=== PATIENT | male | born 1955 | race Caucasian/White ===

== ENCOUNTER 2020-11-05 15:57 | Outpatient (REF) | payer MEDICARE, MEDICAID, SELFPAY ==
[2020-11-05 17:04] LABS: Basophils Percent Auto 0.5 % (0-2); Imm Gran Abs Auto 0.09 X10*3/uL (0.00-0.03); Imm Gran Pct Auto 1.5 % (0.0-0.4); Mean Corpuscular HGB Conc 33.7 g/dl (31.0-36.0); PLT CLUMP 1; Red Cell Distribution Width 12.9 % (11.0-16.0); SCAN SMEAR FLAG 1
[2020-11-05 17:06] LABS: Eosinophils Absolute Auto 0.1 X10*3/uL (0.0-0.4); Eosinophils Percent Auto 1.8 % (0-4); Hematocrit 45.4 % (42-52); Hemoglobin 15.3 g/dl (14.0-18.0); Lymphocytes Absolute Auto 1.1 X10*3/uL (1.2-4.9); Lymphocytes Percent Auto 17.2 % (20-40); Mean Corpuscular Hemoglobin 30.4 pg (27.0-33.0); Mean Corpuscular Volume 90.3 fL (80-98); Mean Platelet Volume 11.2 fL (9.4-12.4); Monocytes Absolute Auto 0.4 X10*3/uL (0.1-1.2); Monocytes Percent Auto 6.1 % (2-11); Neutrophils Absolute Auto 4.5 X10*3/uL (2.0-8.3); Neutrophils Percent Auto 72.9 % (45-73); Platelet Count 112 X10*3/uL (160-400); Red Blood Count 5.03 X10*6/uL (4.60-5.80); White Blood Count 6.1 X10*3/uL (4.8-10.8)
[2020-11-05 17:23] LABS: Anion Gap 12 (12-20); Blood Urea Nitrogen 29 mg/dL (9-16); Calcium 9.5 mg/dL (8.4-10.2); Carbon Dioxide 26 mmol/L (22-29); Chloride 106 mmol/L (96-108); Estimated Glomerular Filt Rate 55; Sodium 139 mmol/L (135-145)
[2020-11-05 17:30] LABS: Creatinine Urine 32.61 mg/dL; Total Protein Urine Random < 7 mg/dL (<12)
== END 2020-11-05 15:58 | disposition home or self-care (01) ==
LOC: HO.LAB 15:57
PROVIDERS: Visit Provider Internal Medicine Hypertension Specialist
DX: N18.31 Chronic kidney disease, stage 3a (principal)
CPT/HCPCS: 36415; 80051; 82310; 82565; 84156; 84520; 85025

== ENCOUNTER 2021-05-07 09:07 | Outpatient (REF) | payer MEDICARE, MEDICAID, SELFPAY ==
[2021-05-07 11:04] LABS: Alanine Aminotransferase 32 U/L (0-40); Albumin Level 4.1 g/dL (3.5-5.0); Alkaline Phosphatase 84 U/L (39-117); Anion Gap 11 (12-20); Aspartate Amino Transferase 20 U/L (5-37); Bilirubin Total 1.1 mg/dL (0.0-1.0); Blood Urea Nitrogen 36 mg/dL (9-16); Calcium 9.9 mg/dL (8.4-10.2); Carbon Dioxide 31 mmol/L (22-29); Chloride 107 mmol/L (96-108); Estimated Glomerular Filt Rate 44; Glucose Random 83 mg/dL (60-115); Potassium 4.9 mmol/L (3.3-5.1); Sodium 144 mmol/L (135-145); Total Protein 6.8 g/dL (6.5-8.0)
[2021-05-07 11:29] LABS: Protein/Creatinine Ratio, Ur 0.07 (<0.2); Total Protein Urine Random 16 mg/dL (<12)
[2021-05-08 13:51] LABS: Calcium (PTHI) 9.6 mg/dL (8.6-10.3); PTHI 74 pg/mL (14-64)
== END 2021-05-07 09:08 | disposition home or self-care (01) ==
LOC: HO.LAB 09:07
PROVIDERS: Visit Provider Internal Medicine Hypertension Specialist
DX: I10 Essential (primary) hypertension (principal)
CPT/HCPCS: 36415; 80053; 83970; 84156

== ENCOUNTER 2022-11-24 09:37 | Outpatient (REF) | payer MEDICARE, SELFPAY ==
[2022-11-24 10:18] LABS: Hematocrit 47.6 % (42.0-52.0); Mean Corpuscular HGB Conc 33.6 g/dl (31.0-36.0); Mean Corpuscular Hemoglobin 30.1 pg (27.0-33.0); Mean Corpuscular Volume 89.5 fL (80.0-98.0); Mean Platelet Volume 9.9 fL (9.4-12.4); Platelet Count 132 X10*3/uL (160-400); Red Blood Count 5.32 X10*6/uL (4.60-5.80); Red Cell Distribution Width 13.5 % (11.0-16.0); White Blood Count 8.3 X10*3/uL (4.8-10.8)
[2022-11-24 10:50] LABS: Anion Gap 12 (12-20); Blood Urea Nitrogen 26 mg/dL (9-16); Calcium 9.5 mg/dL (8.4-10.2); Carbon Dioxide 27 mmol/L (22-29); Chloride 107 mmol/L (96-108); Estimated Glomerular Filt Rate 48; Glucose Random 140 mg/dL (60-115); Potassium 4.1 mmol/L (3.3-5.1); Sodium 142 mmol/L (135-145)
[2022-11-24 11:27] LABS: Protein/Creatinine Ratio, Ur 0.12 (<0.2); Total Protein Urine Random 50 mg/dL (<12)
== END 2022-11-24 09:38 | disposition home or self-care (01) ==
LOC: HO.LAB 09:37
PROVIDERS: Visit Provider Internal Medicine Hypertension Specialist
DX: N18.30 Chronic kidney disease, stage 3 unspecified (principal)
CPT/HCPCS: 36415; 80048; 82570; 84156; 85027

== ENCOUNTER 2024-03-29 13:23 | Outpatient (AMB) | payer MEDICARE, MEDICAID, SELFPAY ==
[2024-03-29 13:29] VITALS: BP 120/76; PULSE 97; O2SAT 97; BMI 26.7
--- NOTE | 2024-03-29 13:29 | HO.NEPHOV_ITS ---
Vital Signs 03/29/24 13:29 Height 5 ft 10 in Weight 186 lb BMI 26.7 BP 120/76 Blood Pressure Location Lt brachial Position Sitting Pulse 97 Pulse Source Pulse Oximeter Pulse Oximetry (%) 97 Oxygen Delivery Method Room Air Intake Visit Reasons: Previous pt-Transferring from [facility] [employer] Technician Required: No Accompanied by: Self / Same As Patient Allergies spironolactone Allergy (Unknown, Verified 03/29/24 13:33) Unknown Norvasc Allergy (Unknown, Uncoded 03/27/24 10:36) Unknown Medication List - Last Reconciled 03/29/24 by Lobito Quintanilla MD amlodipine 2.5 mg PO DAILY aspirin 81 mg PO DAILY atorvastatin 40 mg PO DAILY calcium carbonate-vitamin D3 600 mg-10 mcg (400 unit) 1 tab PO DAILY citalopram 20 mg PO DAILY cyclosporine 75 mg PO BID ferrous sulfate 325 mg PO Q OTHER DAY metoprolol tartrate 100 mg PO BID mycophenolate mofetil 500 mg PO BID pantoprazole 40 mg PO DAILY prednisolone 5 mg PO DAILY HPI Comments Details: Pleasant 68-year-old man with a history of cardiac transplant in 2003 He has mild CKD. Serum creatinine is between 1.2 to1.4 mg/dL. Recently had an episode of COVID-19 infection. He sustained BEBETO with a creatinine peaking at 2.18. Lasix was stopped. Renal function is improved. Recent creatinine is 1.23. Today he has no specific complaints today. [facility] Medical History (Updated 03/29/24 @ 13:39 by Lobito Quintanilla MD) Stage 3 chronic kidney disease Secondary hyperparathyroidism Hypertension Hyperlipidemia Anemia Surgical History H/O hernia repair Review of Systems Const Denies fever(s) and Denies weight loss Card Denies chest pain Resp Denies cough and Denies hemoptysis GI Denies abdominal pain, Denies diarrhea and Denies nausea Musc Denies back pain Neuro Denies focal weakness Physical Exam Vital Signs: Last Vital Signs Pulse 97 03/29/24 13:29 BP 120/76 03/29/24 13:29 Pulse Ox 97 03/29/24 13:29 Oxygen Delivery Method Room Air 03/29/24 13:29 BMI result Body Mass Index 26.7 Comfortable Neck supple no JVD. Lungs entry equal no rales. Heart S1-S2 heard no gallop or rub. Abdomen soft nontender. Neuro alert awake oriented. No asterixis. Extremities no edema. Results Reviewed Results Reviewed: As of 03/22/2024 serum creatinine 1.23 Nephrology Results: Hgb 16.0 g/dl (14.0-18.0) 11/24/22 WBC 8.3 X10*3/uL (4.8-10.8) 11/24/22 Plt Count 132 X10*3/uL (160-400) L 11/24/22 Sodium 142 mmol/L (135-145) 11/24/22 Potassium 4.1 mmol/L (3.3-5.1) 11/24/22 Chloride 107 mmol/L (96-108) 11/24/22 Carbon Dioxide 27 mmol/L (22-29) 11/24/22 BUN 26 mg/dL (9-16) H 11/24/22 Creatinine 1.46 mg/dL (0.5-1.4) H 11/24/22 Calcium 9.5 mg/dL (8.4-10.2) 11/24/22 Phosphorus 2.3 MG/DL (2.7-4.5) L 05/17/19 PTH Intact 74 pg/mL (14-64) H 05/07/21 Urine Creatinine 416.06 mg/dL 11/24/22 Protein/Creatinin Ratio 0.12 (<0.2) 11/24/22 Assessment & Plan Assessment & Plan (1) Heart transplant recipient: Code(s): Z94.1 - Heart transplant status Category: Medical (2) Stage 3 chronic kidney disease: Code(s): N18.30 - Chronic kidney disease, stage 3 unspecified Category: Medical Plan 68-year-old man with CKD setting of cardiac transplant. Renal function stable BEBETO has resolved. Recent creatinine was 1.23. This is probably his baseline. Blood pressure is well controlled. Fluid status is optimal. At this point we will hold off on using Lasix. I have encouraged him to keep watching his weight at home. If the weight goes up I will add Lasix 20 mg a day. Continue to avoid nephrotoxic agents including NSAIDs. He will continue to follow up with Cardiac transplant program in [facility]. Orders: Orders Complete Blood Count no Diff 6 Months N18.30 - Chronic kidney disease, stage 3 unspecified Basic Metabolic Panel 6 Months N18.30 - Chronic kidney disease, stage 3 unspecified Total Protein Urine Random 6 Months N18.30 - Chronic kidney disease, stage 3 unspecified UA and rflx microscopic 6 Months N18.30 - Chronic kidney disease, stage 3 unspecified Creatinine Urine 6 Months N18.30 - Chronic kidney disease, stage 3 unspecified Coding Level of Care Code Est Pt Level 4 (45404) Diagnoses Heart transplant recipient Z94.1 Stage 3 chronic kidney disease N18.30
--- OUTSIDE RECORDS SUMMARY | 2024-03-29 15:48 | XMS_ITS | Clinical Summary ---
Author Organization [facility] Address [address] [place] [address] Care Team Providers Care Mother Baby Rn Name Role Phone Patient, Has No Pcp Or Ref Primary Care Provider Unavailable Allergies Active Allergy Reactions Criticality Noted Date Comments Spironolactone Breast enlargement Medications aspirin 81 mg EC tablet 81 mg daily. 03/26/19 09 Active multivitamin no.44-vit D3-K 1,000-800 unit-mcg capsule Multivitamins CAPS 1TAB Qday, Refills: 0 Started -Mar-2008 Active 03/26/19 09 Active amoxicillin (AMOXIL) 500 mg capsule Take 4 capsules (2,000 mg total) by mouth daily. 1 HOUR PRIOR TO DENTAL APPOINTMENT 16 capsule 4 08/31/19 19 Active calcium carbonate-vitamin D3 600 mg(1,500mg) -400 unit per tablet Take 1 tablet by mouth once a day. 90 tablet 3 10/23/19 21 Active ferrous sulfate 325 mg (65 mg iron) tablet Take 1 tablet every other day 60 tablet 11 07/24/19 22 Active ciclopirox (PENLAC) 8 % solutionIndicatio ns:Onychomycosis Apply over nail and surrounding skin. Apply daily over previous coat. After seven (7) days, may remove with alcohol and continue cycle. 6.6 mL 3 4 8:00 AM EST 09/21/19 23 Active NeoraL 25 mg capsule Take 3 capsules (75 mg total) by mouth 2 times a day. 540 capsule 3 4 1:09 PM EDT 06/17/19 24 Active amLODIPine (NORVASC) 2.5 mg tablet Take 1 tablet (2.5 mg total) by mouth once a day. 90 tablet 3 4 11:20 AM EST 07/10/19 24 Active atorvastatin (LIPITOR) 40 mg tablet Take 1 tablet (40 mg total) by mouth daily. 90 tablet 3 4 9:53 PM EST 10/25/19 24 Active citalopram (CeleXA) 20 mg tablet Take 1 tablet (20 mg total) by mouth daily. 90 tablet 3 4 9:53 PM EST 10/25/[address] (PROTONIX) 40 mg tablet Take 1 tablet (40 mg total) by mouth once a day. 90 tablet 3 4 1:09 PM EDT 12/27/19 24 Active mycophenolate (CELLCEPT) 500 mg tabletIndications :Heart replaced by transplant (HCC) Take 1 tablet (500 mg total) by mouth 2 times a day. 180 tablet 3 4 1:09 PM EDT 12/28/19 24 Active predniSONE (DELTASONE) 5 mg tablet Take 1 tablet (5 mg total) by mouth daily. 90 tablet 3 03/21/19 25 Active losartan (COZAAR) 100 mg tabletIndications :Other hyperlipidemia Take 1 tablet (100 mg total) by mouth daily. 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 Patient has been seen by Pulmonology in 2021 with pulmonary function testing at the time showing a mild obstructive defect but is not currently on any inhalers Hyperparathyroidism due to renal insufficiency 0 03/12/2024 COVID 03/12/2024 Assessment & Plan (03/15/2024 9:53 AM EST): Patient has a history of heart failure requiring transplantation 20 years ago and is presenting to hospital from [place] secondary to hypoxic respiratory failure initially requiring high flow nasal cannula. Patient was ultimately able to be de-escalated to room air following multiple nebulizer treatments and steroids. Initial venous blood gas here showed PH of 7.54, PCO2 of 16.1, PO2 of 33, lactic acid of 3.58. Initial chest x-ray showed no gross focal consolidation, pleural effusion or pneumothorax; Hazy and streaky left basilar/retrocardiac opacities, likely representing atelectasis; Heart size and pulmonary vasculature within normal limits given technique; No acute osseous abnormality; Sternotomy wires. Patient's high sensitivity troponins were slightly elevated from 28 to 27 in emergency department. Patient's initial proBNP was 414 and on my evaluation he demonstrated no evidence of fluid overload. Patient received a dose of ceftriaxone as well as doxycycline prior to transfer over to our facility. - Transplant Infectious Disease consulted, appreciate recs - Continue COVID pna treatment, remdesivir x5 days - continue dexamethasone while admitted, switch back to home prednisone on discharge - discontinue antibiotics - Received 1x ceftriaxone and doxycycline -Sputum culture -Continuous pulse oximetry -Guaifenesin as needed for cough -Acetaminophen as needed for pain/fever -Strict airborne/contact precautions Assessment & Plan (03/14/2024 10:11 AM EST): Patient has a history of heart failure requiring transplantation 20 years ago and is presenting to hospital from [place] secondary to hypoxic respiratory failure initially requiring high flow nasal cannula. Patient was ultimately able to be de-escalated to room air following multiple nebulizer treatments and steroids. Initial venous blood gas here showed PH of 7.54, PCO2 of 16.1, PO2 of 33, lactic acid of 3.58. Initial chest x-ray showed no gross focal consolidation, pleural effusion or pneumothorax; Hazy and streaky left basilar/retrocardiac opacities, likely representing atelectasis; Heart size and pulmonary vasculature within normal limits given technique; No acute osseous abnormality; Sternotomy wires. Patient's high sensitivity troponins were slightly elevated from 28 to 27 in emergency department. Patient's initial proBNP was 414 and on my evaluation he demonstrated no evidence of fluid overload. Patient received a dose of ceftriaxone as well as doxycycline prior to transfer over to our facility. - Transplant Infectious Disease consulted - Continue COVID pna treatment, remdesivir x5 days - continue dexamethasone while admitted, switch back to home prednisone on discharge - discontinue antibiotics - Received 1x ceftriaxone and doxycycline -Sputum culture -Continuous pulse oximetry -Guaifenesin as needed for cough -Acetaminophen as needed for pain/fever -Strict airborne/contact precautions Assessment & Plan (03/13/2024 1:09 PM EST): Patient has a history of heart failure requiring transplantation 20 years ago and is presenting to hospital from [place] secondary to hypoxic respiratory failure initially requiring high flow nasal cannula. Patient was ultimately able to be de-escalated to room air following multiple nebulizer treatments and steroids. Initial venous blood gas here showed PH of 7.54, PCO2 of 16.1, PO2 of 33, lactic acid of 3.58. Initial chest x-ray showed no gross focal consolidation, pleural effusion or pneumothorax; Hazy and streaky left basilar/retrocardiac opacities, likely representing atelectasis; Heart size and pulmonary vasculature within normal limits given technique; No acute osseous abnormality; Sternotomy wires. Patient's high sensitivity troponins were slightly elevated from 28 to 27 in emergency department. Patient's initial proBNP was 414 and on my evaluation he demonstrated no evidence of fluid overload. Patient received a dose of ceftriaxone as well as doxycycline prior to transfer over to our facility. - Transplant Infectious Disease consulted - Continue COVID pna treatment, remdesivir x5 days - continue dexamethasone while admitted, switch back to home prednisone on discharge - discontinue antibiotics - Received 1x ceftriaxone and doxycycline -Sputum culture -Continuous pulse oximetry -Guaifenesin as needed for cough -Acetaminophen as needed for pain/fever -Strict airborne/contact precautions Acute kidney injury superimposed on CKD 03/12/19 25 Assessment & Plan (03/15/2024 9:53 AM EST): Patient has a history of chronic kidney disease and follows with Nephrology in the outpatient setting. Patient's baseline creatinine of 1.2-1.4; current creatinine of 2.18. Patient's troponins were trending flat and proBNP of slightly greater than 400. - Hold home losartan - Hold off on further fluids with heart failure history - Cr stable, 1.6, likely new baseline 2/2 CKD - Transplant nephrology consulted - Monitor [facility] daily Assessment & Plan (03/14/2024 10:11 AM EST): Patient has a history of chronic kidney disease and follows with Nephrology in the outpatient setting. Patient's baseline creatinine of 1.2-1.4; current creatinine of 2.18. Patient's troponins were trending flat and proBNP of slightly greater than 400. - Holding home losartan - urine electrolytes - Holding off on further fluids with heart failure history - Transplant nephrology consulted - Monitor [facility] daily Assessment & Plan (03/13/2024 1:09 PM EST): Patient has a history of chronic kidney disease and follows with Nephrology in the outpatient setting. Patient's baseline creatinine of 1.2-1.4; current creatinine of 2.18. Patient's troponins were trending flat and proBNP of slightly greater than 400. - Holding home losartan - urine electrolytes - Holding off on further fluids with heart failure history - Transplant nephrology consulted - Monitor [facility] daily Gastroesophageal reflux disease without esophagi tis 03/12/2024 Assessment & Plan (03/15/2024 9:53 AM EST): - Continue home pantoprazole 40 mg daily Assessment & Plan (03/14/2024 10:11 AM EST): - Continue home pantoprazole 40 mg daily Assessment & Plan (03/13/2024 10:11 AM EST): - Continue home pantoprazole 40 mg daily Abnormal stress test 11/17/2023 Hyperparathyroidism 03/18/2020 Subclinical hypothyroidism 02/15/2020 Assessment & Plan (03/14/2024 10:11 AM EST): Last reported TSH of 1.086 2 years ago. Patient not currently on supplementation - consider repeat TSH Assessment & Plan (03/13/2024 1:09 PM EST): Last reported TSH of 1.086 2 years ago. 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 Patient is chronically on mycophenolate mofetil, and cyclosporine as well as prednisone 5 mg daily. Patient has been seen by Pulmonology in 2021 with pulmonary function testing at the time showing a mild obstructive defect but is not currently on any inhalers and did not follow-up it seems. Patient was referred in the outpatient setting to go back to pulmonology for evaluation. Last reported echocardiogram in 2021 demonstrated ejection fraction of 70% with moderately dilated left atrium and inability to assess diastolic function. Patient had a positive stress test screening within the past month ultimately leading to catheterization on 02/10/2024 which demonstrated minimal luminal irregularities in the circumflex, right coronary artery and left anterior descending and left main. Cardiology was consulted in emergency department and did not believe that there was any acute intervention required on their end and believe this was all secondary to COVID and associated pneumonia -Continue home mycophenolate mofetil 500 mg twice daily, cyclosporine 75 mg twice daily -Transition home prednisone 5 mg daily to dexamethasone 6 mg daily x 7-day course in the setting of active COVID infection - Cardiology consulted, recommended continued monitoring, no changes to medications -Monitor patient on telemetry -Monitor vitals every 4 hours and CBC daily -Monitor daily weights and strict I's and O's Assessment & Plan (03/14/2024 10:11 AM EST): 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 Patient is chronically on mycophenolate mofetil, and cyclosporine as well as prednisone 5 mg daily. Patient has been seen by Pulmonology in 2021 with pulmonary function testing at the time showing a mild obstructive defect but is not currently on any inhalers and did not follow-up it seems. Patient was referred in the outpatient setting to go back to pulmonology for evaluation. Last reported echocardiogram in 2021 demonstrated ejection fraction of 70% with moderately dilated left atrium and inability to assess diastolic function. Patient had a positive stress test screening within the past month ultimately leading to catheterization on 02/10/2024 which demonstrated minimal luminal irregularities in the circumflex, right coronary artery and left anterior descending and left main. Cardiology was consulted in emergency department and did not believe that there was any acute intervention required on their end and believe this was all secondary to COVID and associated pneumonia -Continue home mycophenolate mofetil 500 mg twice daily, cyclosporine 75 mg twice daily -Transition home prednisone 5 mg daily to dexamethasone 6 mg daily x 7-day course in the setting of active COVID infection - Cardiology consulted, recommended continued monitoring, no changes to medications -Monitor patient on telemetry -Monitor vitals every 4 hours and CBC daily -Monitor daily weights and strict I's and O's Assessment & Plan (03/13/2024 1:09 PM EST): 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 Patient is chronically on mycophenolate mofetil, and cyclosporine as well as prednisone 5 mg daily. Patient has been seen by Pulmonology in 2021 with pulmonary function testing at the time showing a mild obstructive defect but is not currently on any inhalers and did not follow-up it seems. Patient was referred in the outpatient setting to go back to pulmonology for evaluation. Last reported echocardiogram in 2021 demonstrated ejection fraction of 70% with moderately dilated left atrium and inability to assess diastolic function. Patient had a positive stress test screening within the past month ultimately leading to catheterization on 02/10/2024 which demonstrated minimal luminal irregularities in the circumflex, right coronary artery and left anterior descending and left main. Cardiology was consulted in emergency department and did not believe that there was any acute intervention required on their end and believe this was all secondary to COVID and associated pneumonia -Continue home mycophenolate mofetil 500 mg twice daily, cyclosporine 75 mg twice daily -Transition home prednisone 5 mg daily to dexamethasone 6 mg daily x 7-day course in the setting of active COVID infection - Cardiology consulted, recommended continued monitoring, no changes to medications -Monitor patient on telemetry -Monitor vitals every 4 hours and CBC daily -Monitor daily weights and strict I's and O's Pulmonary nodule 01/13/2016 Dyspnea 01/21/2015 Hoarseness 01/21/2015 SOB (shortness of breath) 01/03/2015 Bowel incontinence 10/04/2014 Dyslipidemia 11/30/2013 Dyslipidemia 11/30/2013 Assessment & Plan (03/15/2024 9:53 AM EST): - Continue home atorvastatin 40 mg daily Assessment & Plan (03/14/2024 10:11 AM EST): - Continue home atorvastatin 40 mg daily Assessment & Plan (03/13/2024 10:11 AM EST): - Continue home atorvastatin 40 mg daily Trauma, blunt 08/31/2013 Sebaceous Hyperplasia 11/07/2012 Hemiparesis Of Right Side - (Nondominant Side) 0 03/17/2012 Late CVD Effects: Fluency Disorder 03/17/2012 Aphasia 03/17/2012 Stuttering 03/17/2012 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 13 Osteopenia 08/19/2010 Osteopenia 08/19/2010 Stroke syndrome 07/31/2010 Overview (11/26/2016): During Heart Transplant - 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 Adjustment disorder 07/31/2010 Essential hypertension 07/31/2010 Assessment & Plan (03/15/2024 9:53 AM EST): - Held home amlodipine in setting of lactic acidosis - Held home losartan due to acute kidney injury - Resume as pressures allow Assessment & Plan (03/14/2024 10:11 AM EST): - Holding home amlodipine in setting of lactic acidosis - Holding home losartan due to acute kidney injury Assessment & Plan (03/13/2024 10:11 AM EST): - Holding home amlodipine in setting of lactic acidosis - Holding home losartan due to acute kidney injury CKD stage 3a, GFR 45-59 ml/min 07/31/2010 Overview (12/28/2019): Reaplcing Diagnoses that were inactivated after 12/06/2019 regulatory diagnosis import. Abnormal PFTs SOB (shortness of breath) Resolved Problems Problem Noted Date Diagnosed Date Resolved Date Lactic acidosis 03/12/2024 03/15/2024 Assessment & Plan (03/14/2024 10:11 AM EST): Was noted emergency department to have initial lactic acid of 4.2 which improved to 2.0 with antibiotics and fluids. Patient was given stacked nebulizers in emergency department and at the moment demonstrates no signs of sepsis apart from a very slight leukopenia. -lactic acid resolved Assessment & Plan (03/13/2024 1:09 PM EST): Was noted emergency department to have initial lactic acid of 4.2 which improved to 2.0 with antibiotics and fluids. Patient was given stacked nebulizers in emergency department and at the moment demonstrates no signs of sepsis apart from a very slight leukopenia. -lactic acid resolved Encounters Date Type Department Care Team Description 03/21/[address] Cardiology Medicine [address] [place] [id number] Safety Supervisor: Stanislav Price MD 03/20/[address] Cardiology Medicine [address] [place] [id number] Safety Supervisor: Stanislav Price MD 03/12/2024 12:37 PM EST - 03/16/2024 3:25 PM EST Hospital Encounter [facility] Emergency Department [address] [place] [id number] Delmy Ocampo MD Pereira, Datson Marian, MD Thomas, Samuel, DO Madireddy, Rico Cuellar MD COVID-19 (Primary Dx); Other hyperlipidemia; COVID Discharge Disposition: Home or Self Care () 02/10/2024 9:20 AM EST - 02/10/2024 10:29 AM EST Surgery [facility] Heart [facility] V[facility] Interventional Lab [address] [place] [id number] Jerrell Camarillo MD Coronary angiography 02/10/2024 7:51 AM EST - 02/10/2024 3:08 PM EST Hospital Encounter [facility] V[facility] Interventional Lab [address] [place] [address] Jerrell Camarillo MD Heart replaced by transplant (HCC); Abnormal stress test Discharge Disposition: Home or Self Care () 02/09/2024 myChart Message [facility] Building 4th floor Cardiology Medicine [address] [place] [address] Safety Supervisor: Jerrell Christopher MD Cardiac cath tomorrow from Last 3 Months Family History Medical History Relation Name Comments Other Mother Family History of malignant neoplasm Other Other 1 Denied Family h istory of Thyroid Disorder Other Other 2 Denied Family h istory of Diabetes Mellitus Other Other 3 Denied Family h istory of Hip Fracture Other Other 4 Denied Family h istory of Osteoporosis Other Other 5 Family history of Brain Cancer Daughter Other Other 6 Family history of Lung Cancer Maternal Aunt - smoker Other Other 7 Family history of Coronary Artery Disease Father had CABG Other Other 8 Denied Family h istory of Stroke Syndrome Other Other 9 Denied Family h istory of Sarcoidosis Relation Name Status Comments Mother Other 1 Other 2 Other 3 Other 4 Other 5 Other 6 Other 7 Other 8 Other 9 Social History Tobacco Use Types Packs/Day Years Used Date Smoking Tobacco: Never Smokeless Tobacco: Never Tobacco Cessation:Counseling Given: Not Answered Comments:: Alcohol Use Standard Drinks/Week Comments No 0 (1 standard drink = 0.6 oz pur e alcohol) Sex and Gender Information Value Date Recorded Sex Assigned at Male 02/12/2020 11:42 AM EST Legal Sex Male 9:16 AM EDT Gender Identity Male 02/12/2020 11:42 AM EST Sexual Orientation Straight 02/12/2020 11 :42 AM EST Last Filed Vital Signs Vital Sign Reading Time Taken Comments Blood Pressure 125/82 03/16/2024 11:48 AM EST Pulse 76 03/16/2024 11:48 AM EST Temperature 36.9 ??C (98.4 ??F) 03/16/2024 11:[address] Respiratory Rate 18 03/16/2024 11:48 AM EST Oxygen Saturation 98% 03/16/2024 11:48 AM EST Inhaled Oxygen Concentration - - Weight 83.9 kg (185 lb) 03/12/2024 12:42 PM EST Height 177.8 cm (5' 10 ) 03/12/2024 12:42 PM EST Body Mass Index 26.54 03/12/2024 12:42 PM EST Plan of Treatment Upcoming Encounters Date Type Department Care Team (Late st Contact Info) Description 04/24/2024 1:00 PM EST Follow-Up [facility] 4th floor Cardiology Medicine [address] [place] [phone] Safety Supervisor: Mariah Matt 05/24/2024 10:30 AM EDT Follow-Up [address] Cardiology Medicine [address] [place] [phone] Safety Supervisor: Mariah Matt 06/25/2024 1:15 PM EDT Follow-Up [facility] 4th Floor [address] [place] [address] Safety Supervisor: Diane Sofia PA [address] [place] [address] Health Maintenance Due Date Last Done Comments Cologuard 1955 Colon Cancer Screening 1955 Colonoscopy 1957 FOBT / Fit Test 1957 Sigmoidoscopy 1957 Zoster Vaccines (1 of 2) 1976 RSV Vaccine (60+ years old and patients) (1 - Risk 60-74 years 1-dose series) 2017 Pneumococcal Vaccine: 65+ Years (3 of 3 - PPSV23 or PCV20) 06/08/2018 02/04/2014, 06/08/2013 25 Hydroxy / Vitamin D 07/24/2021 , 02/15/2020, 12/01/2010, Additional history exists PTH 07/24/2021 07/24/2020, 02/04, 12/01/2010, Additional history exists DTaP,Tdap,and Td Vaccines (2 - Td or Tdap) 11/03/2022 11/03/2012 COVID-19 Vaccine (4 - season) 2023 02/27/2021, 04/25/2020, 04/04/2020 Influenza Vaccine (#1) 2023 , 11/24/2017, 12/27/2016, Additional history exists Alcohol/Substance Use Screening 03/07/2024 Depression Screening and Follow-Up 03/07/2024 Health Care Proxy Review 03/07/2024 [employer] Annual Screening 03/07/2024 Basic Metabolic Panel 09/13/2024 03/16/2024 , 03/15/2024, 03/14/2024, Additional history exists Phosphorus 03/12/2025 03/12/2024, 11/05, 07/21/2023, Additional history exists Urine Microalbumin 03/15/2025 03/15/2024 Fall Risk Screening 03/16/2025 03/16/2024 Hemoglobin 03/16/2025 03/16/2024, 01/0 11/2024, 03/14/2024, Additional history exists Tobacco Screening 03/07/2042 11/24/2023 Hepatitis C Screening Completed 10/03/2015, 010 Statin Therapy Completed 10/25/2023 Hepatitis B Vaccines Aged Out No long er eligible based on patient's age to complete this topic Procedures * Due to [place] state law, this organization might not be sharing negative HIV tests. Procedure Name Priority Date/Time Associated Diagnosis Comments COMPREHENSIVE METABOLIC PANEL STAT 03/16/2024 10:24 AM EST CBC AUTO DIFFERENTIAL Timed 03/16/2024 7:28 AM EST MICROALBUMIN, RANDOM URINE WITH CREATININE Routine 03/15/2024 2:47 PM EST PRICE TOP, URN Routine 03/15/2024 2:47 PM EST UA/CULTURE REFLEX Routine 03/15/2024 2:4 7 PM EST URINALYSIS W/REFLEX TO MICROSCOPIC & CULTURE Routine 03/15/2024 2:47 PM EST COMPREHENSIVE METABOLIC PANEL Routine 03/15/2024 5:53 AM EST CBC AUTO DIFFERENTIAL Timed 03/15/2024 5:53 AM EST COMPREHENSIVE METABOLIC PANEL STAT 03/14/2024 8:35 AM EST CBC AUTO DIFFERENTIAL Timed 03/14/2024 7:40 AM EST SODIUM, RANDOM URINE STAT 03/13/2024 8:08 AM EST LACTIC ACID, PLASMA Routine 03/13/2024 5 :22 AM EST MAGNESIUM Routine 03/13/2024 5:22 AM EST CBC AUTO DIFFERENTIAL Timed 03/13/2024 5:22 AM EST COMPREHENSIVE METABOLIC PANEL Routine 03/13/2024 5:22 AM EST ECG 12-LEAD STAT 03/12/2024 9:25 PM EST LACTIC ACID, PLASMA REPEATED Timed 03/12/2024 8:16 PM EST LACTIC ACID, PLASMA W/ REPEAT STAT 03/12/2024 5:15 PM EST PHOSPHORUS STAT Add-on 03/12/2024 2:23 PM EST MAGNESIUM STAT Add-on 03/12/2024 2:23 PM EST TROPONIN T HIGH SENSITIVITY STAT 03/12/2024 2:23 PM EST XR CHEST PORTABLE 1 VIEW STAT 03/12/2024 1:20 PM EST GOLD TOP Routine 03/12/2024 12:50 PM EST RAINBOW DRAW Routine 03/12/2024 12:50 PM EST SMEAR REVIEW STAT 03/12/2024 12:49 PM EST PRICE TOP Routine 03/12/2024 12:49 PM EST LIGHT BLUE TOP Routine 03/12/2024 12:49 PM EST GOLD TOP Routine 03/12/2024 12:49 PM EST RED TOP Routine 03/12/2024 12:49 PM EST LAVENDER TOP Routine 03/12/2024 12:49 PM EST LAVENDER TOP Routine 03/12/2024 12:49 PM EST LIGHT GREEN TOP Routine 03/12/2024 12:49 PM EST LACTIC ACID, PLASMA STAT Add-on 03/12/2024 1 2:49 PM EST COMPREHENSIVE METABOLIC PANEL STAT Add-on 03/12/2024 12:49 PM EST CBC AUTO DIFFERENTIAL STAT Add-on 03/12/2024 12:49 PM EST N-TERMINAL PROBRAIN NATRIURETIC PEPTIDE STAT 03/12/2024 12:49 PM EST TROPONIN T HIGH SENSITIVITY STAT Add-on 03/12/2024 12:49 PM EST RAINBOW DRAW Routine 03/12/2024 12:49 PM EST POCT I-STAT LACTATE W/VBG Routine 03/12/2024 12:40 PM EST HEART & VASCULAR - SCANNED 03/12/2024 HEART & VASCULAR - SCANNED 03/12/2024 AMB EXTERNAL XR CHEST, OUTSIDE RESULT 03/12/2024 CARDIAC CATHETERIZATION Routine 02/10/20 24 11:24 AM EST Heart replaced by transplant (HCC) Abnormal stress test CARDIAC CATHETERIZATION Routine 02/10/20 11:24 AM EST Heart replaced by transplant (HCC) Abnormal stress test POCT I-STAT ACTIVATED CLOTTING TIME Routine 02/10/2024 11:12 AM EST ECG 12-LEAD Routine 02/10/2024 8:08 AM EST BASIC METABOLIC PANEL Routine 01/26/2024 1:44 PM EST ASHD (arteriosclerotic heart disease) CBC Routine 01/26/2024 1:44 PM EST ASHD (arteriosclerotic heart disease) VITAMIN D, 25-HYDROXY, TOTAL, IMMUNOASSAY Routine 07/24/2020 11:27 AM EDT Osteopenia Subclinical hypothyroidism Stage 3a chronic kidney disease Hyperparathyroidi sm (CMS/HCC) (HCC) PTH, INTACT (WITHOUT CALCIUM) Routine 07/24/2020 11:27 AM EDT Osteopenia Subclinical hypothyroidism Stage 3a chronic kidney disease Hyperparathyroidi sm (CMS/HCC) (HCC) HEPATITIS C ANTIBODY W/REFLEX TO HCV RNA, QUANTITATIVE PCR Routine 10/03/2015 10:44 AM EDT from Last 3 Months or Most Recently Relevant to Health Maintenance Results * Due to [place] state law, this organization might not be sharing negative HIV tests. * (ABNORMAL) Comprehensive Metabolic Panel (03/16/2024 10:24 AM EST) Only the most recent of5 resultswithin the time period is included. NA 139 135 - 145 mmol/L 03/16/2024 11:34 AM EST [facility] K 3.6 3.5 - 5.3 mmol/L 03/16/2024 11:34 AM EST [facility] Cl 104 98 - 107 mmol/L 03/16/2024 11:34 AM EST [facility] CO2 23 22 - 32 mmol/L 03/16/2024 11:34 AM EST [facility] Anion Gap 12 5 - 15 03/16/2024 11:34 AM EST [facility] Glucose 99 65 - 99 mg/dL 03/16/2024 11:34 AM EST [facility] Creatinine 1.38(H) 0.60 - 1.30 mg/dL 03/16/2024 11:34 AM EST [facility] Calcium 8.2(L) 8.6 - 10.5 mg/dL 03/16/2024 11:34 AM EST [facility] Total Protein 6.0 6.0 - 8.0 g/dL 03/16/2024 11:34 AM EST [facility] Albumin 3.5 3.5 - 5.2 g/dL 03/16/2024 11:34 AM EST [facility] Bilirubin, Total 0.8 0.2 - 1.2 mg/dL 03/16/2024 11:34 AM EST [facility] Alkaline Phosphatase 70 35 - 129 U/L 03/16/2024 11:34 AM EST [facility] AST 34 10 - 40 U/L 03/16/2024 11:34 AM EST [facility] ALT 41(H) 10 - 40 U/L 03/16/2024 11:34 AM EST [facility] BUN 41(H) 7 - 23 mg/dL 03/16/2024 11:34 AM EST [facility] eGFR 56(L) >=60 mL/min/1 .73m2 03/16/2024 11:34 AM EST [facility] Comment:The estimated glomer ular filtration rate (eGFR) is calculated using a new formula developed by the NKF-ASN task force to eliminate race-based correction factors. The new formula uses serum/plasma creatinine, age, and gender to determine eGFR. A value below 60mls/min might indicate kidney disease and will be flagged. For additional information, see Lisbeth et al, Am J Kidney Dis. 2021;79(2):268- 288, A Unifying Approach for GFR estimation: Recommendations of the NKF-ASN Task Force on Reassessing the Inclusion of Race in Diagnosing Kidney Disease . Globulin, Total 2.5 2.1 - 4.2 g/dL 03/16/2024 11:34 AM EST [facility] A/G Ratio 1.4(L) 1.5 - 3.0 03/16/2024 11:34 AM EST [facility] Blood Structure of peripheral vein / Unknown Venipuncture / Unknown 03/16/2024 10:24 AM EST 03/16/2024 10:53 AM EST Rico Landa MD LAB BLOOD ORDERABL ES Final Result [facility] [address] [place] [id number], * (ABNORMAL) CBC Auto Differential (03/16/2024 7:28 AM EST) Only the most recent of5 resultswithin the time period is included. WBC 6.8 3.8 - 10.8 10*3/uL 03/16/2024 8:39 AM EST [facility] RBC 5.57 4.20 - 5.80 10*6/uL 03/16/2024 8:39 AM EST [facility] Hemoglobin 16.3 13.2 - 17.1 g/dL 03/16/2024 8:39 AM EST [facility] Hematocrit 47.8 38.5 - 50.0 % 03/16/2024 8:39 AM EST [facility] MCV 85.8 80.0 - 100.0 fL 03/16/2024 8:39 AM EST [facility] MCH 29.3 27.0 - 33.0 pg 03/16/2024 8:39 AM EST [facility] MCHC 34.1 32.0 - 36.0 g/dL 03/16/2024 8:39 AM EST [facility] RDW 12.9 11.0 - 15.0 % 03/16/2024 8:39 AM EST [facility] Platelets 115(L) 140 - 400 10*3/uL 03/16/2024 8:39 AM EST [facility] MPV 11.2 7.5 - 12.5 fL 03/16/2024 8:39 AM EST [facility] Neutrophil % 78.6 % 03/16/2024 8:39 AM EST [facility] Immature Grans % 0.9 0.0 - 0.9 % 03/16/2024 8:39 AM EST [facility] Lymphocyte % 12.4 % 03/16/2024 8:39 AM EST [facility] Monocyte % 7.4 % 03/16/2024 8:39 AM EST [facility] Eosinophil % 0.6 % 03/16/2024 8:39 AM EST [facility] Basophil % 0.1 % 03/16/2024 8:39 AM EST [facility] Neutrophil # 5.34 1.50 - 7.80 10*3/uL 03/16/2024 8:39 AM EST [facility] Immature Grans # 0.06(H) <=0.03 10*3/uL 03/16/2024 8:39 AM EST [facility] Lymphocyte # 0.80(L) 0.85 - 3.90 10*3/uL 03/16/2024 8:39 AM EST [facility] Monocyte # 0.50 0.20 - 0.95 10*3/uL 03/16/2024 8:39 AM EST [facility] Eosinophil # <0.03 0.02 - 0.50 10*3/uL 03/16/2024 8:39 AM EST [facility] Basophil # <0.03 0.00 - 0.20 10*3/uL 03/16/2024 8:39 AM EST [facility] nRBC % 0.0 /100 WBCs 03/16/2024 8:39 AM EST [facility] nRBC # <0.01 <0.01 10*3/uL 03/16/2024 8:39 AM EST [facility] Blood Structure of peripheral vein / Unknown Venipuncture / Unknown 03/16/2024 7:28 AM EST 03/16/2024 8:15 AM EST Andrew Edward DO LAB BLOOD ORDERABLES Final Resu lt Performing Organization Address City/[facility]/ZIP Co de Phone Number [facility] [address] [place] [address], [place] * Price Top, Urine (03/15/2024 2:47 PM EST) Extra Tube Hold for add-ons. 03/15/2024 7:05 PM EST [facility] Comment:Auto resulted. Urine Urine specimen collection, clean catch / Unknown Non-Blood Collection / Unknown 03/15/2024 2:47 PM EST 03/15/2024 3:12 PM EST Rico Landa MD LAB URINE ORDERABL ES Final Result Performing Organization Address [facility]/ZIP Co de Phone Number [facility] [address] [place] [address], [place] * Urinalysis W/Reflex to Microscopic & Culture (03/15/2024 2:47 PM EST) Color, Urine Yellow Colorless, Light Yellow, Yellow, Dark Yellow 03/15/2024 3:35 PM EST [facility] Clarity, Urine Clear Clear 03/15/2024 3:35 PM EST [facility] Specific [place], Urine 1.023 1.005 - 1.030 03/15/2024 3:35 PM EST [facility] pH, Urine 5.0 4.6 - 8.0 03/15/2024 3:35 PM EST [facility] Protein, Urine Negative Negative 03/15/2024 3:35 PM EST [facility] Glucose, Urine Negative Negative 03/15/2024 3:35 PM EST [facility] Ketones, Urine Negative Negative 03/15/2024 3:35 PM EST [facility] Bilirubin, Urine Negative Negative 03/15/2024 3:35 PM EST [facility] Blood, Urine Negative Negative 03/15/2024 3:35 PM EST [facility] Nitrite, Urine Negative Negative 03/15/2024 3:35 PM EST [facility] Urobilinogen, Urine Normal Normal 03/15/2024 3:35 PM EST [facility] Leukocyte Esterase, Urine Negative Negative 03/15/2024 3:35 PM EST [facility] Urine Urine specimen collection, clean catch / Unknown Non-Blood Collection / Unknown 03/15/2024 2:47 PM EST 03/15/2024 3:19 PM EST us Rico Landa MD LAB URINE ORDERABL ES Final Result [facility] [address] [place] [address], [place] * (ABNORMAL) Microalbumin, Random Urine with Creatinine (03/15/2024 2:47 PM EST) Microalbumin, Urine 6.0 mg/dL 03/15/2024 10:14 PM EST [facility] Creatinine, Urine 133 22 - 328 mg/dL 03/15/2024 10:14 PM EST [facility] Microalb/Creat Ratio, Random Urine 45.1(H) <30.0 mcg/mgCr 03/15/2024 10:14 PM EST [facility] Comment: Microalbumin Reference Range: Normal ? <30 mcg/mg Creatinine Microalbuminuria ? 30-300 mcg/mg Creatinine Clinical Albuminuria >300 mcg/mg Creatinine Reference: ADA Guideline. Diabetes Care. 2004;27 (suppl 1) Urine Urine specimen collection, clean catch / Unknown Non-Blood Collection / Unknown 03/15/2024 2:47 PM EST 03/15/2024 3:19 PM EST Rico Landa MD LAB URINE ORDERABL ES Final Result Performing Organization Address [facility]/ZIP Co de Phone Number [facility] [address] [place] [phone], * (ABNORMAL) Sodium, Random Urine with Creatinine (03/13/2024 8:08 AM EST) Sodium, Urine 114 mmol/L 03/13/2024 8:43 AM EST [facility] Creatinine, Urine 36 22 - 328 mg/dL 03/13/2024 8:43 AM EST [facility] Sodium/Creatin ine, Urine Ratio 317(H) 23 - 229 mmol/gmCr 03/13/2024 8:43 AM EST [facility] Urine Voided urine specimen / Unknown Non-Blood Collection / Unknown 03/13/2024 8:08 AM EST 03/13/2024 8:14 AM EST Andrew Edward DO LAB URINE ORDERABLES Final Resu lt [facility] [address] [place] [address], * Magnesium (03/13/2024 5:22 AM EST) Only the most recent of2 resultswithin the time period is included. MG 2.3 1.6 - 2.4 mg/dL 03/13/2024 6:03 AM EST [facility] Blood Structure of peripheral vein / Unknown Venipuncture / Unknown 03/13/2024 5:22 AM EST 03/13/2024 5:33 AM EST Pager BLOOD ORDERABLES Final Resu lt Performing Organization Address [facility] Co de Phone Number [facility] [address] [place] [address], * Lactic Acid, Plasma (03/13/2024 5:22 AM EST) Only the most recent of2 resultswithin the time period is included. Lactic Acid 1.2 0.5 - 1.9 mmol/L 03/13/2024 6:10 AM EST [facility] Comment: Sepsis Screening: Initial Lactate Level >2.0 mmol/L - Repeat Lactate Level within 3 hours. Initial Lactate Level >4.0 mmol/L - Repeat Lactate Level within 3 hours, Initiate Septic Shock Protocol. Blood Structure of peripheral vein / Unknown Venipuncture / Unknown 03/13/2024 5:22 AM EST 03/13/2024 5:29 AM EST [facility] BLOOD ORDERABLES Final Resu lt Performing Organization Address [facility] Co de Phone Number [facility] [address] [place] [address], * ECG 12 lead (03/12/2024 9:25 PM EST) Only the most recent of2 resultswithin the time period is included. Ventricular Rate EKG 82 BPM MUSE EKG Atrial Rate 82 BPM MUSE EKG OH Interval 162 ms MUSE EKG QRS Interval 86 ms MUSE EKG QT Interval 420 ms MUSE EKG QTC Interval 490 ms MUSE EKG P Reading 17 degrees MUSE EKG R Reading 37 degrees MUSE EKG T Wave Reading 34 degrees MUSE EKG 03/12/2024 9:25 PM EST 03/18/2024 10:47 AM EST Impressions [facility]USE EKG - 03/18/2024 10:47 AM EST NORMAL SINUS RHYTHM NONSPECIFIC T WAVE ABNORMALITY PROLONGED QT INCOMPLETE RIGHT BUNDLE BRANCH BLOCK WHEN COMPARED WITH ECG OF 10-FEB-2024 08:08, T WAVE INVERSION NOW EVIDENT IN ANTERIOR LEADS QT HAS LENGTHENED Confirmed by Mariola Jacobs ([id number]) on 03/18/2024 10:47:13 AM Andrew Edward DO ECG ORDERABLES Final Result Performing Organization Address City/[facility]/ZIP Co de Phone Number [facility] * (ABNORMAL) Lactic Acid, Plasma (03/12/2024 8:16 PM EST) Lactic Acid 2.4(H) 0.5 - 1.9 mmol/L 03/12/2024 8:52 PM EST [facility] Blood Structure of peripheral vein / Unknown Venipuncture / Unknown 03/12/2024 8:16 PM EST 03/12/2024 8:21 PM EST Delmy Ocampo MD LAB BLOOD ORDERABLES Final Resul t [facility] [address] [place] [address], * (ABNORMAL) Lactic Acid, Plasma (w/Reflex if >2) (03/12/2024 5:15 PM EST) Lactic Acid 2.0(H) 0.5 - 1.9 mmol/L 03/12/2024 6:10 PM EST [facility] Comment:Specimen is hemolyze d, result may be falsely increased. Blood Structure of peripheral vein / Unknown Venipuncture / Unknown 03/12/2024 5:15 PM EST 03/12/2024 5:28 PM EST Delmy Ocampo MD LAB BLOOD ORDERABLES Final Resul t [facility] [address] [place] [address], [place] * (ABNORMAL) Repeat Troponin #1 (03/12/2024 2:23 PM EST) Only the most recent of2 resultswithin the time period is included. Pathologist [facility] [place] Troponin T High Sensitivity 27(H) <=21 ng/L 03/12/2024 3:00 PM EST [facility] Comment: Hb-Wbdoithn-J level of 52 ng/L or higher at 0-hour at presentation is recommended by the ESC 0/1-hour algorithm for identifying patients at high risk for ruling in acute myocardial infarction (AMI) in the appropriate clinical context. Repeat troponin testing 1-3 hours after the initial sample may be helpful in assessing for ongoing myocardial injury. Troponin elevations can be seen in several other non-infarct conditions, and the change (delta) should be evaluated in line with the 4th [place] Definition of AMI. Troponin baseline and serial elevation for a significant delta should be interpreted with clinical presentation, history, signs and symptoms, ECG, and biomarker concentrations. For inpatient setting: Value <12ng/L is considered negative for all genders. 0-1hr: A delta change of <3 will be considered negative/flat if chest pain onset >3 hours 0-3hr: A delta change of <7 will be considered negative/flat Blood Structure of peripheral vein / Unknown Venipuncture / Unknown 03/12/2024 2:23 PM EST 03/12/2024 2:28 PM EST us Delmy Ocampo MD LAB BLOOD ORDERABLES Final Resul t [facility] [address] [place] [address], [place] * Phosphorus (03/12/2024 2:23 PM EST) Phosphorus 2.8 2.5 - 4.5 mg/dL 03/12/2024 10:22 PM EST [facility] Blood Structure of peripheral vein / Unknown Venipuncture / Unknown 03/12/2024 2:23 PM EST 03/12/2024 2:28 PM EST Andrew Edward DO LAB BLOOD ORDERABLES Final Resu lt [facility] [address] [place] [address], [place] * XR Chest Portable 1 View (03/12/2024 1:20 PM EST) Anatomical Region Laterality Modality Body Computed Radiogr aphy 03/12/2024 1:23 PM EST Impressions 03/12/2024 1:33 PM EST FINDINGS AND IMPRESSION: No gross focal consolidation, pleural effusion or pneumothorax. Hazy and streaky left basilar/retrocardiac opacities, likely representing atelectasis. Heart size and pulmonary vasculature within normal limits given technique. No acute osseous abnormality. Sternotomy wires. I, Shira Gusman, have reviewed the examination and concur with the findings as reported or so edited. Trainee: ??Belem Nguyễn If this radiology report contains a blank impression section, it is an incomplete radiology report. ??Please contact the interpreting radiologist or applicable radiology division as soon as possible to obtain the completed interpretation. ? Workstation ID: [id number] Narrative 03/12/2024 1:33 PM EST COMPARISON: X-ray 11/22/2022. Resulting Agency Comment [id number] Procedure Note Shira Gusman MD - 03/12/2024 COMPARISON: X-ray 11/22/2022. IMPRESSION: FINDINGS AND IMPRESSION: No gross focal consolidation, pleural effusion or pneumothorax. Hazy andstreaky left basilar/retrocardiac opacities, likely representingatelectasis. Heart size and pulmonary vasculature within normal limits given technique.No acute osseous abnormality. Sternotomy wires. I, Shira Gusman, have reviewed the examination and concur with thefindings as reported or so edited. Trainee: Belem Nguyễn If this radiology report contains a blank impression section, it is anincomplete radiology report. Please contact the interpreting radiologistor applicable radiology division as soon as possible to obtain thecompleted interpretation. Workstation ID: [id number] Delmy Ocamop MD IMG XR PROCEDURES Final Result * Gold Top (03/12/2024 12:50 PM EST) Only the most recent of2 resultswithin the time period is included. Extra Tube Hold for add-ons. 03/12/2024 5:05 PM EST [facility] Comment:Auto resulted. Blood Structure of peripheral vein / Unknown Venipuncture / Unknown 03/12/2024 12:50 PM EST 03/12/2024 12:59 PM EST Delmy Ocampo MD LAB BLOOD ORDERABLES Final Resul t Performing Organization Address [facility]/ZIP Co de Phone Number [facility] [address] [place] [address], * Price Top (03/12/2024 12:49 PM EST) Extra Tube Hold for add-ons. 03/12/2024 5:05 PM EST [facility] Comment:Auto resulted. Blood Structure of peripheral vein / Unknown Venipuncture / Unknown 03/12/2024 12:49 PM EST 03/12/2024 12:58 PM EST Delmy Ocampo MD LAB BLOOD ORDERABLES Final Resul t Performing Organization Address City/[facility]/ZIP Co de Phone Number [facility] [address] [place] [address], * (ABNORMAL) Smear Review (03/12/2024 12:49 PM EST) Platelet Estimate Decrease d(A) Adequate 03/12/2024 2:08 PM EST [facility] RBC Morphology Present( A) Normal, No clinically significant RBC morphology present (ICSH guidelines, 2015). 03/12/2024 2:08 PM EST [facility] Fraser Cells 2+(A) Not Present 03/12/2024 2:08 PM EST [facility] Blood Structure of peripheral vein / Unknown Venipuncture / Unknown 03/12/2024 12:49 PM EST 03/12/2024 1:00 PM EST us Delmy Ocampo MD LAB BLOOD ORDERABLES Final Resul t [facility] [address] [place] [address], * (ABNORMAL) NT-proBNP (03/12/2024 12:49 PM EST) [facility] Pro-B-Type Natriuretic Peptide 414(H) <300 pg/mL 03/12/2024 2:09 PM EST [facility] Comment: Patient Age:? Congestive Heart Failure (CHF) Risk <18 Years:?Not Established 18-49 Years:? <300 pg/mL - Normal, CHF Unlikely ?>=450 pg/mL - High Probability of CHF 50-75 Years:? <300 pg/mL - Normal, CHF Unlikely ?>=900 pg/mL - High Probability of CHF >75 Years:?<300 pg/mL - Normal, CHF Unlikely ?>=1800 pg/mL - High Probability of CHF Blood Structure of peripheral vein / Unknown Venipuncture / Unknown 03/12/2024 12:49 PM EST 03/12/2024 1:38 PM EST Delmy Ocampo MD LAB BLOOD ORDERABLES Final Resul t Performing Organization Address [facility] de Phone Number [facility] [address] [place] [address], * Lavender Top (03/12/2024 12:49 PM EST) Only the most recent of2 resultswithin the time period is included. Extra Tube Hold for add-ons. 03/12/2024 5:05 PM EST [facility] Comment:Auto resulted. Blood Structure of peripheral vein / Unknown Venipuncture / Unknown 03/12/2024 12:49 PM EST 03/12/2024 1:00 PM EST Delmy Ocampo MD LAB BLOOD ORDERABLES Final Resul t Performing Organization Address [facility] de Phone Number [facility] [address] [place] [address], * Light Green Top (03/12/2024 12:49 PM EST) Extra Tube Hold for add-ons. 03/12/2024 5:05 PM EST [facility] Comment:Auto resulted. Blood Structure of peripheral vein / Unknown Venipuncture / Unknown 03/12/2024 12:49 PM EST 03/12/2024 12:59 PM EST Delmy Ocampo MD LAB BLOOD ORDERABLES Final Resul t Performing Organization Address [facility]/ZIP Co de Phone Number [facility] [address] [place] [phone], [place] * Red Top (03/12/2024 12:49 PM EST) Extra Tube Hold for add-ons. 03/12/2024 5:05 PM EST [facility] Comment:Auto resulted. Blood Structure of peripheral vein / Unknown Venipuncture / Unknown 03/12/2024 12:49 PM EST 03/12/2024 12:58 PM EST Delmy Ocampo MD LAB BLOOD ORDERABLES Final Resul t Performing Organization Address [facility] Co de Phone Number [facility] [address] [place] [address], [place] * Light Blue Top (03/12/2024 12:49 PM EST) Extra Tube Hold for add-ons. 03/12/2024 5:05 PM EST [facility] Comment:Auto resulted. Blood Structure of peripheral vein / Unknown Venipuncture / Unknown 03/12/2024 12:49 PM EST 03/12/2024 12:58 PM EST Delmy Ocampo MD LAB BLOOD ORDERABLES Final Resul t Performing Organization Address [facility] Co de Phone Number [facility] [address] [place] [address], [place] * (ABNORMAL) POCT I-STAT Lactate W/VBG, interfaced (03/12/2024 12:40 PM EST) Sample Type, POCT Venous 03/12/2024 12:43 PM EST [facility], [facility] Lactate, POCT 3.58(H) 0.9 - 1.7 mmol/L 03/12/2024 12:43 PM EST [facility], [facility] pH, POCT 7.54(H) 7.31 - 7.41 pH 03/12/2024 12:43 PM EST [facility] pCO2, POCT 16.1(L) 41 - 51 mm Hg 03/12/2024 12:43 PM EST [facility] pO2, POCT 33(L) 35 - 40 mm Hg 03/12/2024 12:43 PM EST [facility], [facility] Base Excess, POCT -9(L) 0 - 3 mmol/L 03/12/2024 12:43 PM EST [facility] HCO3, POCT 13.7(L) 23 - 28 mmol/L 03/12/2024 12:43 PM EST [facility] TCO2, POCT 14(LL) 24 - 29 mmol/L 03/12/2024 12:43 PM EST [facility] Saturated O2, POCT 75 70 - 75 % 03/12/2024 12:43 PM EST [facility], [facility] Javon's Test, POCT N/A 03/12/2024 12:43 PM EST [facility], POC Blood 03/12/2024 12:4 0 PM EST 03/12/2024 12:43 PM EST us Delmy Ocampo MD LAB POCT ORDERABLES - DEVICE Fin al Result [facility], [facility] [address] [place] [address], [place] * XR Chest, Outside Result (03/12/2024) Anatomical Region Laterality Modality Other 03/12/2024 us Onbase Scan Christa AMB EXTERNAL RESULT PROCEDURE S Final Result * HEART & VASCULAR - SCANNED (03/12/2024) Only the most recent of2 resultswithin the time period is included. Anatomical Region Laterality Modality Other us Onbase Scan Christa SCANNED PROCEDURES Final Resu lt * CORONARY ANGIOGRAPHY, LEFT HEART CATHETERIZATION (02/10/2024 11:24 AM EST) Anatomical Region Laterality Modality Heart X-Ray Angiograph y Narrative 02/20/2024 3:06 PM EST FINDINGS: Coronary angiography Right dominant coronary system. ? Left main. ??Large, no angiographic evidence of ??narrowing. ?? Left anterior descending. Large vessel, minimal luminal irregularities. Circumflex. Very large caliber, minimal luminal irregularities. Right coronary artery. Large caliber, high anterior take off, there is minimal luminal irregularities. Left heart catheterization Left ventricular end-diastolic pressure (mmHg): 10 mmHg Aortic valve: There was no significant aortic stenosis by pullback gradient. IMPRESSIONS: No evidence of angiographically significant coronary artery disease or cardiac allograft vasculopathy. Normal left ventricular end-diastolic pressure. RECOMMENDATIONS: Planned same-day discharge after recovery in 2SS. ??Follow-up with the referring physician. Further management as per the Cardiology team. Continue cardiovascular medications. Vascular access and post-cardiovascular catheterization care per protocol. Procedure Details The risks and alternatives of the procedures and conscious sedation were explained to the patient and informed consent was obtained. The patient was brought to the distillery laborer and placed on the table. The planned puncture sites were prepped and draped in the usual sterile fashion and a time-out was performed. Right radial artery access. The puncture site was infiltrated with 1% lidocaine. The vessel was accessed using the ultrasound-guided and micropuncture-assisted modified Seldinger technique, a wire was threaded into the vessel, and a 6 Fr sheath was advanced over the wire into the vessel. Right coronary artery angiography. A JR 4 catheter was advanced to the aorta and positioned in the vessel ostium under fluoroscopic guidance. Angiography was performed in multiple projections using hand-injection of contrast. Left coronary artery angiography. A JL 3.5 catheter was advanced to the aorta and positioned in the vessel ostium under fluoroscopic guidance. Angiography was performed in multiple projections using hand-injection of contrast. Left heart catheterization. A JR4 catheter was advanced across the aortic valve and left ventricular pressures were recorded. Hemostasis with TR Band. The attending physician performed the procedure and interpreted the results. Please refer to the Procedural Log for details. Coronary Findings Diagnostic Dominance: Right Left Main: The vessel was visualized by angiography, is large in size and is angiographically normal. Left Anterior Descending: The vessel was visualized by angiography and is large in size. The vessel exhibits minimal luminal irregularities. Left Circumflex: The vessel was visualized by angiography and is large in size. The vessel exhibits minimal luminal irregularities. Right Coronary Artery: The vessel was visualized by angiography and is large in size. The vessel exhibits minimal luminal irregularities. Intervention No interventions have been documented. Imaging Guidance Imaging guidance used for procedure: fluoroscopy and ultrasound. Ultrasound was used for evaluation of the access site, to confirm selected vessel patency, and for concurrent real-time ultrasound visualization of vascular needle entry. Images were stored in the permanent record. History Wagner Quintanilla is a 68 y.o. 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 He is followed in clinic by Dr Rothman and recently had his yearly nuclear stress test showing a mild, partially reversible defect in the inferior wall. This is a new finding when compared to all of his previous stress tests for which he was referred for coronary angiography +/- PCI. Dayami Carr NP CV CARDIAC CATH PROCEDURES Final Result * POCT I-STAT Activated Clotting Time, interfaced (02/10/2024 11:12 AM EST) Sample Type, POCT Arterial 02/10/2024 11:13 AM EST [facility], [facility] ACT Average, POCT 187 See Comment Seconds 02/10/2024 11:13 AM EST [facility] Comment: Therapeutic Range: Baseline: 75-127 Cardiac Catherization Lab: 200-300 EP Lab: 200-400 Perfusion and OR - Cardiac Surgery: 450 Valve replacement: 480 Blood 02/10/2024 11:1 2 AM EST 02/10/2024 11:13 AM EST us Jerrell Camarillo MD LAB POCT ORDERABLES - DEVICE F inal Result [facility], [facility] [address] [place] [address], * (ABNORMAL) CBC (01/26/2024 1:44 PM EST) White Blood Cell Count 5.9 3.8 - 10.8 Thousand/ uL 01/27/2024 12:04 AM EST [facility] Red Blood Cell Count 5.23 4.20 - 5.80 Million/u L 01/27/2024 12:04 AM EST [facility] Hemoglobin 15.7 13.2 - 17.1 g/dL 01/27/2024 12:04 AM EST [facility] Hematocrit 47.6 38.5 - 50.0 % 01/27/2024 12:04 AM EST [facility] MCV 91.0 80.0 - 100.0 fL 01/27/2024 12:04 AM EST [facility] MCH 30.0 27.0 - 33.0 pg 01/27/2024 12:04 AM EST [facility] MCHC 33.0 32.0 - 36.0 g/dL 01/27/2024 12:04 AM EST [facility] Comment: For adults, a slight decrease in the calculated MCHC value (in the range of 30 to 32 g/dL) is most likely not clinically significant; however, it should be interpreted with caution in correlation with other red cell parameters and the patient's clinical condition. RDW 13.1 11.0 - 15.0 % 01/27/2024 12:04 AM EST [facility] Platelet Count 127(L) 140 - 400 Thousand/ uL 01/27/2024 12:04 AM EST [facility] MPV 11.1 7.5 - 12.5 fL 01/27/2024 12:04 AM [facility] Blood Structure of peripheral vein / Unknown 01/26/2024 1:44 PM EST 01/26/2024 10:54 PM EST Narrative [facility] - 01/27/2024 12:08 AM EST FASTING:NO Renata Cristina NP LAB BLOOD ORDERABLES Final Result [facility] [address] [facility] 3rd Floor, [place] [address], [place] [phone] [facility] [address] [place] [address] * Basic metabolic panel (01/26/2024 1:44 PM EST) [facility] Glucose 120 65 - 139 mg/dL 01/27/2024 12:06 AM [facility] Comment: ? Non-fasting reference interval BUN 24 7 - 25 mg/dL 01/27/2024 12:06 AM [facility] Creatinine 1.26 0.70 - 1.35 mg/dL 01/27/2024 12:06 AM [facility] eGFR 63 > OR = 60 mL/min/1. 73m2 01/27/2024 12:06 AM [facility] Bun/Creatinine Ratio SEE NOTE: (calc) 01/27/2024 12:06 AM [facility] Comment: ?? Not Reported: BUN and Creatinine are within ?? reference range. ? Sodium 143 135 - 146 mmol/L 01/27/2024 12:06 AM [facility] Potassium 4.3 3.5 - 5.3 mmol/L 01/27/2024 12:06 AM [facility] Chloride 105 98 - 110 mmol/L 01/27/2024 12:06 AM [facility] Carbon Dioxide 31 20 - 32 mmol/L 01/27/2024 12:06 AM [facility] Calcium 9.0 8.6 - 10.3 mg/dL 01/27/2024 12:06 AM [facility] Blood Structure of peripheral vein / Unknown 01/26/2024 1:44 PM EST 01/26/2024 10:56 PM EST Narrative [facility] - 01/27/2024 12:08 AM EST FASTING:NO Renata Cristina NP LAB BLOOD ORDERABLES Final Result [facility] [address] [facility] [address], [place] [address], [place] [phone] [facility] [address] [place] [address] * Vitamin D, 25-Hydroxy, Total, Immunoassay (07/24/2020 11:27 AM EDT) Calcidiol+ercalc idiol 32 30 - 100 ng/mL 07/24/2020 8:52 PM EDT [facility] Comment: Vitamin D Status ? 25-OH Vitamin D: Deficiency: ?<20 ng/mL Insufficiency: ? 20 - 29 ng/mL Optimal: ? > or = 30 ng/mL For 25-OH Vitamin D testing on patients on D2-supplementation and patients for whom quantitation of D2 and D3 fractions is required, the QuestAssureD(TM) 25-OH VIT D, (D2,D3), LC/MS/MS is recommended: order code 72017 (patients >2yrs). See Note 1 Note 1 For additional information, please refer to http://education.AlphaBoost/faq/ATK376 (This link is being provided for informational/ educational purposes only.) Blood Structure of peripheral vein / Unknown Venipuncture / Unknown 07/24/2020 11:27 AM EDT 07/24/2020 11:53 AM EDT Narrative [facility] - 07/24/2020 8:52 PM EDT [facility] Received Date: Kamran Jones MD LAB BLOOD ORDERABLES Final R esult [facility] [address] [facility] 3rd Floor, [place] [address], [place] [phone] [facility] [address] [facility] [address], [place] [address], [place] [phone] * (ABNORMAL) PTH, Intact (without Calcium) (07/24/2020 11:27 AM EDT) Parathyroid Hormone, Intact 115(H) 14 - 64 pg/mL 07/25/2020 10:44 AM EDT [facility] Comment: Interpretive Guide ?Intact PTH ? Calcium ? ------- Normal Parathyroid ?Normal ? Normal Hypoparathyroidism ?Low or Low Normal ?Low Hyperparathyroidism ?? Primary ?Normal or High ? High ?? Secondary ?High ? Normal or Low ?? Tertiary ? High ? High Non-Parathyroid ?? Hypercalcemia ?Low or Low Normal ?High Blood Structure of peripheral vein / Unknown Venipuncture / Unknown 07/24/2020 11:27 AM EDT 07/24/2020 11:53 AM EDT Narrative [facility] - 07/25/2020 10:44 AM EDT [facility] Received Date: Kamran Jones MD LAB BLOOD ORDERABLES Final R esult [facility] [address] [facility] 3rd Floor, [place] [address], [facility] [address] [facility] [address], [place] [address], * Hepatitis C Antibody w/Reflex to HCV RNA, Quantitative PCR (10/03/2015 10:44 AM EDT) Hepatitis C Antibody NON-REACTI VE NON-REACT [facility] Signal To Cut-Off 0.02 <1.00 [facility] 10/03/2015 10:4 4 AM EDT 10/03/2015 11:46 AM EDT us Stanislav Rothman MD LAB BLOOD ORDERABLES Final Re sult [facility] [address] [facility] [address] Floor, [address] [place] [address], [place] from Last 3 Months or Most Recently Relevant to Health Maintenance Additional Health Concerns Infection Onset Date Last Indicated COVID-19 - Confirmed infection 03/12/2024 0 03/12/2024 Insurance MEDICARE [facility] Advance Directives Documents on File Type Date Recorded Patient Printing Table Hand Expl anation Health Care Proxy 10/05/2011 12:00 AM 10/04 * DNR/DNI (with non-invasive ventilation only) (Latest Code Status on File) Date Activated Date Inactivated Comments 03/12/2024 8:41 PM 03/16/2024 5:32 PM * Presumed Full Code Date Activated Date Inactivated Comments 03/12/2024 8:09 PM 03/12/2024 8:41 PM * Full Code Date Activated Date Inactivated Comments 02/10/2024 8:03 AM 02/10/2024 5:08 PM Care Teams Mother Baby Rn Relationship Specialty Start Date End Date Patient, Has No Pcp Or Ref DO NOT EDIT THIS RECORD VIA PROVIDER ON THE FLY PCP - General Maintenance Apprentice 09/26/23
--- OUTSIDE RECORDS SUMMARY | 2024-03-29 15:48 | XMS_ITS ---
Author Organization [facility] Address [address] [facility] [address] [place] [address] Care Team Providers Care Senior Quantity Surveyor Name Role Phone Unavailable Primary Care Provider Unavailabl e Transplant Episode Heart Recipient [facility] ([place], [place]) - [facility] Organ Received: Heart Transplanted on 10/19/2003 Marked as Active Follow-up on 10/19/2003 Heart CoordinatorEly Perera RN Phone: N/A Fax: N/A Email: N/A [place] Organ Diagnosis Organ Primary Contributory Heart Dilated Myopathy: Idiopathic Donor Information Organ ABO Source Meets Risk Criteria HLA Match Mismatches Cross Match Heart Transplanted O DBD No A: B: DR: Heart Donor Serology Results Anti-CMV CMV IgG: Positive HBsAg HBsAg: Negative Anti-HBcAb HBC Total: Positive HBsAb No results on file HBV DNA No results on file Anti-HCV HCV: Negative Anti-HIV I/II HIV-1: Negative Anti-HTLV I/II HTLV: Negative RPR/VDRL RPR: Negative EBV IgG No results on file EBV IgM No results on file EBNA No results on file Toxoplasma No results on file SARS CoV-2 No results on file Care Team Name Role Phone Fax Email Ely Perera RN Painter And Body Mechanic Apprentice N/A N/A N/A Events Post-Transplant Pre-Transplant Admitted: 08/02/2003 UNOS activated: 08/30/2000 Transplanted: 10/19/2003 Center waitlisted: 07/21/19 02 Discharged: 11/09/2003
--- OUTSIDE RECORDS SUMMARY | 2024-03-29 15:48 | XMS_ITS | Clinical Summary ---
Author Organization [facility] Address [address] [facility] [address] [place] [address] Care Team Providers Care Snack Bar Attendant Name Role Phone Unavailable Primary Care Provider Unavailabl e Social History Tobacco Use Types Packs/Day Years Used Date Smoking Tobacco: Never Assessed Sex and Gender Information Value Date Recorded Sex Assigned at Not on file Gender Identity Not on file Sexual Orientation Not on file Plan of Treatment Not on file
--- OUTSIDE RECORDS SUMMARY | 2024-03-29 15:49 | XMS_ITS | Encounter Summary ---
Author Organization [facility] Address [address] [place] [address] Care Team Providers Care Mechanical Cad Designer Name Role Phone Patient, Has No Pcp Or Ref Primary Care Provider Unavailable Encounter Details Date Type Department Care Team (Late st Contact Info) Description 11/20/2020 Orders Only [facility] Nuclear Medicine [address] [place] [address] Kahlil Benavides MD PhD [address] [place] [address] Social History Tobacco Use Types Packs/Day Years Used Date Smoking Tobacco: Never Smokeless Tobacco: Never Comments:: Alcohol Use Standard Drinks/Week Comments No 0 (1 standard drink = 0.6 oz pur e alcohol) Sex and Gender Information Value Date Recorded Sex Assigned at Male 02/12/2020 11:42 AM EST Legal Sex Male 9:16 AM EDT Gender Identity Male 02/12/2020 11:42 AM EST Sexual Orientation Straight 02/12/2020 11 :42 AM EST documented as of this encounter Plan of Treatment Upcoming Encounters Date Type Department Care Team (Late st Contact Info) Description 04/24/2024 1:00 PM EST Follow-Up [facility] 4th floor Cardiology Medicine [address] [place] [phone] Pear Picker: Mariah Matt 05/24/2024 10:30 AM EDT Follow-Up [address] floor Cardiology Medicine [address] [place] [address] [phone] Pear Picker: Mariah Matt 06/25/2024 1:15 PM EDT Follow-Up [facility] 4th Floor [address] [facility], [place] [phone] Pear Picker: Diane Sofia PA [address] [place] [address] documented as of this encounter Visit Diagnoses Not on filedocumented in this encounter Additional Health Concerns Infection Onset Date Last Indicated Resolved Time COVID-19 - Confirmed infection 03/12/2024 03/12/2024 documented as of this encounter Care Teams Mechanical Cad Designer Relationship Specialty Start Date End Date Patient, Has No Pcp Or Ref DO NOT EDIT THIS RECORD VIA PROVIDER ON THE FLY PCP - General Trade Recruiter 09/26/23 documented as of this encounter
--- OUTSIDE RECORDS SUMMARY | 2024-03-29 15:49 | XMS_ITS | Encounter Summary ---
Author Organization [facility] Address [address] [facility] [address] [place] [address] Phone Care Team Providers Care Test Bore Helper Name Role Phone Neftaly Hoover MD Primary Care Provider [phone] Encounter Details Date Type Department Care Team (Late Contact Info) Description 05/28/2020 Orders Only [facility] [address] [facility] [address] [place] [address] Provider, MD Walter [address] [place] [address] Social History Tobacco Use Types Packs/Day Years Used Date Smoking Tobacco: Never Sex and Gender Information Value Date Recorded Sex Assigned at Not on file Legal Sex Male 4:58 PM EST Gender Identity Not on file Sexual Orientation Not on file documented as of this encounter Plan of Treatment Upcoming Encounters Date Type Department Care Team (Late st Contact Info) Description 05/21/2024 1:45 PM EDT Office Visit [facility] [address] [place] [phone] Neftaly Hoover MD [address] [facility] [address] [place] [phone] documented as of this encounter Procedures Procedure Name Priority Date/Time Associated Diagnosis Comments EXT RESULT ENTRY Routine 05/28/2020 documented in this encounter Results * EXT RESULT ENTRY (05/28/2020) Historical Provider LAB BLOOD ORDERABLES Andra l Result documented in this encounter Visit Diagnoses Not on filedocumented in this encounter Care Teams Test Bore Helper Relationship Specialty Start Date End Date Neftaly Hoover MD [address] [phone] PCP - General Nephrology 07/25/23 documented as of this encounter
--- OUTSIDE RECORDS SUMMARY | 2024-03-29 15:49 | XMS_ITS | Encounter Summary ---
Author Organization [facility] Address [address] [place] [address] Care Team Providers Care Insulation Worker Apprentice Name Role Phone Patient, Has No Pcp Or Ref Primary Care Provider Unavailable Encounter Details Date Type Department Care Team (Late st Contact Info) Description 07/21/2023 Orders Only [facility] Nuclear Medicine [address] [place] [address] Nino Gautam MD [address] [place] [address] Social History Tobacco Use Types Packs/Day Years [...] Info) Description 04/24/2024 1:00 PM EST Follow-Up [facility] 4th floor Cardiology Medicine [address] [place] [phone] Barista: Mariah aMtt 05/24/2024 10:30 AM EDT Follow-Up [address] floor Cardiology Medicine [address] [place] [phone] Barista: Mariah Matt 06/25/2024 1:15 PM EDT Follow-Up [facility] 4th Floor [address] [facility], [place] [phone] Barista: Diane Sofia PA [address] [place] [address] documented as of this encounter Visit Diagnoses Not on filedocumented in this encounter Additional Health Concerns Infection Onset Date Last Indicated Resolved Time COVID-19 - Confirmed infection 03/12/2024 03/12/2024 documented as of this encounter Care Teams Insulation Worker Apprentice Relationship Specialty Start Date End Date Patient, Has No Pcp Or Ref DO NOT EDIT THIS RECORD VIA PROVIDER ON THE FLY PCP - General Mold Changer 09/26/23 documented as of this encounter
--- OUTSIDE RECORDS SUMMARY | 2024-03-29 15:49 | XMS_ITS | Encounter Summary ---
Author Organization [facility] Address [address] [place] [address] Care Team Providers Care Laborer Poultry Hatchery Name Role Phone Patient, Has No Pcp Or Ref Primary Care Provider Unavailable Encounter Details Date Type Department Care Team (Late st Contact Info) Description 11/20/2022 Orders Only [facility] Nuclear Medicine [address] [place] [address] Nino Gautam MD [address] [place] [address] Social History Tobacco Use Types Packs/Day Years [...] Info) Description 04/24/2024 1:00 PM EST Follow-Up [facility] 4th floor Cardiology Medicine [address] [place] [address] Visual And Stock Associate: Mairah Matt 05/24/2024 10:30 AM EDT Follow-Up [address] floor Cardiology Medicine [address] [place] [address] Visual And Stock Associate: Mariah aMtt 06/25/2024 1:15 PM EDT Follow-Up [facility] 4th Floor [address] [facility], [place] [phone] Visual And Stock Associate: Diane Sofia PA [address] [place] [address] documented as of this encounter Visit Diagnoses Not on filedocumented in this encounter Additional Health Concerns Infection Onset Date Last Indicated Resolved Time COVID-19 - Confirmed infection 03/12/2024 03/12/2024 documented as of this encounter Care Teams Laborer Poultry Hatchery Relationship Specialty Start Date End Date Patient, Has No Pcp Or Ref DO NOT EDIT THIS RECORD VIA PROVIDER ON THE FLY PCP - General Vault Custodian 09/26/23 documented as of this encounter
--- OUTSIDE RECORDS SUMMARY | 2024-03-29 15:49 | XMS_ITS | Encounter Summary ---
Author Organization [facility] Address [address] [facility] [address] [place] [address] Phone Care Team Providers Care Chute Worker Name Role Phone Neftaly Hoover MD Primary Care Provider [phone] Encounter Details Date Type Department Care Team (Late st Contact Info) Description 03/20/2024 Telephone [facility] [address] [facility] [address] [place] [address] Chester Cid MD [facility] [address] [phone] Social History Tobacco Use Types Packs/Day Years Used Date Smoking Tobacco: Never Smokeless Tobacco: Never Alcohol Use Standard Drinks/Week Comments Not Currently 0 (1 standard drink = 0.6 oz pure alcohol) Alcoholic Drinks/day: Occasional social drink Sex and Gender Information Value Date Recorded Sex Assigned at Not on file Legal Sex Male 4:58 PM EST Gender Identity Not on file Sexual Orientation Not on file documented as of this encounter Miscellaneous Notes * Telephone Encounter - Arnav Mcgarry - 03/20/2024 10:51 AM EST Left a vm . Waiting on pt to call back * Telephone Encounter - Chester Cid MD - 03/20/2024 10:36 AM EST His dc creatinine was 1.64- 03/16/23 Will need rpt in 1 week - 03/23/23- bmp ordered, if cr improved Can resume losartan -pls have him draw labs this week documented in this encounter Plan of Treatment Upcoming Encounters Date Type Department Care Team (Late st Contact Info) Description 05/21/2024 1:45 PM EDT Office Visit [facility] [address] [place] [address] [place] [phone] Neftaly Hoover MD [address] [phone] Scheduled Orders Name Type Priority Associated Diagnoses Orde r Schedule Basic Metabolic Panel Lab Routine Heart transplant status (HCC) Stage 3a chronic kidney disease (HCC) Other acute kidney failure (HCC) Expected: 03/20/2024, Expires: 04/20/2025 documented as of this encounter Visit Diagnoses Diagnosis Heart transplant status (HCC)- Primary Stage 3a chronic kidney disease (HCC) Other acute kidney failure (HCC) documented in this encounter Care Teams Chute Worker Relationship Specialty Start Date End Date Neftaly Hoover MD [address] [phone] PCP - General Nephrology 07/25/23 documented as of this encounter
--- OUTSIDE RECORDS SUMMARY | 2024-03-29 15:49 | XMS_ITS | Encounter Summary ---
Author Organization [facility] Address [address] [place] [address] Care Team Providers Care Flap Maker Name Role Phone Patient, Has No Pcp Or Ref Primary Care Provider Unavailable Reason for Visit * Reason Comments Med Refill Encounter Details Date Type Department Care Team (Late st Contact Info) Description 03/21/[address] floor Cardiology Medicine [address] [place] [id number] Brick Unloader Tender: Stanislav Price MD [address] [place] [phone] Social History Tobacco Use Types Packs/Day Years [...] Info) Description 04/24/2024 1:00 PM EST Follow-Up [address] Cardiology Medicine [address] [place] [address] [id number] Brick Unloader Tender: Mariah Matt 05/24/2024 10:30 AM EDT Follow-Up [address] floor Cardiology Medicine [address] [place] [address] [id number] Brick Unloader Tender: Mariah Matt 06/25/2024 1:15 PM EDT Follow-Up [facility] 4th Floor [address] [facility], [place] [id number] Brick Unloader Tender: Diane Sofia PA [address] [place] [id number] documented as of this encounter Visit Diagnoses Not on filedocumented in this encounter Additional Health Concerns Infection Onset Date Last Indicated Resolved Time COVID-19 - Confirmed infection 03/12/2024 03/12/2024 documented as of this encounter Care Teams Flap Maker Relationship Specialty Start Date End Date Patient, Has No Pcp Or Ref DO NOT EDIT THIS RECORD VIA PROVIDER ON THE FLY PCP - General Tobacco Warehouse Agent 09/26/23 documented as of this encounter
--- OUTSIDE RECORDS SUMMARY | 2024-03-29 15:49 | XMS_ITS | Encounter Summary ---
Author Organization [facility] Address [address] [place] [address] Care Team Providers Care Typing Bookkeeper Name Role Phone Patient, Has No Pcp Or Ref Primary Care Provider Unavailable Reason for Visit * Reason Comments SOB Encounter Details Date Type Department Care Team (Late st Contact Info) Description 03/12/2024 12:37 PM EST - 03/16/2024 3:25 PM EST Hospital Encounter [facility] Emergency Department [address] [place] [address] Delmy Ocampo MD [address] [place] [address] Fernie Teixeira MD [address] [place] [phone] Andrew Edward DO [address] [place] [phone] Rico Landa MD [address] [place] [address] COVID-19 (Primary Dx); Other hyperlipidemia; COVID Discharge Disposition: Home or Self Care () Social History Tobacco Use Types Packs/Day Years [...] AM EST documented as of this encounter Last Filed Vital Signs Vital Sign Reading [...] Mass Index 26.54 03/12/2024 12:42 PM EST documented in this encounter Discharge Summaries * Joseph Angela MD - 03/16/2024 7:27 AM EST Images from the original note were not included. DISCHARGE SUMMARY [facility] DISCHARGE INFORMATION: Date and Time of Admission: 03/12/2024 8:09 PM Date of Discharge: 03/16/24 DISCHARGE DIAGNOSIS: Problem List Active Problems * (Principal) COVID Acute kidney injury superimposed on CKD (HCC) Dyslipidemia Essential hypertension Gastroesophageal reflux disease without esophagitis Heart replaced by transplant (HCC) Sarcoidosis Subclinical hypothyroidism Resolved Problems RESOLVED: Lactic acidosis ATTENDING PHYSICIAN ON DISCHARGE: Attending Provider: Rico Landa MD [phone] FOLLOW-UPS AND SCHEDULED APPOINTMENTS: Future Appointments Date Time Provider Department Center 04/24/2024 1:00 PM [facility]INIC[facility] [place] 05/24/2024 10:30 AM CLINIC[facility] [place] 06/25/2024 1:15 PM ANDREA Bower [facility] 4 [facility] PENDING LABS: . Ordered CBC W/ AUTO DIFFERENTIAL 03/12/242049 DISCHARGE MEDICATIONS: Discharge Medication list: Discharge Medications Medications To Continue Sig Disp Refill amLODIPine 2.5 mg tablet Commonly known as: NORVASC Take 1 tablet (2.5 mg total) by mouth once a day. 90 tablet 3 amoxicillin 500 mg capsule Commonly known as: AMOXIL Take 4 capsules (2,000 mg total) by mouth daily. 1 HOUR PRIOR TO DENTAL APPOINTMENT 16 capsule 4 aspirin 81 mg EC tablet 81 mg daily. 0 atorvastatin 40 mg tablet Commonly known as: LIPITOR Take 1 tablet (40 mg total) by mouth daily. 90 tablet 3 calcium carbonate-vitamin D3 600 mg-10 mcg (400 unit) per tablet Take 1 tablet by mouth once a day. 90 tablet 3 ciclopirox 8 % solution Commonly known as: PENLAC Apply over nail and surrounding skin. Apply daily over previous coat. After seven (7) days, may remove with alcohol and continue cycle. 6.6 mL 3 citalopram 20 mg tablet Commonly known as: CeleXA Take 1 tablet (20 mg total) by mouth daily. 90 tablet 3 ferrous sulfate 325 mg (65 mg iron) tablet Take 1 tablet every other day 60 tablet 11 multivitamin no.44-vit D3-K 1,000-800 unit-mcg capsule Multivitamins CAPS 1TAB Qday, Refills: 0 Started -Mar-2008 Active 0 mycophenolate 500 mg tablet Commonly known as: CELLCEPT Take 1 tablet (500 mg total) by mouth 2 times a day. 180 tablet 3 NeoraL 25 mg capsule Generic drug: cycloSPORINE modified Take 3 capsules (75 mg total) by mouth 2 times a day. [address] 40 mg tablet Commonly known as: PROTONIX Take 1 tablet (40 mg total) by mouth once a day. 90 tablet 3 predniSONE 5 mg tablet Commonly known as: DELTASONE Take 1 tablet (5 mg total) by mouth daily. 90 tablet 3 Stopped Medications losartan 100 mg tablet Commonly known as: COZAAR ALLERGIES: Spironolactone IMMUNIZATION HISTORY: Most Recent Immunizations Administered Date(s) Administered Covid-19, Pfizer, mRNA, Monovalent, PF 30 mcg/0.3 mL dose (for ages 12 and older) 02/27/2021 PRESENTATION INFORMATION: HISTORY OF PRESENT ILLNESS: Mr. Quintanilla is a 68-year-old male past medical history of pulmonary sarcoid, heart failure status post heart transplant in 2003 as well as AICD and pacemaker, prior cerebrovascular accident, chronic kidney disease, hypertension, hyperlipidemia [facility] as well as increased oxygen requirement with initial reported requirement of high flow nasal cannula.He was seen and evaluated bedside able to follow commands answer questions and provide some history. He said over the past couple of days he is feeling incredibly short of breath and just overall tired; he initially presented to [place] and was found to be grossly COVID positive. He was then placed on nasal cannula and is noted to have increased work of breathing so was placed on high flow. Cath was attempted to be weaned down multiple times at facility but was unable to the patient was transferred over to [facility] for evaluation by pulmonology as well as cardiology. Initial vitals demonstrated blood pressure of 123/82, pulse of 84, respiratory rate of 30, temperature of 90 point degrees Fahrenheit and saturation 100% on high flow. Initial labs demonstrated sodium of 140, potassium 3.5, CO2 of 15, anion gap of 20, BUN of 37, creatinine of 2.18, white count 3.4,hemoglobin of 14.9, platelet count of 112; high-sensitivity troponin of 28 and 27; proBNP of 414, lactic acid of 4.0 improved up to 2.0. Initial chest x-ray showed no gross focal consolidation pleural effusion or pneumothorax; hazy and streaky left basilar/retrocardiac opacities, likely representing atelectasis. Patient was noted to not be tachypneic and had no evidence of respiratory distress and no tachycardia with normal mentation was able to be taken off of high flow nasal cannula at 1650 over to 6 L before being transitioned down to 2 L currently. Cardiology was initially contacted in emergency department did not believe that the patient would benefit from their service but they will continue to monitor on their end. 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) History of Combined congestive systolic and diastolic heart failure 2008-10-16 PAST SURGICAL HISTORY: Past Surgical History: Procedure Laterality Date CARDIAC CATHETERIZATION N/A 02/10/2024 Procedure: Coronary angiography; Surgeon: Jerrell Camarillo MD; Location: [facility]; Service: Invasive Cardiology CARDIAC CATHETERIZATION N/A 02/10/2024 Procedure: Left heart cath; Surgeon: Jerrell Camarillo MD; Location: [facility]; Service:Invasive Cardiology MO LAP, VENTRAL HERNIA REPAIR,REDUCIBLE N/A History of Laparoscopy Repair Of Ventral Hernia recurrent MO REMOVAL OF SPERM DUCT(S) N/A History of Surgery Of Male Genitalia Vasectomy MO REPAIR INCISIONAL HERNIA,REDUCIBLE N/A History of Ventral Hernia Repair Twice - 2006 and 2008 MO RIGHT HEART CATH O2 SATURATION & CARDIAC OUTPUT N/A History of Interventional Cardiac Catheterization MO RIGHT HEART CATH O2 SATURATION & CARDIAC OUTPUT N/A History of Interventional Cardiac Catheterization PROCEDURE - HISTORIC N/A History of Pacemaker Placement PROCEDURE - HISTORIC N/A History of Implantable Cardioverter-Defibrillator PROCEDURE - HISTORIC N/A History of Ventricular Assist Device PROCEDURE - HISTORIC N/A History of Cardiac Transplant Procedures PAST FAMILY HISTORY: Family History Problem Relation Age of Onset Other Other Denied Family history of Thyroid Disorder Other Other Denied Family history of Diabetes Mellitus Other Other Denied Family history of Hip Fracture Other Other Denied Family history of Osteoporosis Other Other Family history of Brain Cancer Daughter Other Other Family history of Lung Cancer Maternal Aunt - smoker Other Other Family history of Coronary Artery Disease Father had CABG Other Other Denied Family history of Stroke Syndrome Other Other Denied Family history of Sarcoidosis Other Mother Family History of malignant neoplasm PAST SOCIAL HISTORY: Social History Socioeconomic History Marital status: Single Spouse name: Not on file Number of children: Not on file Years of education: Not on file Highest education level: Not on file Occupational History Not on file Tobacco Use Smoking status: Never Smokeless tobacco: Never Tobacco comments: : Substance and Sexual Activity Alcohol use: No Drug use: No Sexual activity: Not on file Other Topics Concern Not on file Social History Narrative Occupation: Disabled Printer for medical [employer] Marital History - Four daughters (One passed from a brain tumor), 4 granddaughters ([phone]) Recovering Alcoholic Quit 1995 HOSPITAL COURSE: Hospital Summary 68-year-old male with history of sarcoidosis, heart failure with a heart transplant in 2003 at [facility] who is on immune suppression, CVA, defibrillator and pacer in place who is being sent over from [facility] for increasing oxygen requirement. Sent from [facility] for hypoxia with COVID+, tachypneic to the 35s on HFNC, weaned to NC in ED following nebulizer treatments, saturating well. Started on remdesivir and dexamethasone. CXR normal. Patient started on abx for pna however discontinued given rapid improvement in symptoms and no evidence of bacterial pna. Patient also evaluated by transplant infectious disease who recommended continuing covid treatment (remdesivir, dexamethasone while admitted) and continuation of immunosuppressants for heart transplant. Patient also evaluated by cardiology who recommended continued outpatient followup, no acute interventions. Transition of Care - complete remdesivir x5 days - resume home prednisone on discharge, continue all other immunosupp - follow-up with cardiology, PCP on discharge. COVID Patient has a history of heart failure requiring transplantation 20 years ago and is presenting to hospital from [place] secondary to hypoxic respiratory failure initially requiring [...] streaky left basilar/retrocardiac opacities, likely representing atelectasis; Heartsize and pulmonary vasculature within normal limits given [...] facility. - Transplant Infectious Disease consulted - COVID pna treatment, remdesivir x5 days - dexamethasone while admitted, switch back to home prednisone on discharge - discontinue antibiotics - Received 1x ceftriaxone and doxycycline -Sputum culture On Discharge - remdesivir x5 days (day 1 03/12/24) - resume home prednisone Essential hypertension - held home amlodipine in setting of lactic acidosis - held home losartan due to acute kidney injury On Discharge - resume home amlodipine - Hold home losartan - Recheck BMP and blood pressure in 1 week and consider restarting losartan if indicated per PCP Heart replaced by transplant (HCC) 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 Patient is chronically on mycophenolate mofetil, and cyclosporine as well as prednisone 5 mg daily. Patient has been seen by Pulmonology in 2021 with pulmonary function testing at the timeshowing a mild obstructive defect but is not [...] twice daily, cyclosporine 75 mg twice daily -Transitioned home prednisone 5 mg daily to dexamethasone 6 mg daily x 7-day course in the setting of active COVID infection On Discharge -Continue home mycophenolate mofetil 500 mg twice daily, cyclosporine 75 mg twice daily, prednisone5 mg daily Subclinical hypothyroidism Last reported TSH of 1.086 2 years ago. 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 Patient has been seen by Pulmonology in 2021 with pulmonary function testing at the timeshowing a mild obstructive defect but is not currently on any inhalers On Discharge - follow up with cardiology outpt Dyslipidemia - Continue home atorvastatin 40 mg daily On Discharge - continue home meds Acute kidney injury superimposed on CKD (HCC) Patient has a history of chronic kidney disease and follows with Nephrology in the outpatient setting. Patient's baseline creatinine of 1.2-1.4; current creatinine of 2.18. Patient's troponins were trending flat and proBNP of slightly greater than 400. - Holding home losartan - urine electrolytes - Holding off on further fluids with heart failure history - Transplant nephrology consulted - Monitor BMP daily On Discharge - follow up with PCP Gastroesophageal reflux disease without esophagitis - Continue home pantoprazole 40 mg daily On Discharge - continue home meds Lactic acidosis RESOLVED Was noted emergency department to have initial lactic acid of 4.2 which improved to 2.0 with antibiotics and fluids. Patient was given stacked nebulizers in emergency department and at the moment demonstrates no signs of sepsis apart from a very slight leukopenia. -lactic acid resolved DISCHARGE DAY INFORMATION: DISCHARGE PHYSICAL EXAM: Vital signs: Blood pressure 132/88, pulse 78, temperature 36.8 ??C (98.2 ??F), temperature source Oral, resp. rate 18, height 1.778 m (5' 10 ), weight 83.9 kg (185 lb), SpO2 99%. GENERAL: In no acute distress. Appears of appropriate age. HEAD: Atraumatic, normal cephalic EYES: PERRLA, EOMI, scleral anicteric, conjunctiva normal THROAT: supple, full ROM, no thyromegaly NECK: No jugular venous distention. CARDIOVASCULAR: Regular rate and rhythm with normal S1 and S2. No S3 or S4. No murmurs, rubs, gallops PULMONARY: Clear breath sounds bilaterally on auscultation. No tachypnea or respiratory distress. No wheezing. ABDOMINAL: Soft, non-tender in all quadrants, non-distended, with normoactive bowel sounds. EXTREMITIES: Warm and well perfused. PSYCHIATRIC: Calm, no agitation. NEUROLOGIC: Alert and oriented SKIN: No jaundice. No pallor. LAB AND RADIOLOGY: LABS: Pertinent labs include Recent Results (from the past 48 hours) CBC Auto Differential Collection Time: 03/15/24 5:53 AM Specimen: Venous, Peripheral; Blood Result Value Ref Range WBC 4.6 3.8 - 10.8 10*3/uL RBC 5.23 4.20 - 5.80 10*6/uL Hemoglobin 15.0 13.2 - 17.1 g/dL Hematocrit 46.4 38.5 - 50.0 % MCV 88.7 80.0 - 100.0 fL MCH 28.7 27.0 - 33.0 pg MCHC 32.3 32.0 - 36.0 g/dL RDW 12.9 11.0 - 15.0 % Platelets 105 (L) 140 - 400 10*3/uL MPV 10.9 7.5 - 12.5 fL Neutrophil % 73.5 % Immature Grans % 0.4 0.0 - 0.9 % Lymphocyte % 17.4 % Monocyte % 8.7 % Eosinophil % 0.0 % Basophil % 0.0 % Neutrophil # 3.39 1.50 - 7.80 10*3/uL Immature Grans # <0.03 <=0.03 10*3/uL Lymphocyte # 0.80 (L) 0.85 - 3.90 10*3/uL Monocyte # 0.40 0.20 - 0.95 10*3/uL Eosinophil # <0.03 0.02 - 0.50 10*3/uL Basophil # <0.03 0.00 - 0.20 10*3/uL nRBC % 0.0 /100 WBCs nRBC # <0.01 <0.01 10*3/uL Comprehensive metabolic panel Collection Time: 03/15/24 5:53 AM Specimen: Venous, Peripheral; Blood Result Value Ref Range NA 141 135 - 145 mmol/L K 3.9 3.5 - 5.3 mmol/L Cl 106 98 - 107 mmol/L CO2 21 (L) 22 - 32 mmol/L Anion Gap 14 5 - 15 Glucose 109 (H) 65 - 99 mg/dL Creatinine 1.64 (H) 0.60 - 1.30 mg/dL Calcium 9.0 8.6 - 10.5 mg/dL Total Protein 6.4 6.0 - 8.0 g/dL Albumin 3.7 3.5 - 5.2 g/dL Bilirubin, Total 0.6 0.2 - 1.2 mg/dL Alkaline Phosphatase 74 35 - 129 U/L AST 38 10 - 40 U/L ALT 37 10 - 40 U/L BUN 47 (H) 7 - 23 mg/dL eGFR 46 (L) >=60 mL/min/1.73m2 Globulin, Total 2.7 2.1 - 4.2 g/dL A/G Ratio 1.4 (L) 1.5 - 3.0 Urinalysis W/Reflex to Microscopic & Culture Collection Time: 03/15/24 2:47 PM Specimen: Clean Catch; Urine Result Value Ref Range Color, Urine Yellow Colorless, Light Yellow, Yellow, Dark Yellow Clarity, Urine Clear Clear Specific [place], Urine 1.023 1.005 - 1.030 pH, Urine 5.0 4.6 - 8.0 Protein, Urine Negative Negative Glucose, Urine Negative Negative Ketones, Urine Negative Negative Bilirubin, Urine Negative Negative Blood, Urine Negative Negative Nitrite, Urine Negative Negative Urobilinogen, Urine Normal Normal Leukocyte Esterase, Urine Negative Negative Price Top, Urine Collection Time: 03/15/24 2:47 PM Specimen: Clean Catch; Urine Result Value Ref Range Extra Tube Hold for add-ons. Microalbumin, Random Urine with Creatinine Collection Time: 03/15/24 2:47 PM Specimen: Clean Catch; Urine Result Value Ref Range Microalbumin, Urine 6.0 mg/dL Creatinine, Urine 133 22 - 328 mg/dL Microalb/Creat Ratio, Random Urine 45.1 (H) <30.0 mcg/mgCr CBC Auto Differential Collection Time: 03/16/24 7:28 AM Specimen: Venous, Peripheral; Blood Result Value Ref Range WBC 6.8 3.8 - 10.8 10*3/uL RBC 5.57 4.20 - 5.80 10*6/uL Hemoglobin 16.3 13.2 - 17.1 g/dL Hematocrit 47.8 38.5 - 50.0 % MCV 85.8 80.0 - 100.0 fL MCH 29.3 27.0 - 33.0 pg MCHC 34.1 32.0 - 36.0 g/dL RDW 12.9 11.0 - 15.0 % Platelets 115 (L) 140 - 400 10*3/uL MPV 11.2 7.5 - 12.5 fL Neutrophil % 78.6 % Immature Grans % 0.9 0.0 - 0.9 % Lymphocyte % 12.4 % Monocyte % 7.4 % Eosinophil % 0.6 % Basophil % 0.1 % Neutrophil # 5.34 1.50 - 7.80 10*3/uL Immature Grans # 0.06 (H) <=0.03 10*3/uL Lymphocyte # 0.80 (L) 0.85 - 3.90 10*3/uL Monocyte # 0.50 0.20 - 0.95 10*3/uL Eosinophil # <0.03 0.02 - 0.50 10*3/uL Basophil # <0.03 0.00 - 0.20 10*3/uL nRBC % 0.0 /100 WBCs nRBC # <0.01 <0.01 10*3/uL IMAGING: Pertinent Imaging results include XR Chest Portable 1 View Narrative: COMPARISON: X-ray 11/22/2022. Impression: FINDINGS AND IMPRESSION: No gross focal consolidation, pleural effusion or pneumothorax. Hazy and streaky left basilar/retrocardiac opacities, likely representing atelectasis. Heart size and pulmonary vasculature within normal limits given technique. No acute osseous abnormality. Sternotomy wires. I, Shira Gusman, have reviewed the examination and concur with the findings as reported or so edited. Trainee: Belme Nguyễn If this radiology report contains a blank impression section, it is an incomplete radiology report.Please contact the interpreting radiologist or applicable radiology division as soon as possible toobtain the completed interpretation. Workstation ID: [id number] GLOBAL PLAN OF CARE CONSULTS: IP CONSULT TO INFECTIOUS DISEASES IP CONSULT TO CARDIOLOGY IP CONSULT TO NEPHROLOGY PROCEDURES: . Active Lines Name Placement date Placement time Site Days Peripheral IV 03/12/24 Posterior;Proximal;Right Forearm 03/12/24 1234 Forearm 3 Peripheral IV 03/13/24 Anterior;Proximal;Right Forearm 03/13/24 0526 Forearm 3 , Active Drains None , Active Airways None VENT SETTINGS (LAST 12 HOURS): CONDITION: Fair ADVANCED CARE PLANNING Code Status: DNR/DNI (with non-invasive ventilation only) Medical Decision Maker: Patient Signature: Joseph Angela MD PGY-2 Electronic Signature Cosigned by Rico Landa MD at 03/16/2024 3:06 PM EST Associated attestation - Rico Landa MD - 03/16/2024 3:06 PM EST I spent 45 minutes performing discharge day services (e.g. examination, discussion of hospital course, follow up care and planning) as appropriate I saw and evaluated the patient on the date of discharge. I reviewed and agree with the resident's documentation. Wagner Quintanilla : 1955 [facility]: [phone] documented in this encounter Discharge Instructions * Discharge Instructions* Chelsey Bagley MD - 03/16/2024 11:36 AM EST Discharge Instructions for Wagner Quintanilla Hospitalized 03/12/2024 to 03/16/2024 ? FOLLOW UP Obtain repeat labs outpatient in 1 week Follow up with your primary doctor in the next 2 weeks. In addition, please follow-up with your providers per below: Future Appointments Date Time Provider Department Center 04/24/2024 1:00 PM CLINIC, [facility] 05/24/2024 10:30 AM CLINIC, HEART TRANSPLANT [facility] [place] 06/25/2024 1:15 PM ANDREA Bower Derm [address] [place] [address] Please review your medication list provided to you at discharge. Please bring a copy of your medications as well as any paperwork from your hospitalization to your follow up appointments. Please START Taking these Medications: Current Discharge Medication List Please CHANGE how you take these medications: Current Discharge Medication List Please STOP taking these medications: Current Discharge Medication List STOP taking these medications losartan (COZAAR) 100 mg tablet Comments: discontinue until repeat labwork in 1 week and PCP followup Reason for Stopping: normal BP and elevated kidney labs while admitted Please take all medications as prescribed and do not stop taking your medications without speaking to your doctor. ACTIVITY Return to: activity as tolerated DIET Resume a diet composed of fresh fruits and vegetables, with lean meats in moderation, and avoidanceof over-processed or high-sugar foods. Recommended diet: regular diet ? IN CASE OF EMERGENCY If not in immediate danger, call your family doctor first or go to an Urgent Care facility. In the case of a true emergency, call 911 or go to an Emergency Department such as the one at [facility] or [facility]. It is important to bring a complete, current list of your medications to any medical appointments or hospitalizations. documented in this encounter Medications at Time of Discharge amLODIPine (NORVASC) 2.5 mg tablet Take 1 tablet (2.5 mg total) by mouth once a day. 90 tablet 3 02/13/2024 11:20 AM EST 07/10/2023 amoxicillin (AMOXIL) 500 mg capsule Take 4 capsules (2,000 mg total) by mouth daily. 1 HOUR PRIOR TO DENTAL APPOINTMENT 16 capsule 4 08/30/2018 aspirin 81 mg EC tablet 81 mg daily. 03/26/2008 atorvastatin (LIPITOR) 40 mg tablet Take 1 tablet (40 mg total) by mouth daily. 90 tablet 3 02/27/2024 9:53 PM EST 10/25/2023 calcium carbonate-vitami n D3 600 mg(1,500mg) -400 unit per tablet Take 1 tablet by mouth once a day. 90 tablet 3 10/22/2020 ciclopirox (PENLAC) 8 % solutionIndicati ons:Onychomycosi s Apply over nail and surrounding skin. Apply daily over previous coat. After seven (7) days, may remove with alcohol and continue cycle. 6.6 mL 3 05/09/2023 8:00 AM EST 09/20/2022 citalopram (CeleXA) 20 mg tablet Take 1 tablet (20 mg total) by mouth daily. 90 tablet 3 02/27/2024 9:53 PM EST 10/25/2023 ferrous sulfate 325 mg (65 mg iron) tablet Take 1 tablet every other day 60 tablet 11 07/23/2021 multivitamin no.44-vit D3-K 1,000-800 unit-mcg capsule Multivitamins CAPS 1TAB Qday, Refills: 0 Started 26-Mar-2008 Active 03/26/2008 mycophenolate (CELLCEPT) 500 mg tabletIndication s:Heart replaced by transplant (HCC) Take 1 tablet (500 mg total) by mouth 2 times a day. 180 tablet 3 01/04/2024 1:09 PM EDT 12/28/2023 NeoraL 25 mg capsule Take 3 capsules (75 mg total) by mouth 2 times a day. 540 capsule 3 01/04/2024 1:09 PM EDT 06/17/[address] (PROTONIX) 40 mg tablet Take 1 tablet (40 mg total) by mouth once a day. 90 tablet 3 01/04/2024 1:09 PM EDT 12/27/2023 documented as of this encounter Progress Notes * Chelsey Bagley MD - 03/15/2024 9:51 AM EST Progress Note 03/15/2024 Wagner Quintanilla is a 68 y.o. male (hospital day 3) admitted for mgmt of AHRF iso COVID. Subjective CHIEF COMPLAINT: SOB SUBJECTIVE: Patient examined and interviewed at the bedside. 24 HOUR INTERVAL HISTORY: - NAEO, VSS - On room air - continued remdesivir (end 03/16) and dexamethasone for COVID Objective VITAL SIGNS FOR PAST 24 Hours ([High] [Low] (Last Recorded Value)): Temp: [36.4 ??C (97.5 ??F)-36.8 ??C (98.3 ??F)] 36.5 ??C (97.7 ??F) Heart Rate: [74-86] 80 Resp: [16-18] 18 BP: (111-144)/(72-96) 135/86 SpO2: [96 %-97 %] 97 % I/Os LAST 24 HOURS: Intake/Output Summary (Last 24 hours) at 03/15/2024 0951 Last data filed at 03/15/2024 0744 Gross per 24 hour Intake 160 ml Output 1225 ml Net -1065 ml PHYSICAL EXAM: GENERAL: In no acute distress. Appears of appropriate age. HEAD: Atraumatic, normal cephalic EYES: PERRLA, EOMI, scleral anicteric, conjunctiva normal THROAT: supple, full ROM, no thyromegaly NECK: No jugular venous distention. CARDIOVASCULAR: Regular rate and rhythm with normal S1 and S2. No S3 or S4. No murmurs, rubs, gallops PULMONARY: Clear breath sounds bilaterally on auscultation. No tachypnea or respiratory distress. No wheezing. ABDOMINAL: Soft, non-tender in all quadrants, non-distended, with normoactive bowel sounds. EXTREMITIES: Warm and well perfused. PSYCHIATRIC: Calm, no agitation. NEUROLOGIC: Alert and oriented SKIN: No jaundice. No pallor. MEDICATIONS: Current Facility-Administered Medications Medication Dose Route Frequency Provider Last Rate Last Admin acetaminophen (TYLENOL) tablet 650 mg 650 mg oral q4h PRN Andrew Edward DO aspirin EC tablet 81 mg 81 mg oral Daily Andrew Edward DO 81 mg at 03/15/24 0839 atorvastatin (LIPITOR) tablet 40 mg 40 mg oral Daily Andrew Edward DO 40 mg at 03/14/247 calcium carbonate-vitamin D3 500 mg-200 units 1 tablet 1 tablet oral Daily Andrew Edward DO 1 tablet at 03/15/24 0839 citalopram (CeleXA) tablet 20 mg 20 mg oral Daily Andrew Edward DO 20 mg at 03/15/24 0839 cycloSPORINE modified (GENGRAF, NEORAL) capsule 75 mg 75 mg oral 2x daily Andrew Edward DO 75 mg at 03/15/24 0837 dexAMETHasone (DECADRON) tablet 6 mg 6 mg oral Daily Andrew Edward DO 6 mg at 03/15/24 0839 ferrous sulfate EC tablet 325 mg 325 mg oral Daily Andrew Edward, DO 325 mg at 03/15/24 0839 guaiFENesin (ROBITUSSIN) 100 mg/5 mL syrup 200 mg 200 mg oral q4h PRN Andrew Edward, DO 200 mg at 03/14/24 0934 heparin subcutaneous injection 5,000 Units 5,000 Units subcutaneous q8h [facility] Andrew Edward, DO 5,000Units at 03/15/24 0608 mycophenolate mofetil (CELLCEPT) capsule 500 mg 500 mg oral q12h [facility] Andrew Edward, DO 500 mg at 03/15/[address] (PROTONIX) tablet 40 mg 40 mg oral Daily Andrew Edward, 40 mg at 03/15/24 0839 remdesivir (VEKLURY) 100 mg in 0.9% NaCl 100 mL Mini-Bag Plus 100 mg intravenous q24h Chelsey Bagley MD Stopped at 03/15/24 0824 And sodium chloride 0.9% flush 30 mL 30 mL intravenous q24h Chelsey Bagley MD 30 mL at 03/15/24 0836 sodium chloride 0.9% flush 2.5-10 mL 2.5-10 mL intravenous See admin instructions Andrew Edward DO And sodium chloride 0.9% flush 2.5-10 mL 2.5-10 mL intravenous q12h ELENA Edward DO 3 mL at 03/15/24 0841 sodium chloride 0.9% flush 2.5-10 mL 2.5-10 mL intravenous See admin instructions Andrew Edward DO And sodium chloride 0.9% flush 2.5-10 mL 2.5-10 mL intravenous q12h ELENA Edward DO 3 mL at 03/15/24 0840 Current Outpatient Medications Medication Sig Dispense Refill amLODIPine (NORVASC) 2.5 mg tablet Take 1 tablet (2.5 mg total) by mouth once a day. 90 tablet 3 amoxicillin (AMOXIL) 500 mg capsule Take 4 capsules (2,000 mg total) by mouth daily. 1 HOUR PRIOR TO DENTAL APPOINTMENT 16 capsule 4 aspirin 81 mg EC tablet 81 mg daily. atorvastatin (LIPITOR) 40 mg tablet Take 1 tablet (40 mg total) by mouth daily. 90 tablet 3 calcium carbonate-vitamin D3 600 mg(1,500mg) -400 unit per tablet Take 1 tablet by mouth once a day. 90 tablet 3 ciclopirox (PENLAC) 8 % solution Apply over nail and surrounding skin. Apply daily over previous coat. After seven (7) days, may remove with alcohol and continue cycle. 6.6 mL 3 citalopram (CeleXA) 20 mg tablet Take 1 tablet (20 mg total) by mouth daily. 90 tablet 3 ferrous sulfate 325 mg (65 mg iron) tablet Take 1 tablet every other day 60 tablet 11 losartan (COZAAR) 100 mg tablet Take 1 tablet (100 mg total) by mouth daily. 90 tablet 3 multivitamin no.44-vit D3-K 1,000-800 unit-mcg capsule Multivitamins CAPS 1TAB Qday, Refills: 0 Started -Mar-2008 Active mycophenolate (CELLCEPT) 500 mg tablet Take 1 tablet (500 mg total) by mouth 2 times a day. 180 tablet 3 NeoraL 25 mg capsule Take 3 capsules (75 mg total) by mouth 2 times a day. [address] (PROTONIX) 40 mg tablet Take 1 tablet (40 mg total) by mouth once a day. 90 tablet 3 predniSONE (DELTASONE) 5 mg tablet Take 1 tablet (5 mg total) by mouth daily. 90 tablet 3 LAB: Recent Results (from the past 24 hours) CBC Auto Differential Collection Time: 03/15/24 5:53 AM Specimen: Venous, Peripheral; Blood Result Value Ref Range WBC 4.6 3.8 - 10.8 10*3/uL RBC 5.23 4.20 - 5.80 10*6/uL Hemoglobin 15.0 13.2 - 17.1 g/dL Hematocrit 46.4 38.5 - 50.0 % MCV 88.7 80.0 - 100.0 fL MCH 28.7 27.0 - 33.0 pg MCHC 32.3 32.0 - 36.0 g/dL RDW 12.9 11.0 - 15.0 % Platelets 105 (L) 140 - 400 10*3/uL MPV 10.9 7.5 - 12.5 fL Neutrophil % 73.5 % Immature Grans % 0.4 0.0 - 0.9 % Lymphocyte % 17.4 % Monocyte % 8.7 % Eosinophil % 0.0 % Basophil % 0.0 % Neutrophil # 3.39 1.50 - 7.80 10*3/uL Immature Grans # <0.03 <=0.03 10*3/uL Lymphocyte # 0.80 (L) 0.85 - 3.90 10*3/uL Monocyte # 0.40 0.20 - 0.95 10*3/uL Eosinophil # <0.03 0.02 - 0.50 10*3/uL Basophil # <0.03 0.00 - 0.20 10*3/uL nRBC % 0.0 /100 WBCs nRBC # <0.01 <0.01 10*3/uL Comprehensive metabolic panel Collection Time: 03/15/24 5:53 AM Specimen: Venous, Peripheral; Blood Result Value Ref Range NA 141 135 - 145 mmol/L K 3.9 3.5 - 5.3 mmol/L Cl 106 98 - 107 mmol/L CO2 21 (L) 22 - 32 mmol/L Anion Gap 14 5 - 15 Glucose 109 (H) 65 - 99 mg/dL Creatinine 1.64 (H) 0.60 - 1.30 mg/dL Calcium 9.0 8.6 - 10.5 mg/dL Total Protein 6.4 6.0 - 8.0 g/dL Albumin 3.7 3.5 - 5.2 g/dL Bilirubin, Total 0.6 0.2 - 1.2 mg/dL Alkaline Phosphatase 74 35 - 129 U/L AST 38 10 - 40 U/L ALT 37 10 - 40 U/L BUN 47 (H) 7 - 23 mg/dL eGFR 46 (L) >=60 mL/min/1.73m2 Globulin, Total 2.7 2.1 - 4.2 g/dL A/G Ratio 1.4 (L) 1.5 - 3.0 IMAGING/OTHER STUDIES: XR Chest Portable 1 View Narrative: COMPARISON: X-ray 11/22/2022. Impression: FINDINGS AND IMPRESSION: No gross focal consolidation, pleural effusion or pneumothorax. Hazy and streaky left basilar/retrocardiac opacities, likely representing atelectasis. Heart size and pulmonary vasculature within normal limits given technique. No acute osseous abnormality. Sternotomy wires. I, Shira Gusman, have reviewed the examination and concur with the findings as reported or so edited. Trainee: Belem Nguyễn If this radiology report contains a blank impression section, it is an incomplete radiology report.Please contact the interpreting radiologist or applicable radiology division as soon as possible toobtain the completed interpretation. Workstation ID: [id number] HOSPITAL PROBLEMS: Principal Problem: COVID Active Problems: Essential hypertension Heart replaced by transplant ([facility]) Subclinical hypothyroidism Sarcoidosis Dyslipidemia Acute kidney injury superimposed on CKD ([facility]) Gastroesophageal reflux disease without esophagitis Lactic acidosis ASSESSMENT AND PLAN: Assessment & Plan Assessment & Plan COVID Patient has a history of heart failure requiring transplantation 20 years ago and is presenting to hospital from [place] secondary to hypoxic respiratory failure initially requiring [...] streaky left basilar/retrocardiac opacities, likely representing atelectasis; Heartsize and pulmonary vasculature within normal limits given [...] as needed for pain/fever -Strict airborne/contact precautions Heart replaced by transplant ([facility]) 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 Patient is chronically on mycophenolate mofetil, and cyclosporine as well as prednisone 5 mg daily. 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 Patient has been seen by Pulmonology in 2021 with pulmonary function testing at the timeshowing a mild obstructive defect but is not currently on any inhalers Dyslipidemia - Continue home atorvastatin 40 mg daily Acute kidney injury superimposed on CKD (HCC) Patient has a history of chronic kidney [...] CKD - Transplant nephrology consulted - Monitor BMP daily Gastroesophageal reflux disease without esophagitis - Continue home pantoprazole 40 mg daily GLOBAL PLAN OF CARE: Code Status: DNR/DNI (with non-invasive ventilation only) Maintenance Fluids: none Diet: Diet, Adult Full participation; Cardiac; 50 gm Fat; 2,300 mg Na; 1500 mL Fluid DVT Prophylaxis: heparin subcutaneous I have discussed the care plan with my attending. Chelsey Bagley MD PGY-1 Pager #[phone] 03/15/24 Cosigned by Rico Landa MD at 03/15/2024 2:42 PM EST Associated attestation - Rico Landa MD - 03/15/2024 2:42 PM EST I saw and evaluated the patient. Case discussed with the resident/fellow and I agree with the findings and plan as documented in the resident's/fellow's note. Continues to remain on RA. No fevers. Tolerating decadron/ remdesivir for COVID. Cr remained stable at 1.64. Disucssed with patient and her Daughter Shantelle over the phone in regards to overall plan to continue rx with remedsivir/ decadron for until 03/16 and monitor cr closley over next week. Will need close follow up with renal as outpatient. He sees Dr. Hoover at [facility] and recommended close follow up with him with repeat cr in one to 2 weeks if continues to remain stable prior to dc. I spent a total of 45 minutes on the date of encounter, which included: ?? Preparing to see the patient (e.g., review of test results) ?? Performing a medically appropriate exam and/or evaluation ?? Ordering medications, tests, procedures ?? Documenting clinical information in the health record * Chelsey Bagley MD - 03/14/2024 10:10 AM EST Progress Note 03/14/2024 Wagner Quintanilla is a 68 y.o. male (hospital day 2) admitted for mgmt of AHRF iso COVID. Subjective CHIEF COMPLAINT: SOB SUBJECTIVE: Patient examined and interviewed at the bedside. 24 HOUR INTERVAL HISTORY: - NAEO, VSS - Weaned to room air - on remdesivir and dexamethasone for covid - discontinued abx Objective VITAL SIGNS FOR PAST 24 Hours ([High] [Low] (Last Recorded Value)): Temp: [36.4 ??C (97.5 ??F)-36.8 ??C (98.3 ??F)] 36.6 ??C (97.9 ??F) Heart Rate: [62-91] 77 Resp: [15-22] 19 BP: (110-147)/(74-90) 147/90 SpO2: [95 %-99 %] 99 % I/Os LAST 24 HOURS: Intake/Output Summary (Last 24 hours) at 03/14/2024 1010 Last data filed at 03/14/2024 0422 Gross per 24 hour Intake -- Output 800 ml Net -800 ml PHYSICAL EXAM: GENERAL: In no acute distress. Appears of appropriate age. HEAD: Atraumatic, normal cephalic EYES: PERRLA, EOMI, scleral anicteric, conjunctiva normal THROAT: supple, full ROM, no thyromegaly NECK: No jugular venous distention. CARDIOVASCULAR: Regular rate and rhythm with normal S1 and S2. No S3 or S4. No murmurs, rubs, gallops PULMONARY: Clear breath sounds bilaterally on auscultation. No tachypnea or respiratory distress. No wheezing. ABDOMINAL: Soft, non-tender in all quadrants, non-distended, with normoactive bowel sounds. EXTREMITIES: Warm and well perfused. PSYCHIATRIC: Calm, no agitation. NEUROLOGIC: Alert and oriented SKIN: No jaundice. No pallor. MEDICATIONS: Current Facility-Administered Medications Medication Dose Route Frequency Provider Last Rate Last Admin acetaminophen (TYLENOL) tablet 650 mg 650 mg oral q4h PRN Andrew Edward DO aspirin EC tablet 81 mg 81 mg oral Daily Andrew Edward DO 81 mg at 03/14/24 0936 atorvastatin (LIPITOR) tablet 40 mg 40 mg oral Daily Andrew Edward, DO 40 mg at 03/13/24 0509 calcium carbonate-vitamin D3 500 mg-200 units 1 tablet 1 tablet oral Daily Andrew Edward DO 1 tablet at 03/14/24 0935 citalopram (CeleXA) tablet 20 mg 20 mg oral Daily Andrew Edward, DO 20 mg at 03/14/24 0938 cycloSPORINE modified (GENGRAF, NEORAL) capsule 75 mg 75 mg oral 2x daily Andrew Edward DO 75 mg at 03/14/24 0938 dexAMETHasone (DECADRON) tablet 6 mg 6 mg oral Daily Andrew Edward, DO 6 mg at 03/14/24 0936 ferrous sulfate EC tablet 325 mg 325 mg oral Daily Andrew Edward DO 325 mg at 03/14/24 0937 guaiFENesin (ROBITUSSIN) 100 mg/5 mL syrup 200 mg 200 mg oral q4h PRN Andrew Edward DO 200 mg at 03/14/24 0934 heparin subcutaneous injection 5,000 Units 5,000 Units subcutaneous q8h [facility] Andrew Edward DO 5,000Units at 03/14/24 0617 mycophenolate mofetil (CELLCEPT) capsule 500 mg 500 mg oral q12h [facility] Andrew Edward DO 500 mg at 03/14/[address] (PROTONIX) tablet 40 mg 40 mg oral Daily Andrew Edward DO 40 mg at 03/14/24 0934 remdesivir (VEKLURY) 100 mg in 0.9% NaCl 100 mL Mini-Bag Plus 100 mg intravenous q24h Chelsey Bagley MD 200 mL/hr at 03/14/24 0950 100 mg at 03/14/24 0950 And sodium chloride 0.9% flush 30 mL 30 mL intravenous q24h Chelsey Bagley MD sodium chloride 0.9% flush 2.5-10 mL 2.5-10 mL intravenous See admin instructions Andrew Edward DO And sodium chloride 0.9% flush 2.5-10 mL 2.5-10 mL intravenous q12h [facility] Andrew Edward DO 10 mL at 03/14/24 0951 sodium chloride 0.9% flush 2.5-10 mL 2.5-10 mL intravenous See admin instructions Andrew Edward DO And sodium chloride 0.9% flush 2.5-10 mL 2.5-10 mL intravenous q12h [facility] Andrew Edward DO 10 mL at 03/14/24 0951 Current Outpatient Medications Medication Sig Dispense Refill amLODIPine (NORVASC) 2.5 mg tablet Take 1 tablet (2.5 mg total) by mouth once a day. 90 tablet 3 amoxicillin (AMOXIL) 500 mg capsule Take 4 capsules (2,000 mg total) by mouth daily. 1 HOUR PRIOR TO DENTAL APPOINTMENT 16 capsule 4 aspirin 81 mg EC tablet 81 mg daily. atorvastatin (LIPITOR) 40 mg tablet Take 1 tablet (40 mg total) by mouth daily. 90 tablet 3 calcium carbonate-vitamin D3 600 mg(1,500mg) -400 unit per tablet Take 1 tablet by mouth once a day. 90 tablet 3 ciclopirox (PENLAC) 8 % solution Apply over nail and surrounding skin. Apply daily over previous coat. After seven (7) days, may remove with alcohol and continue cycle. 6.6 mL 3 citalopram (CeleXA) 20 mg tablet Take 1 tablet (20 mg total) by mouth daily. 90 tablet 3 ferrous sulfate 325 mg (65 mg iron) tablet Take 1 tablet every other day 60 tablet 11 losartan (COZAAR) 100 mg tablet Take 1 tablet (100 mg total) by mouth daily. 90 tablet 3 multivitamin no.44-vit D3-K 1,000-800 unit-mcg capsule Multivitamins CAPS 1TAB Qday, Refills: 0 Started -Mar-2008 Active mycophenolate (CELLCEPT) 500 mg tablet Take 1 tablet (500 mg total) by mouth 2 times a day. 180 tablet 3 NeoraL 25 mg capsule Take 3 capsules (75 mg total) by mouth 2 times a day. [address] (PROTONIX) 40 mg tablet Take 1 tablet (40 mg total) by mouth once a day. 90 tablet 3 predniSONE (DELTASONE) 5 mg tablet Take 1 tablet (5 mg total) by mouth daily. 90 tablet 3 LAB: Recent Results (from the past 24 hours) CBC Auto Differential Collection Time: 03/14/24 7:40 AM Specimen: Venous, Peripheral; Blood Result Value Ref Range WBC 5.0 3.8 - 10.8 10*3/uL RBC 5.62 4.20 - 5.80 10*6/uL Hemoglobin 16.1 13.2 - 17.1 g/dL Hematocrit 48.1 38.5 - 50.0 % MCV 85.6 80.0 - 100.0 fL MCH 28.6 27.0 - 33.0 pg MCHC 33.5 32.0 - 36.0 g/dL RDW 13.0 11.0 - 15.0 % Platelets 130 (L) 140 - 400 10*3/uL MPV 11.1 7.5 - 12.5 fL Neutrophil % 63.6 % Immature Grans % 0.2 0.0 - 0.9 % Lymphocyte % 24.8 % Monocyte % 11.4 % Eosinophil % 0.0 % Basophil % 0.0 % Neutrophil # 3.19 1.50 - 7.80 10*3/uL Immature Grans # <0.03 <=0.03 10*3/uL Lymphocyte # 1.20 0.85 - 3.90 10*3/uL Monocyte # 0.60 0.20 - 0.95 10*3/uL Eosinophil # <0.03 0.02 - 0.50 10*3/uL Basophil # <0.03 0.00 - 0.20 10*3/uL nRBC % 0.0 /100 WBCs nRBC # <0.01 <0.01 10*3/uL Comprehensive Metabolic Panel Collection Time: 03/14/24 8:35 AM Specimen: Venous, Peripheral; Blood Result Value Ref Range NA 143 135 - 145 mmol/L K 3.6 3.5 - 5.3 mmol/L Cl 104 98 - 107 mmol/L CO2 22 22 - 32 mmol/L Anion Gap 17 (H) 5 - 15 Glucose 111 (H) 65 - 99 mg/dL Creatinine 1.62 (H) 0.60 - 1.30 mg/dL Calcium 9.5 8.6 - 10.5 mg/dL Total Protein 7.5 6.0 - 8.0 g/dL Albumin 4.2 3.5 - 5.2 g/dL Bilirubin, Total 0.9 0.2 - 1.2 mg/dL Alkaline Phosphatase 87 35 - 129 U/L AST 48 (H) 10 - 40 U/L ALT 36 10 - 40 U/L BUN 41 (H) 7 - 23 mg/dL eGFR 47 (L) >=60 mL/min/1.73m2 Globulin, Total 3.3 2.1 - 4.2 g/dL A/G Ratio 1.3 (L) 1.5 - 3.0 IMAGING/OTHER STUDIES: XR Chest Portable 1 View Narrative: COMPARISON: X-ray 11/22/2022. Impression: FINDINGS AND IMPRESSION: No gross focal consolidation, pleural effusion or pneumothorax. Hazy and streaky left basilar/retrocardiac opacities, likely representing atelectasis. Heart size and pulmonary vasculature within normal limits given technique. No acute osseous abnormality. Sternotomy wires. I, Shira Gusman, have reviewed the examination and concur with the findings as reported or so edited. Trainee: Belem Nguyễn If this radiology report contains a blank impression section, it is an incomplete radiology report.Please contact the interpreting radiologist or applicable radiology division as soon as possible toobtain the completed interpretation. Workstation ID: [id number] HOSPITAL PROBLEMS: Principal Problem: COVID Active Problems: Essential hypertension Heart replaced by transplant (HCC) Subclinical hypothyroidism Sarcoidosis Dyslipidemia Acute kidney injury superimposed on CKD (HCC) Gastroesophageal reflux disease without esophagitis Lactic acidosis ASSESSMENT AND PLAN: Assessment & Plan Assessment & Plan COVID Patient has a history of heart failure requiring transplantation 20 years ago and is presenting to hospital from [place] secondary to hypoxic respiratory failure initially requiring [...] streaky left basilar/retrocardiac opacities, likely representing atelectasis; Heartsize and pulmonary vasculature within normal limits given [...] as needed for pain/fever -Strict airborne/contact precautions Essential hypertension - Holding home amlodipine in setting of lactic acidosis - Holding home losartan due to acute kidney injury Heart replaced by transplant ([facility]) 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 Patient is chronically on mycophenolate mofetil, and cyclosporine as well as prednisone 5 mg daily. Patient has been seen by Pulmonology in 2021 with pulmonary function testing at the timeshowing a mild obstructive defect but is not [...] daily x 7-day course in the setting ofactive COVID infection - Cardiology consulted, recommended continued monitoring, no changes to medications -Monitor patient on telemetry -Monitor vitals every 4 hours and CBC daily -Monitor daily weights and strict I's and O's Subclinical hypothyroidism Last reported TSH of 1.086 2 years ago. 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 Patient has been seen by Pulmonology in 2021 with pulmonary function testing at the timeshowing a mild obstructive defect but is not currently on any inhalers Dyslipidemia - Continue home atorvastatin 40 mg daily Acute kidney injury superimposed on CKD (HCC) Patient has a history of chronic kidney disease and follows with Nephrology in the outpatient setting. Patient's baseline creatinine of 1.2-1.4; current creatinine of 2.18. Patient's troponins were trending flat and proBNP of slightly greater than 400. - Holding home losartan - urine electrolytes - Holding off on further fluids with heart failure history - Transplant nephrology consulted - Monitor BMP daily Gastroesophageal reflux disease without esophagitis - Continue home pantoprazole 40 mg daily Lactic acidosis Was noted emergency department to have initial lactic acid of 4.2 which improved to 2.0 with antibiotics and fluids. Patient was given stacked nebulizers in emergency department and at the moment demonstrates no signs of sepsis apart from a very slight leukopenia. -lactic acid resolved GLOBAL PLAN OF CARE: Code Status: DNR/DNI (with non-invasive ventilation only) Maintenance Fluids: none Diet: Diet, Adult Full participation; Cardiac; 50 gm Fat; 2,300 mg Na; 1500 mL Fluid DVT Prophylaxis: heparin subcutaneous I have discussed the care plan with my attending. Chelsey Bagley MD PGY-1 Pager #[phone] 03/14/24 Cosigned by Rico Landa MD at 03/14/2024 2:06 PM EST Associated attestation - Rico Landa MD - 03/14/2024 2:06 PM EST I saw and evaluated the patient. Case discussed with the resident/fellow and I agree with the findings and plan as documented in the resident's/fellow's note. I spent a total of 45 minutes on the date of encounter, which included: ?? Preparing to see the patient (e.g., review of test results) ?? Performing a medically appropriate exam and/or evaluation ?? Ordering medications, tests, procedures ?? Documenting clinical information in the health record * Chelsey Bagley MD - 03/13/2024 10:08 AM EST Progress Note 03/13/2024 Wagner Quintanilla is a 68 y.o. male (hospital day 1) admitted for mgmt of AHRF iso COVID. Subjective CHIEF COMPLAINT: SOB SUBJECTIVE: Patient examined and interviewed at the bedside. 24 HOUR INTERVAL HISTORY: - admitted to medicine, VSS - Weaned off HFNC to NC 2L - started on remdesivir, ceftriaxone, doxycycline for covid, pna Objective VITAL SIGNS FOR PAST 24 Hours ([High] [Low] (Last Recorded Value)): Temp: [36.6 ??C (97.9 ??F)-36.8 ??C (98.3 ??F)] 36.6 ??C (97.9 ??F) Heart Rate: [72-95] 89 Resp: [15-30] 27 BP: (115-161)/(75-111) 118/75 SpO2: [94 %-100 %] 96 % Set FiO2 (O2%): [21 %-40 %] 40 % I/Os LAST 24 HOURS: Intake/Output Summary (Last 24 hours) at 03/13/2024 1008 Last data filed at 03/12/2024 1917 Gross per 24 hour Intake 700 ml Output 400 ml Net 300 ml PHYSICAL EXAM: GENERAL: In no acute distress. Appears of appropriate age. HEAD: Atraumatic, normal cephalic EYES: PERRLA, EOMI, scleral anicteric, conjunctiva normal THROAT: supple, full ROM, no thyromegaly NECK: No jugular venous distention. CARDIOVASCULAR: Regular rate and rhythm with normal S1 and S2. No S3 or S4. No murmurs, rubs, gallops PULMONARY: Clear breath sounds bilaterally on auscultation. No tachypnea or respiratory distress. No wheezing. ABDOMINAL: Soft, non-tender in all quadrants, non-distended, with normoactive bowel sounds. EXTREMITIES: Warm and well perfused. PSYCHIATRIC: Calm, no agitation. NEUROLOGIC: Alert and oriented SKIN: No jaundice. No pallor. MEDICATIONS: Current Facility-Administered Medications Medication Dose Route Frequency Provider Last Rate Last Admin acetaminophen (TYLENOL) tablet 650 mg 650 mg oral q4h PRN Andrew Edward DO aspirin EC tablet 81 mg 81 mg oral Daily Andrew Edward, DO 81 mg at 03/13/24 0804 atorvastatin (LIPITOR) tablet 40 mg 40 mg oral Daily Andrew Edward, DO 40 mg at 03/13/24 0509 calcium carbonate-vitamin D3 500 mg-200 units 1 tablet 1 tablet oral Daily Andrew Edward, DO 1 tablet at 03/13/24 0804 cefTRIAXone (ROCEPHIN) injection 1 g 1 g intravenous q24h [facility] Andrew Edward DO citalopram (CeleXA) tablet 20 mg 20 mg oral Daily Andrew Edward, DO 20 mg at 03/13/24 0806 cycloSPORINE modified (GENGRAF, NEORAL) capsule 75 mg 75 mg oral 2x daily Andrew Edward, DO 75 mg at 03/13/24 0803 dexAMETHasone (DECADRON) tablet 6 mg 6 mg oral Daily Andrew Edward, DO 6 mg at 03/13/24 0805 doxycycline monohydrate (MONODOX) capsule 100 mg 100 mg oral q12h ELENA Edward, DO 100 mg at 03/13/24 0805 ferrous sulfate EC tablet 325 mg 325 mg oral Daily Andrew Edward, DO 325 mg at 03/13/24 0804 guaiFENesin (ROBITUSSIN) 100 mg/5 mL syrup 200 mg 200 mg oral q4h PRN Andrew Edward DO heparin subcutaneous injection 5,000 Units 5,000 Units subcutaneous q8h ELENA Edward, DO 5,000Units at 03/13/24 0510 mycophenolate mofetil (CELLCEPT) capsule 500 mg 500 mg oral q12h [facility] Andrew Edward, DO 500 mg at 03/13/[address] (PROTONIX) tablet 40 mg 40 mg oral Daily Andrew Edward, DO 40 mg at 03/13/24 0806 remdesivir (VEKLURY) 100 mg in 0.9% NaCl 100 mL Mini-Bag Plus 100 mg intravenous q24h Andrew Edward, DO And sodium chloride 0.9% flush 30 mL 30 mL intravenous q24h Andrew Edward, DO 30 mL at 03/12/24 1530 sodium chloride 0.9% flush 2.5-10 mL 2.5-10 mL intravenous See admin instructions Andrew Edward, DO And sodium chloride 0.9% flush 2.5-10 mL 2.5-10 mL intravenous q12h [facility] Andrew Edwrad, DO 10 mL at 03/13/24 0806 sodium chloride 0.9% flush 2.5-10 mL 2.5-10 mL intravenous See admin instructions Andrew Edward DO And sodium chloride 0.9% flush 2.5-10 mL 2.5-10 mL intravenous q12h [facility] Andrew Edward, DO 10 mL at 03/13/24 0806 Current Outpatient Medications Medication Sig Dispense Refill amLODIPine (NORVASC) 2.5 mg tablet Take 1 tablet (2.5 mg total) by mouth once a day. 90 tablet 3 amoxicillin (AMOXIL) 500 mg capsule Take 4 capsules (2,000 mg total) by mouth daily. 1 HOUR PRIOR TO DENTAL APPOINTMENT 16 capsule 4 aspirin 81 mg EC tablet 81 mg daily. atorvastatin (LIPITOR) 40 mg tablet Take 1 tablet (40 mg total) by mouth daily. 90 tablet 3 calcium carbonate-vitamin D3 600 mg(1,500mg) -400 unit per tablet Take 1 tablet by mouth once a day. 90 tablet 3 ciclopirox (PENLAC) 8 % solution Apply over nail and surrounding skin. Apply daily over previous coat. After seven (7) days, may remove with alcohol and continue cycle. 6.6 mL 3 citalopram (CeleXA) 20 mg tablet Take 1 tablet (20 mg total) by mouth daily. 90 tablet 3 ferrous sulfate 325 mg (65 mg iron) tablet Take 1 tablet every other day 60 tablet 11 losartan (COZAAR) 100 mg tablet Take 1 tablet (100 mg total) by mouth daily. 90 tablet 3 multivitamin no.44-vit D3-K 1,000-800 unit-mcg capsule Multivitamins CAPS 1TAB Qday, Refills: 0 Started -Mar-2008 Active mycophenolate (CELLCEPT) 500 mg tablet Take 1 tablet (500 mg total) by mouth 2 times a day. 180 tablet 3 NeoraL 25 mg capsule Take 3 capsules (75 mg total) by mouth 2 times a day. [address] (PROTONIX) 40 mg tablet Take 1 tablet (40 mg total) by mouth once a day. 90 tablet 3 predniSONE (DELTASONE) 5 mg tablet Take 1 tablet (5 mg total) by mouth daily. 90 tablet 3 LAB: Recent Results (from the past 24 hours) POCT I-STAT Lactate W/VBG, interfaced Collection Time: 03/12/24 12:40 PM Result Value Ref Range Sample Type, POCT Venous Lactate, POCT 3.58 (H) 0.9 - 1.7 mmol/L pH, POCT 7.54 (H) 7.31 - 7.41 pH pCO2, POCT 16.1 (L) 41 - 51 mm Hg pO2, POCT 33 (L) 35 - 40 mm Hg Base Excess, POCT -9 (L) 0 - 3 mmol/L HCO3, POCT 13.7 (L) 23 - 28 mmol/L TCO2, POCT 14 (LL) 24 - 29 mmol/L Saturated O2, POCT 75 70 - 75 % Javon's Test, POCT N/A Light Green Top Collection Time: 03/12/24 12:49 PM Specimen: Venous, Peripheral; Blood Result Value Ref Range Extra Tube Hold for add-ons. Lavender Top Collection Time: 03/12/24 12:49 PM Specimen: Venous, Peripheral; Blood Result Value Ref Range Extra Tube Hold for add-ons. Lavender Top Collection Time: 03/12/24 12:49 PM Specimen: Venous, Peripheral; Blood Result Value Ref Range Extra Tube Hold for add-ons. Red Top Collection Time: 03/12/24 12:49 PM Specimen: Venous, Peripheral; Blood Result Value Ref Range Extra Tube Hold for add-ons. Gold Top Collection Time: 03/12/24 12:49 PM Specimen: Venous, Peripheral; Blood Result Value Ref Range Extra Tube Hold for add-ons. Light Blue Top Collection Time: 03/12/24 12:49 PM Specimen: Venous, Peripheral; Blood Result Value Ref Range Extra Tube Hold for add-ons. Price Top Collection Time: 03/12/24 12:49 PM Specimen: Venous, Peripheral; Blood Result Value Ref Range Extra Tube Hold for add-ons. Troponin T, High Sensitivity Collection Time: 03/12/24 12:49 PM Specimen: Venous, Peripheral; Blood Result Value Ref Range Troponin T High Sensitivity 28 (H) <=21 ng/L NT-proBNP Collection Time: 03/12/24 12:49 PM Specimen: Venous, Peripheral; Blood Result Value Ref Range Pro-B-Type Natriuretic Peptide 414 (H) <300 pg/mL CBC Auto Differential Collection Time: 03/12/24 12:49 PM Specimen: Venous, Peripheral; Blood Result Value Ref Range WBC 3.4 (L) 3.8 - 10.8 10*3/uL RBC 5.10 4.20 - 5.80 10*6/uL Hemoglobin 14.9 13.2 - 17.1 g/dL Hematocrit 43.1 38.5 - 50.0 % MCV 84.5 80.0 - 100.0 fL MCH 29.2 27.0 - 33.0 pg MCHC 34.6 32.0 - 36.0 g/dL RDW 12.9 11.0 - 15.0 % Platelets 112 (L) 140 - 400 10*3/uL MPV 11.3 7.5 - 12.5 fL Neutrophil % 82.8 % Immature Grans % 0.6 0.0 - 0.9 % Lymphocyte % 9.6 % Monocyte % 6.7 % Eosinophil % 0.0 % Basophil % 0.3 % Neutrophil # 2.85 1.50 - 7.80 10*3/uL Immature Grans # <0.03 <=0.03 10*3/uL Lymphocyte # 0.30 (L) 0.85 - 3.90 10*3/uL Monocyte # 0.20 0.20 - 0.95 10*3/uL Eosinophil # <0.03 0.02 - 0.50 10*3/uL Basophil # <0.03 0.00 - 0.20 10*3/uL nRBC % 0.0 /100 WBCs nRBC # <0.01 <0.01 10*3/uL CMP - Comprehensive Metabolic Panel Collection Time: 03/12/24 12:49 PM Specimen: Venous, Peripheral; Blood Result Value Ref Range NA 140 135 - 145 mmol/L K 3.5 3.5 - 5.3 mmol/L Cl 105 98 - 107 mmol/L CO2 15 (LL) 22 - 32 mmol/L Anion Gap 20 (H) 5 - 15 Glucose 130 (H) 65 - 99 mg/dL Creatinine 2.18 (H) 0.60 - 1.30 mg/dL Calcium 8.6 8.6 - 10.5 mg/dL Total Protein 6.6 6.0 - 8.0 g/dL Albumin 3.9 3.5 - 5.2 g/dL Bilirubin, Total 0.8 0.2 - 1.2 mg/dL Alkaline Phosphatase 85 35 - 129 U/L AST 42 (H) 10 - 40 U/L ALT 36 10 - 40 U/L BUN 37 (H) 7 - 23 mg/dL eGFR 33 (L) >=60 mL/min/1.73m2 Globulin, Total 2.7 2.1 - 4.2 g/dL A/G Ratio 1.4 (L) 1.5 - 3.0 Smear Review Collection Time: 03/12/24 12:49 PM Specimen: Venous, Peripheral; Blood Result Value Ref Range Platelet Estimate Decreased (A) Adequate RBC Morphology Present (A) Normal, No clinically significant RBC morphology present (ICSH guidelines, 2015). [place] Cells 2+ (A) Not Present Lactic Acid, Plasma Collection Time: 03/12/24 12:49 PM Specimen: Venous, Peripheral; Blood Result Value Ref Range Lactic Acid 4.2 (HH) 0.5 - 1.9 mmol/L Gold Top Collection Time: 03/12/24 12:50 PM Specimen: Venous, Peripheral; Blood Result Value Ref Range Extra Tube Hold for add-ons. Repeat Troponin #1 Collection Time: 03/12/24 2:23 PM Specimen: Venous, Peripheral; Blood Result Value Ref Range Troponin T High Sensitivity 27 (H) <=21 ng/L Magnesium Collection Time: 03/12/24 2:23 PM Specimen: Venous, Peripheral; Blood Result Value Ref Range MG 1.5 (L) 1.6 - 2.4 mg/dL Phosphorus Collection Time: 03/12/24 2:23 PM Specimen: Venous, Peripheral; Blood Result Value Ref Range Phosphorus 2.8 2.5 - 4.5 mg/dL Lactic Acid, Plasma (w/Reflex if >2) Collection Time: 03/12/24 5:15 PM Specimen: Venous, Peripheral; Blood Result Value Ref Range Lactic Acid 2.0 (H) 0.5 - 1.9 mmol/L Lactic Acid, Plasma Collection Time: 03/12/24 8:16 PM Specimen: Venous, Peripheral; Blood Result Value Ref Range Lactic Acid 2.4 (H) 0.5 - 1.9 mmol/L Comprehensive Metabolic Panel Collection Time: 03/13/24 5:22 AM Specimen: Venous, Peripheral; Blood Result Value Ref Range NA 144 135 - 145 mmol/L K 4.0 3.5 - 5.3 mmol/L Cl 111 (H) 98 - 107 mmol/L CO2 20 (L) 22 - 32 mmol/L Anion Gap 13 5 - 15 Glucose 91 65 - 99 mg/dL Creatinine 1.79 (H) 0.60 - 1.30 mg/dL Calcium 8.9 8.6 - 10.5 mg/dL Total Protein 6.7 6.0 - 8.0 g/dL Albumin 3.8 3.5 - 5.2 g/dL Bilirubin, Total 0.6 0.2 - 1.2 mg/dL Alkaline Phosphatase 81 35 - 129 U/L AST 46 (H) 10 - 40 U/L ALT 32 10 - 40 U/L BUN 34 (H) 7 - 23 mg/dL eGFR 41 (L) >=60 mL/min/1.73m2 Globulin, Total 2.9 2.1 - 4.2 g/dL A/G Ratio 1.3 (L) 1.5 - 3.0 CBC Auto Differential Collection Time: 03/13/24 5:22 AM Specimen: Venous, Peripheral; Blood Result Value Ref Range WBC 3.6 (L) 3.8 - 10.8 10*3/uL RBC 5.29 4.20 - 5.80 10*6/uL Hemoglobin 15.5 13.2 - 17.1 g/dL Hematocrit 45.8 38.5 - 50.0 % MCV 86.6 80.0 - 100.0 fL MCH 29.3 27.0 - 33.0 pg MCHC 33.8 32.0 - 36.0 g/dL RDW 13.2 11.0 - 15.0 % Platelets 107 (L) 140 - 400 10*3/uL MPV 10.8 7.5 - 12.5 fL Neutrophil % 61.1 % Immature Grans % 0.3 0.0 - 0.9 % Lymphocyte % 26.2 % Monocyte % 12.4 % Eosinophil % 0.0 % Basophil % 0.0 % Neutrophil # 2.17 1.50 - 7.80 10*3/uL Immature Grans # <0.03 <=0.03 10*3/uL Lymphocyte # 0.90 0.85 - 3.90 10*3/uL Monocyte # 0.40 0.20 - 0.95 10*3/uL Eosinophil # <0.03 0.02 - 0.50 10*3/uL Basophil # <0.03 0.00 - 0.20 10*3/uL nRBC % 0.0 /100 WBCs nRBC # <0.01 <0.01 10*3/uL Magnesium Collection Time: 03/13/24 5:22 AM Specimen: Venous, Peripheral; Blood Result Value Ref Range MG 2.3 1.6 - 2.4 mg/dL Lactic Acid, Plasma Collection Time: 03/13/24 5:22 AM Specimen: Venous, Peripheral; Blood Result Value Ref Range Lactic Acid 1.2 0.5 - 1.9 mmol/L Sodium, Random Urine with Creatinine Collection Time: 03/13/24 8:08 AM Specimen: Voided; Urine Result Value Ref Range Sodium, Urine 114 mmol/L Creatinine, Urine 36 22 - 328 mg/dL Sodium/Creatinine, Urine Ratio 317 (H) 23 - 229 mmol/gmCr IMAGING/OTHER STUDIES: XR Chest Portable 1 View Narrative: COMPARISON: X-ray 11/22/2022. Impression: FINDINGS AND IMPRESSION: No gross focal consolidation, pleural effusion or pneumothorax. Hazy and streaky left basilar/retrocardiac opacities, likely representing atelectasis. Heart size and pulmonary vasculature within normal limits given technique. No acute osseous abnormality. Sternotomy wires. I, Shira Gusman, have reviewed the examination and concur with the findings as reported or so edited. Trainee: Belem Nguyễn If this radiology report contains a blank impression section, it is an incomplete radiology report.Please contact the interpreting radiologist or applicable radiology division as soon as possible toobtain the completed interpretation. Workstation ID: [id number] HOSPITAL PROBLEMS: Principal Problem: COVID Active Problems: Essential hypertension Heart replaced by transplant (HCC) Subclinical hypothyroidism Sarcoidosis Dyslipidemia Acute kidney injury superimposed on CKD (HCC) Gastroesophageal reflux disease without esophagitis Lactic acidosis ASSESSMENT AND PLAN: Assessment & Plan Assessment & Plan COVID Patient has a history of heart failure requiring transplantation 20 years ago and is presenting to hospital from [place] secondary to hypoxic respiratory failure initially requiring [...] streaky left basilar/retrocardiac opacities, likely representing atelectasis; Heartsize and pulmonary vasculature within normal limits given [...] as needed for pain/fever -Strict airborne/contact precautions Essential hypertension - Holding home amlodipine in setting of lactic acidosis - Holding home losartan due to acute kidney injury Heart replaced by transplant ([facility]) 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 Patient is chronically on mycophenolate mofetil, and cyclosporine as well as prednisone 5 mg daily. Patient has been seen by Pulmonology in 2021 with pulmonary function testing at the timeshowing a mild obstructive defect but is not [...] daily x 7-day course in the setting ofactive COVID infection - Cardiology consulted, recommended continued monitoring, no changes to medications -Monitor patient on telemetry -Monitor vitals every 4 hours and CBC daily -Monitor daily weights and strict I's and O's Subclinical hypothyroidism Last reported TSH of 1.086 2 years ago. 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 Patient has been seen by Pulmonology in 2021 with pulmonary function testing at the timeshowing a mild obstructive defect but is not currently on any inhalers Dyslipidemia - Continue home atorvastatin 40 mg daily Acute kidney injury superimposed on CKD (HCC) Patient has a history of chronic kidney disease and follows with Nephrology in the outpatient setting. Patient's baseline creatinine of 1.2-1.4; current creatinine of 2.18. Patient's troponins were trending flat and proBNP of slightly greater than 400. - Holding home losartan - urine electrolytes - Holding off on further fluids with heart failure history - Transplant nephrology consulted - Monitor BMP daily Gastroesophageal reflux disease without esophagitis - Continue home pantoprazole 40 mg daily Lactic acidosis Was noted emergency department to have initial lactic acid of 4.2 which improved to 2.0 with antibiotics and fluids. Patient was given stacked nebulizers in emergency department and at the moment demonstrates no signs of sepsis apart from a very slight leukopenia. -lactic acid resolved GLOBAL PLAN OF CARE: Code Status: DNR/DNI (with non-invasive ventilation only) Maintenance Fluids: none Diet: Diet, Adult Full participation; Cardiac; 50 gm Fat; 2,300 mg Na; 1500 mL Fluid DVT Prophylaxis: heparin subcutaneous I have discussed the care plan with my attending. Chelsey Bagley MD PGY-1 Pager #[phone] 03/13/24 Cosigned by Rico Landa MD at 03/14/2024 2:05 PM EST Associated attestation - Rico Landa MD - 03/14/2024 2:05 PM EST I saw and evaluated the patient. Case discussed with the resident/fellow and I agree with the findings and plan as documented in the resident's/fellow's note. 68-year-old male past medical history of pulmonary sarcoid, heart failure status post heart transplant in 2003 as well as AICD and pacemaker, prior cerebrovascular accident, chronic kidney disease, hypertension, hyperlipidemia who presented to emergency department as a transfer from [facility] secondary to COVID positivity as well as increased oxygen requirement with initial reported requirement ofhigh flow nasal cannula , was subsequently transitioned to low flow nasal canula to RA by this am. Conitnue with covid isolation. Appreciate id input. Ok for remdesivir for 5 days and high dose decadron for now Per ID will dc antibiotics. Continue to trend cr closely. Continue with immunosuppressive meds for cardiac transplant as previous. I spent a total of 55 minutes on the date of encounter, which included: ?? Preparing to see the patient (e.g., review of test results) ?? Performing a medically appropriate exam and/or evaluation ?? Ordering medications, tests, procedures ?? Documenting clinical information in the health record documented in this encounter H&P Notes * Andrew Edward DO - 03/12/2024 8:10 PM EST Images from the original note were not included. HOSPITAL MEDICINE HISTORY AND PHYSICAL A Note About Physician Documentation: If you are the patient referred to in this chart and reviewing your medical notes, please note thatmedical documentation is often written with abbreviations and medical terminology. Physician documentation is typically written by physicians for other physicians to review in order to document what happened, tests that were ordered/interpreted and resulting diagnoses in the most efficient way possible. These notes are made available for patients to review but are not specifically written with patient consumption in mind. Please review your After Visit Summary (AVS) and Discharge Instructions if you have questions. CHIEF COMPLAINT: shortness of breath HISTORY OF PRESENT ILLNESS: Mr. Quintanilla is a 68-year-old male past medical history of pulmonary sarcoid, heart failure status post heart transplant in 2003 as well as AICD and pacemaker, prior cerebrovascular accident, chronic kidney disease, hypertension, hyperlipidemia [facility] as well as increased oxygen requirement with initial reported requirement of high flow nasal cannula.He was seen and evaluated bedside able to follow commands answer questions and provide some history. He said over the past couple of days he is feeling incredibly short of breath and just overall tired; he initially presented to [place] and was found to be grossly COVID positive. He was then placed on nasal cannula and is noted to have increased work of breathing so was placed on high flow. Cath was attempted to be weaned down multiple times at facility but was unable to the patient was transferred over to [facility] for evaluation by pulmonology as well as cardiology. Initial vitals demonstrated blood pressure of 123/82, pulse of 84, respiratory rate of 30, temperature of 90 point degrees Fahrenheit and saturation 100% on high flow. Initial labs demonstrated sodium of 140, potassium 3.5, CO2 of 15, anion gap of 20, BUN of 37, creatinine of 2.18, white count 3.4,hemoglobin of 14.9, platelet count of 112; high-sensitivity troponin of 28 and 27; proBNP of 414, lactic acid of 4.0 improved up to 2.0. Initial chest x-ray showed no gross focal consolidation pleural effusion or pneumothorax; hazy and streaky left basilar/retrocardiac opacities, likely representing atelectasis. Patient was noted to not be tachypneic and had no evidence of respiratory distress and no tachycardia with normal mentation was able to be taken off of high flow nasal cannula at 1650 over to 6 L before being transitioned down to 2 L currently. Cardiology was initially contacted in emergency department did not believe that the patient would benefit from their service but they will continue to monitor on their end. Infectious disease was contacted emergency department with recommendation for isolation protocol aswell as initiation of remdesivir along with home prednisone and mycophenolate and cyclosporine EKG: normal EKG, normal sinus rhythm, nonspecific ST and T waves changes, prolonged QT interval (490 ms relative to 434 last month). REVIEW OF SYSTEMS: 12 point ROS negative except for symptoms mentioned above. 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) History of Combined congestive systolic and diastolic heart failure 2008-10-16 PAST SURGICAL HISTORY: Past Surgical History: Procedure Laterality Date CARDIAC CATHETERIZATION N/A 02/10/2024 Procedure: Coronary angiography; Surgeon: Jerrell Camarillo MD; Location: [facility]; Service: Invasive Cardiology CARDIAC CATHETERIZATION N/A 02/10/2024 Procedure: Left heart cath; Surgeon: Jerrell Camarillo MD; Location: [facility]; Service:Invasive Cardiology MO LAP, VENTRAL HERNIA REPAIR,REDUCIBLE N/A History of Laparoscopy Repair Of Ventral Hernia recurrent MO REMOVAL OF SPERM DUCT(S) N/A History of Surgery Of Male Genitalia Vasectomy MO REPAIR INCISIONAL HERNIA,REDUCIBLE N/A History of Ventral Hernia Repair Twice - 2006 and 2007 MO RIGHT HEART CATH O2 SATURATION & CARDIAC OUTPUT N/A History of Interventional Cardiac Catheterization MO RIGHT HEART CATH O2 SATURATION & CARDIAC OUTPUT N/A History of Interventional Cardiac Catheterization PROCEDURE - HISTORIC N/A History of Pacemaker Placement PROCEDURE - HISTORIC N/A History of Implantable Cardioverter-Defibrillator PROCEDURE - HISTORIC N/A History of Ventricular Assist Device PROCEDURE - HISTORIC N/A History of Cardiac Transplant Procedures MEDICATIONS: amLODIPine (NORVASC) 2.5 mg tablet, Take 1 tablet (2.5 mg total) by mouth once a day. amoxicillin (AMOXIL) 500 mg capsule, Take 4 capsules (2,000 mg total) by mouth daily. 1 HOUR PRIOR TO DENTAL APPOINTMENT aspirin 81 mg EC tablet, 81 mg daily. atorvastatin (LIPITOR) 40 mg tablet, Take 1 tablet (40 mg total) by mouth daily. calcium carbonate-vitamin D3 600 mg(1,500mg) -400 unit per tablet, Take 1 tablet by mouth once a day. ciclopirox (PENLAC) 8 % solution, Apply over nail and surrounding skin. Apply daily over previous coat. After seven (7) days, may remove with alcohol and continue cycle. citalopram (CeleXA) 20 mg tablet, Take 1 tablet (20 mg total) by mouth daily. ferrous sulfate 325 mg (65 mg iron) tablet, Take 1 tablet every other day losartan (COZAAR) 100 mg tablet, Take 1 tablet (100 mg total) by mouth daily. multivitamin no.44-vit D3-K 1,000-800 unit-mcg capsule, Multivitamins CAPS 1TAB Qday, Refills: 0 Started -Mar-2008 Active mycophenolate (CELLCEPT) 500 mg tablet, Take 1 tablet (500 mg total) by mouth 2 times a day. NeoraL 25 mg capsule, Take 3 capsules (75 mg total) by mouth 2 times a day. pantoprazole DR (PROTONIX) 40 mg tablet, Take 1 tablet (40 mg total) by mouth once a day. predniSONE (DELTASONE) 5 mg tablet, Take 1 tablet (5 mg total) by mouth daily. ALLERGIES: Spironolactone SOCIAL HISTORY: Social History Tobacco Use Smoking status: Never Smokeless tobacco: Never Tobacco comments: : Substance Use Topics Alcohol use: No Social Documentation Occupation: Barreer for [employer] Marital History - Four daughters (One passed from a brain tumor), 4 granddaughters ([phone]) Recovering Alcoholic Quit 1995 FAMILY HISTORY: Family History Problem Relation Age of Onset Other Other Denied Family history of Thyroid Disorder Other Other Denied Family history of Diabetes Mellitus Other Other Denied Family history of Hip Fracture Other Other Denied Family history of Osteoporosis Other Other Family history of Brain Cancer Daughter Other Other Family history of Lung Cancer Maternal Aunt - smoker Other Other Family history of Coronary Artery Disease Father had CABG Other Other Denied Family history of Stroke Syndrome Other Other Denied Family history of Sarcoidosis Other Mother Family History of malignant neoplasm Objective VITAL SIGNS FOR PAST 24 Hours ([High] [Low] (Last Recorded Value)): Temp: [36.7 ??C (98 ??F)-36.8 ??C (98.3 ??F)] 36.7 ??C (98 ??F) Heart Rate: [74-95] 79 Resp: [15-30] 20 BP: (123-161)/(78-111) 128/78 SpO2: [95 %-100 %] 97 % Set FiO2 (O2%): [21 %-40 %] 40 % PHYSICAL EXAM: GENERAL: No apparent distress. Well nourished, well groomed. EYES / ENT: Pupils equal, round, and react to light. Extraocular movements intact. Conjunctivae non-ictereric. Neck supple. Moist mucous membranes. LYMPHATIC: No head/neck lymphadenopathy RESPIRATORY: Very slight sentence fragmentation but no tachypnea or evidence of accessory muscle usage. Patient has diffusely decreased breath sounds in anterior and posterior lung reese with no stridor no wheezing or rhonchi or crackles. CARDIOVASCULAR: Regular rate and regular rhythm, normal S1/S2. No murmurs or rub. SKIN: No rash, lesions or ecchymoses. ABDOMINAL: Soft, nontender, nondistended. No guarding, rigidity, or rebound. Normoactive bowel sounds. : No CVA tenderness MUSCULOSKELETAL: No clubbing or cyanosis. No joint swelling, tenderness, effusions. No LE edema. NEUROLOGIC: Alert and oriented x 3. Extraocular muscles grossly intact. Patient grossly able to move bilateral upper lower extremities without difficulty. No noteworthy deficit sensation to light touch in bilateral upper or lower extremities. PSYCH: Normal mood and affect. LABS: Recent Results (from the past 48 hours) POCT I-STAT Lactate W/VBG, interfaced Collection Time: 03/12/24 12:40 PM Result Value Ref Range Sample Type, POCT Venous Lactate, POCT 3.58 (H) 0.9 - 1.7 mmol/L pH, POCT 7.54 (H) 7.31 - 7.41 pH pCO2, POCT 16.1 (L) 41 - 51 mm Hg pO2, POCT 33 (L) 35 - 40 mm Hg Base Excess, POCT -9 (L) 0 - 3 mmol/L HCO3, POCT 13.7 (L) 23 - 28 mmol/L TCO2, POCT 14 (LL) 24 - 29 mmol/L Saturated O2, POCT 75 70 - 75 % Javon's Test, POCT N/A Light Green Top Collection Time: 03/12/24 12:49 PM Specimen: Venous, Peripheral; Blood Result Value Ref Range Extra Tube Hold for add-ons. Lavender Top Collection Time: 03/12/24 12:49 PM Specimen: Venous, Peripheral; Blood Result Value Ref Range Extra Tube Hold for add-ons. Lavender Top Collection Time: 03/12/24 12:49 PM Specimen: Venous, Peripheral; Blood Result Value Ref Range Extra Tube Hold for add-ons. Red Top Collection Time: 03/12/24 12:49 PM Specimen: Venous, Peripheral; Blood Result Value Ref Range Extra Tube Hold for add-ons. Gold Top Collection Time: 03/12/24 12:49 PM Specimen: Venous, Peripheral; Blood Result Value Ref Range Extra Tube Hold for add-ons. Light Blue Top Collection Time: 03/12/24 12:49 PM Specimen: Venous, Peripheral; Blood Result Value Ref Range Extra Tube Hold for add-ons. Price Top Collection Time: 03/12/24 12:49 PM Specimen: Venous, Peripheral; Blood Result Value Ref Range Extra Tube Hold for add-ons. Troponin T, High Sensitivity Collection Time: 03/12/24 12:49 PM Specimen: Venous, Peripheral; Blood Result Value Ref Range Troponin T High Sensitivity 28 (H) <=21 ng/L NT-proBNP Collection Time: 03/12/24 12:49 PM Specimen: Venous, Peripheral; Blood Result Value Ref Range Pro-B-Type Natriuretic Peptide 414 (H) <300 pg/mL CBC Auto Differential Collection Time: 03/12/24 12:49 PM Specimen: Venous, Peripheral; Blood Result Value Ref Range WBC 3.4 (L) 3.8 - 10.8 10*3/uL RBC 5.10 4.20 - 5.80 10*6/uL Hemoglobin 14.9 13.2 - 17.1 g/dL Hematocrit 43.1 38.5 - 50.0 % MCV 84.5 80.0 - 100.0 fL MCH 29.2 27.0 - 33.0 pg MCHC 34.6 32.0 - 36.0 g/dL RDW 12.9 11.0 - 15.0 % Platelets 112 (L) 140 - 400 10*3/uL MPV 11.3 7.5 - 12.5 fL Neutrophil % 82.8 % Immature Grans % 0.6 0.0 - 0.9 % Lymphocyte % 9.6 % Monocyte % 6.7 % Eosinophil % 0.0 % Basophil % 0.3 % Neutrophil # 2.85 1.50 - 7.80 10*3/uL Immature Grans # <0.03 <=0.03 10*3/uL Lymphocyte # 0.30 (L) 0.85 - 3.90 10*3/uL Monocyte # 0.20 0.20 - 0.95 10*3/uL Eosinophil # <0.03 0.02 - 0.50 10*3/uL Basophil # <0.03 0.00 - 0.20 10*3/uL nRBC % 0.0 /100 WBCs nRBC # <0.01 <0.01 10*3/uL CMP - Comprehensive Metabolic Panel Collection Time: 03/12/24 12:49 PM Specimen: Venous, Peripheral; Blood Result Value Ref Range NA 140 135 - 145 mmol/L K 3.5 3.5 - 5.3 mmol/L Cl 105 98 - 107 mmol/L CO2 15 (LL) 22 - 32 mmol/L Anion Gap 20 (H) 5 - 15 Glucose 130 (H) 65 - 99 mg/dL Creatinine 2.18 (H) 0.60 - 1.30 mg/dL Calcium 8.6 8.6 - 10.5 mg/dL Total Protein 6.6 6.0 - 8.0 g/dL Albumin 3.9 3.5 - 5.2 g/dL Bilirubin, Total 0.8 0.2 - 1.2 mg/dL Alkaline Phosphatase 85 35 - 129 U/L AST 42 (H) 10 - 40 U/L ALT 36 10 - 40 U/L BUN 37 (H) 7 - 23 mg/dL eGFR 33 (L) >=60 mL/min/1.73m2 Globulin, Total 2.7 2.1 - 4.2 g/dL A/G Ratio 1.4 (L) 1.5 - 3.0 Smear Review Collection Time: 03/12/24 12:49 PM Specimen: Venous, Peripheral; Blood Result Value Ref Range Platelet Estimate Decreased (A) Adequate RBC Morphology Present (A) Normal, No clinically significant RBC morphology present (ICSH guidelines, 2015). Kelly Cells 2+ (A) Not Present Lactic Acid, Plasma Collection Time: 03/12/24 12:49 PM Specimen: Venous, Peripheral; Blood Result Value Ref Range Lactic Acid 4.2 (HH) 0.5 - 1.9 mmol/L Gold Top Collection Time: 03/12/24 12:50 PM Specimen: Venous, Peripheral; Blood Result Value Ref Range Extra Tube Hold for add-ons. Repeat Troponin #1 Collection Time: 03/12/24 2:23 PM Specimen: Venous, Peripheral; Blood Result Value Ref Range Troponin T High Sensitivity 27 (H) <=21 ng/L Lactic Acid, Plasma (w/Reflex if >2) Collection Time: 03/12/24 5:15 PM Specimen: Venous, Peripheral; Blood Result Value Ref Range Lactic Acid 2.0 (H) 0.5 - 1.9 mmol/L Lactic Acid, Plasma Collection Time: 03/12/24 8:16 PM Specimen: Venous, Peripheral; Blood Result Value Ref Range Lactic Acid 2.4 (H) 0.5 - 1.9 mmol/L IMAGING /OTHER STUDIES: XR Chest Portable 1 View Result Date: 03/12/2024 FINDINGS AND IMPRESSION: No gross focal consolidation, pleural effusion or pneumothorax. Hazy and streaky left basilar/retrocardiac opacities, likely representing atelectasis. Heart size and pulmonary vasculature within normal limits given technique. No acute osseous abnormality. Sternotomy wires. I, Shira Gusman, have reviewed the examination and concur with the findings as reported or so edited. Trainee: Belem Nguyễn If this radiology report contains a blank impression section, it is an incomplete radiology report. Please contact the interpreting radiologist or applicable radiology division as soon as possible to obtain the completed interpretation. Workstation ID: [id number] HOSPITAL PROBLEMS: Principal Problem: COVID Active Problems: Essential hypertension Heart replaced by transplant ([facility]) Subclinical hypothyroidism Sarcoidosis Dyslipidemia Acute kidney injury superimposed on CKD ([facility]) Gastroesophageal reflux disease without esophagitis Lactic acidosis Assessment & Plan * COVID Assessment & Plan Patient has a history of heart failure requiring transplantation 20 years ago and is presenting to hospital from [place] secondary to hypoxic respiratory failure initially requiring [...] streaky left basilar/retrocardiac opacities, likely representing atelectasis; Heartsize and pulmonary vasculature within normal limits given technique; No acute osseous abnormality; Sternotomy wires. Patient's high sensitivity troponins were slightly elevated from 28 to 27 in emergency department. Patient's initial proBNP was 414 and on my evaluation he demonstrated no evidence of fluid overload. Patient received a dose of ceftriaxone as well as doxycycline prior to transfer over to our facility. -Continue remdesivir - Transition patient's prednisone to dexamethasone 6 mg daily x 7 days - Transplant Infectious Disease consulted - Initiate antibiotic therapy with ceftriaxone and doxycycline (given slightly prolonged QTC on EKG) -Sputum culture -Continuous pulse oximetry -Guaifenesin as needed for cough -Acetaminophen as needed for pain/fever -Strict airborne/contact precautions Lactic acidosis Assessment & Plan Was noted emergency department to have initial lactic acid of 4.2 which improved to 2.0 with antibiotics and fluids. Patient was given stacked nebulizers in emergency department and at the moment demonstrates no signs of sepsis apart from a very slight leukopenia. -Trend lactic acid -Transplant ID consult with antibiotics as above Gastroesophageal reflux disease without esophagitis Assessment & Plan - Continue home pantoprazole 40 mg daily Acute kidney injury superimposed on CKD ([facility]) Assessment & Plan Patient has a history of chronic kidney disease and follows with Nephrology in the outpatient setting. Patient's baseline creatinine of 1.2-1.4; current creatinine of 2.18. Patient's troponins were trending flat and proBNP of slightly greater than 400. 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 Patient has been seen by Pulmonology in 2021 with pulmonary function testing at the timeshowing a mild obstructive defect but is not currently on any inhalers - Initiate nebulizers as above - Monitor patient on telemetry and pulse oximetry - Monitor daily weights and strict ins and outs - Pulmonology consult - Cardiology consult Subclinical hypothyroidism Assessment & Plan Last reported TSH of 1.086 2 years ago. 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 Patient is chronically on mycophenolate mofetil, and cyclosporine as well as prednisone 5 mg daily. Patient has been seen by Pulmonology in 2021 with pulmonary function testing at the timeshowing a mild obstructive defect but is not [...] all secondary to COVID and associated pneumonia Transplant infectious diseases was consulted in emergency department recommendation for continuation of home immunosuppressive medication as well as remdesivir approval. - Cardiology consult as above -Monitor patient on telemetry -Monitor patient on pulse oximetry -Monitor vitals every 4 hours and CBC daily -Monitor daily weights and strict I's and O's -Continue home mycophenolate mofetil 500 mg twice daily, cyclosporine 75 mg twice daily -Transition home prednisone 5 mg daily to dexamethasone 6 mg daily x 7-day course in the setting ofactive COVID infection -Transplant Infectious disease consult -Transplant nephrology consult Essential hypertension Assessment & Plan - Holding home amlodipine in setting of lactic acidosis - Holding home losartan due to acute kidney injury GLOBAL PLAN OF CARE: Code Status: DNR/DNI (with non-invasive ventilation only) Nutrition: Diet, Adult Full participation; Cardiac; 50 gm Fat; 2,300 mg Na; 1500 mL Fluid DVT prophylaxis: heparin subcutaneous I spent a total of 75 minutes on the date of encounter, which included: ?? Preparing to see the patient (e.g., review of test results) ?? Obtaining and/or reviewing separately obtained history ?? Performing a medically appropriate exam and/or evaluation ?? Counseling and educating the patient/family/caregiver ?? Ordering medications, tests, procedures ?? Referring and communicating with other healthcare professionals, when not separately reported ?? Documenting clinical information in the health record ?? Independently interpreting results (not separately reported) and communicating results to the patient/family/caregiver ?? Care coordination not separately reported ?? Documented time does not include time for procedures performed during this patient encounter Andrew Edward DO , FACP 03/12/24 9:52 PM Electronic Signature Adriel Quinatnilla : 1955 CSN: [id number] documented in this encounter Consult Notes * Renata Levy MD - 03/13/2024 10:19 AM ESTAssociated Order(s): IP CONSULT TO INFECTIOUS DISEASES Transplant Infectious Disease Consult Date of admission: 03/12/2024 12:37 PM Consult requested by: Attending Provider: Rico Landa MD [phone] Reason for consult: COVID infection in pt with a heart transplant History of present illness: Wagner Quintanilla is a 68 y.o. 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 The patient reported extreme fatigue over the past week with some improvement on Tuesday and significant progression of his shortness of breath on Tuesday [facility] He denies any fever/chills, no sore throat, no cough, no chest pain, no GI symptoms including nausea, vomiting, abdominal pain, diarrhea. He denies any recent sick contacts. He lives with a roommate who has not been sick. At [facility] the patient required high flow nasal cannula to support his oxygen requirement. He was found to be COVID-positive on 03/12/2024 and was subsequently transferred to [facility] for further management with remdesivir/dexamethasone. He reports having a chest x-ray there and no CT chest. His chest x-ray per his report was clear there. Here the patient has been afebrile and hemodynamically stable. He has no leukocytosis (WBC on admission was 3.4 and it is 3.6 today). His creatinine has down trended from 2.18 to 1.79 today. LFTs with only mild elevation of the AST to 42, up to 46 today. His chest x-ray from yesterday does not reveal any infectious pathology. The patient was started on remdesivir and dexamethasone upon arrival on03/12. He was additionally started on doxycycline due to additionally cover for atypical pathogens given his immunocompromise state. Of note, the patient is s/p cardiac transplant in 2003 ([facility]) for which he is on CellCept and cyclosporine as well as prednisone. He is being followed by cardiology here at [facility] (Dr Rothman). He is not on any antimicrobial prophylaxis. He denies any recent changes to his meds for his cardiac transplant. Per his cardiology team's note: He recently had his yearly nuclear stress test showing a mild,partially reversible defect in the inferior wall. This is a new finding when compared to all of hisprevious stress tests. Thus he was referred for coronary angiography. He underwent the coronary angiography on 02/09 without any findings of angiographically significant coronary artery disease or cardiac allograft vasculopathy and with a normal left ventricular end-diastolic pressure. He has his next heart transplant clinic appointment on 03/22/2024. 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 Water source: City water Raw food: No Review of systems: All other components of the review of systems are negative, except those described in the history of present illness. 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) History of Combined congestive systolic and diastolic heart failure 2008-10-16 Past Surgical History: Procedure Laterality Date CARDIAC CATHETERIZATION N/A 02/10/2024 Procedure: Coronary angiography; Surgeon: Jerrell Camarillo MD; Location: [facility] Vasc Int Lab; Service: Invasive Cardiology CARDIAC CATHETERIZATION N/A 02/10/2024 Procedure: Left heart cath; Surgeon: Jerrell Camarillo MD; Location: [facility] Vasc Int Lab; Service:Invasive Cardiology MO LAP, VENTRAL HERNIA REPAIR,REDUCIBLE N/A History of Laparoscopy Repair Of Ventral Hernia recurrent MO REMOVAL OF SPERM DUCT(S) N/A History of Surgery Of Male Genitalia Vasectomy MO REPAIR INCISIONAL HERNIA,REDUCIBLE N/A History of Ventral Hernia Repair Twice - 2006 and 2007 MO RIGHT HEART CATH O2 SATURATION & CARDIAC OUTPUT N/A History of Interventional Cardiac Catheterization MO RIGHT HEART CATH O2 SATURATION & CARDIAC OUTPUT N/A History of Interventional Cardiac Catheterization PROCEDURE - HISTORIC N/A History of Pacemaker Placement PROCEDURE - HISTORIC N/A History of Implantable Cardioverter-Defibrillator PROCEDURE - HISTORIC N/A History of Ventricular Assist Device PROCEDURE - HISTORIC N/A History of Cardiac Transplant Procedures Social History Tobacco Use Smoking status: Never Smokeless tobacco: Never Tobacco comments: : Substance Use Topics Alcohol use: No Drug use: No Family History Problem Relation Age of Onset Other Other Denied Family history of Thyroid Disorder Other Other Denied Family history of Diabetes Mellitus Other Other Denied Family history of Hip Fracture Other Other Denied Family history of Osteoporosis Other Other Family history of Brain Cancer Daughter Other Other Family history of Lung Cancer Maternal Aunt - smoker Other Other Family history of Coronary Artery Disease Father had CABG Other Other Denied Family history of Stroke Syndrome Other Other Denied Family history of Sarcoidosis Other Mother Family History of malignant neoplasm Medications: aspirin, 81 mg, oral, Daily atorvastatin, 40 mg, oral, Daily calcium carbonate-vitamin D3, 1 tablet, oral, Daily cefTRIAXone, 1 g, intravenous, q24h ELENA citalopram, 20 mg, oral, Daily cycloSPORINE modified, 75 mg, oral, 2x daily dexAMETHasone, 6 mg, oral, Daily doxycycline monohydrate, 100 mg, oral, q12h ELENA ferrous sulfate, 325 mg, oral, Daily heparin, 5,000 Units, subcutaneous, q8h ELENA mycophenolate mofetil, 500 mg, oral, q12h ELENA pantoprazole DR, 40 mg, oral, Daily remdesivir, 100 mg, intravenous, q24h And sodium chloride, 30 mL, intravenous, q24h sodium chloride, 2.5-10 mL, intravenous, See admin instructions And sodium chloride, 2.5-10 mL, intravenous, q12h ELENA sodium chloride, 2.5-10 mL, intravenous, See admin instructions And sodium chloride, 2.5-10 mL, intravenous, q12h ELENA Allergies: Allergies Allergen Reactions Spironolactone Breast enlargement Physical Exam: height is 1.778 m (5' 10 ) and weight is 83.9 kg (185 lb). His oral temperature is 36.6 ??C (97.9 ??F). His blood pressure is 118/75 and his pulse is 89. His respiration is 27 (abnormal) and oxygen saturation is 96%. General appearance: no obvious distress, well nourished HEENT: normocephalic, atraumatic, no icterus, no conjunctival erythema, moist mucous membranes, no oral lesions Neck: supple, no lymphadenopathy, no meningismus CVS: regular rate and rhythm, no murmurs, S1+S2 Lungs: clear to auscultation bilaterally, no wheezing or rhonchi Abdomen: soft, non-distended, non-tender, bowel sounds audible, no palpable hepatosplenomegaly MSK: no obvious abnormality, no major joint effusion Extremities: no edema or swelling Skin: no obvious rashes or abnormal lesions Neuro: alert and oriented, no focal deficits Psych: appropriate mood and affect : normal genitalia Laboratory data: Results from last 7 days Lab Units 03/13/24 0522 03/12/24 1249 WBC 10*3/uL 3.6* 3.4* HEMOGLOBIN g/dL 15.5 14.9 HEMATOCRIT % 45.8 43.1 PLATELETS 10*3/uL 107* 112* Results from last 7 days Lab Units 03/13/24 0522 03/12/24 1249 SODIUM mmol/L 144 140 POTASSIUM mmol/L 4.0 3.5 CHLORIDE mmol/L 111* 105 CARBON DIOXIDE mmol/L 20* 15* BUN mg/dL 34* 37* CREATININE mg/dL 1.79* 2.18* TOTAL BILIRUBIN mg/dL 0.6 0.8 ALKALINE PHOSPHATASE U/L 81 85 ALT U/L 32 36 AST U/L 46* 42* GLUCOSE mg/dL 91 130* Radiology: We have reviewed all imaging data available during this hospitalization independently. CXR (03/12): No gross focal consolidation, pleural effusion or pneumothorax. Hazy and streaky left basilar/retrocardiac opacities, likely representing atelectasis. Summary: Wagner Quintanilla is a 68 y.o. male with heart transplant and Covid Impression: COVID B 19- Acute hypoxic respiratory failure due to COVID infection, now improved s/p 2 doses of remdesivir and 1 dose of dexamethasone Heart Transplant for heart failure due to cardiac sarcoidosis on mycophenolate, cyclosporine, and prednisone Immunosuppressed The patient's oxygen requirement has resolved. He denies any shortness of breath at this time. He remains afebrile and hemodynamically stable otherwise. He has not developed any leukocytosis at this time. He is chest x-ray does not indicate any focal infectious pathology. Given the positive COVID test that would justify his symptoms, as well as his rapid improvement here and no imaging findings of pneumonia, his acute respiratory failure is most likely due to his COVID infection, making other bacterial or viral etiology less likely at this time. Recommendations: Please complete a 5-day course of remdesivir. You can give the dose in the morning so he might be able to go home early after dose on Mar 16. Please continue with dexamethasone while the patient is in the hospital due to his prior oxygen requirement. He can be continue high dose for 10 days or be switched to his home prednisone dose upon discharge. We would recommend discontinuing any additional antibiotics at this time, given the aforementioned considerations about the patient's pathology/etiology of symptoms. The plan of care was discussed with the primary hospital team. Thank you for this consultation. ID will sign off at this time. Please don't hesitate to call the Transplant ID team for questions or any acute changes in patient's clinical condition. Jessica Bone MD Infectious Diseases Fellow I saw and evaluated the patient, participating in the lee portions of the service. I reviewed and edited the fellow???s note. Renata Levy MD [address] [id number] Office [phone] Wagner Quintanilla : 1955 CSN: [id number] documented in this encounter ED Notes * Delmy Ocampo MD - 03/12/2024 12:29 PM EST History HPI: No chief complaint on file. HPI This is a 68-year-old male with history of sarcoidosis, heart failure with a heart transplant in 2003 at [facility] who is on immune suppression, CVA, defibrillator and pacer in place who is being sent over from [facility] for increasing oxygen requirement. Patient states that he has been feeling short of breath for the last few days and just feeling tired overall he presented to [facility] and was found to be COVID-positive. There he was on nasal cannula and was having oxygenation saturations greater than 95% had increased work of breathing was placed on high flow. High flow was tried to be weaned multiple times but it was not able to be taken off because the patient's respiratory rate go back up he never had an ED oxygenation. Patient states overall feels unwell. He denies any nausea vomiting headaches blurry vision chest pain or swelling in his legs. 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) History of Combined congestive systolic and diastolic heart failure 2008-10-16 Past Surgical History: Procedure Laterality Date CARDIAC CATHETERIZATION N/A 02/10/2024 Procedure: Coronary angiography; Surgeon: Jerrell Camarillo MD; Location: [facility] V[facility] Int [facility]; Service: Invasive Cardiology CARDIAC CATHETERIZATION N/A 02/10/2024 Procedure: Left heart cath; Surgeon: Jerrell Camarillo MD; Location: [facility] Vasc Int Lab; Service:Invasive Cardiology MO LAP, VENTRAL HERNIA REPAIR,REDUCIBLE N/A History of Laparoscopy Repair Of Ventral Hernia recurrent MO REMOVAL OF SPERM DUCT(S) N/A History of Surgery Of Male Genitalia Vasectomy MO REPAIR INCISIONAL HERNIA,REDUCIBLE N/A History of Ventral Hernia Repair Twice - 2006 and 2007 MO RIGHT HEART CATH O2 SATURATION & CARDIAC OUTPUT N/A History of Interventional Cardiac Catheterization MO RIGHT HEART CATH O2 SATURATION & CARDIAC OUTPUT N/A History of Interventional Cardiac Catheterization PROCEDURE - HISTORIC N/A History of Pacemaker Placement PROCEDURE - HISTORIC N/A History of Implantable Cardioverter-Defibrillator PROCEDURE - HISTORIC N/A History of Ventricular Assist Device PROCEDURE - HISTORIC N/A History of Cardiac Transplant Procedures Family History Problem Relation Age of Onset Other Other Denied Family history of Thyroid Disorder Other Other Denied Family history of Diabetes Mellitus Other Other Denied Family history of Hip Fracture Other Other Denied Family history of Osteoporosis Other Other Family history of Brain Cancer Daughter Other Other Family history of Lung Cancer Maternal Aunt - smoker Other Other Family history of Coronary Artery Disease Father had CABG Other Other Denied Family history of Stroke Syndrome Other Other Denied Family history of Sarcoidosis Other Mother Family History of malignant neoplasm Social History Tobacco Use Smoking status: Never Smokeless tobacco: Never Tobacco comments: : Substance Use Topics Alcohol use: No Drug use: No Sexuality and Gender Identity Sexuality Patient's sexual orientation: Straight Legal Information Legal first name: Wagner Legal last name: Dwight Legal sex: Male Gender Identity Patient's gender identity: Male Patient's sex assigned at : Male Organ Inventory Organs the patient currently has: Organs present at or expected at to develop: Organs surgically enhanced or constructed: Organs hormonally enhanced or developed: breasts cervix ovaries uterus vagina penis prostate testes Review of Systems REVIEW OF SYSTEMS: See HPI Physical Exam Physical Exam ED Triage Vitals Temp Pulse Resp BP SpO2 -- -- -- -- -- Temp src Heart Rate Source Patient Position BP Location Set FiO2 (O2%) -- -- -- -- -- Physical Exam Vitals and nursing note reviewed. Constitutional: General: He is not in acute distress. Appearance: He is well-developed. He is not ill-appearing or toxic-appearing. HENT: Head: Normocephalic and atraumatic. Nose: Nose normal. No congestion. Mouth/Throat: Mouth: Mucous membranes are moist. Pharynx: Oropharynx is clear. Eyes: Extraocular Movements: Extraocular movements intact. Conjunctiva/sclera: Conjunctivae normal. Pupils: Pupils are equal, round, and reactive to light. Neck: Vascular: No JVD. Cardiovascular: Rate and Rhythm: Normal rate and regular rhythm. Pulses: Normal pulses. Pulmonary: Effort: Pulmonary effort is normal. No respiratory distress. Breath sounds: Normal breath sounds. No stridor. No wheezing or rhonchi. Comments: Currently on high flow Abdominal: General: There is no distension. Palpations: Abdomen is soft. Tenderness: There is no abdominal tenderness. There is no guarding or rebound. Musculoskeletal: General: No deformity or signs of injury. Normal range of motion. Cervical back: Normal range of motion. Right lower leg: No edema. Left lower leg: No edema. Skin: General: Skin is warm and dry. Capillary Refill: Capillary refill takes less than 2 seconds. Coloration: Skin is not jaundiced or pale. Findings: No rash. Neurological: General: No focal deficit present. Mental Status: He is alert and oriented to person, place, and time. Cranial Nerves: No cranial nerve deficit. Gait: Gait normal. Psychiatric: Mood and Affect: Mood normal. Behavior: Behavior normal. Medical Decision Making and ED Course Amount and/or Complexity of Data Reviewed: Type of external notes reviewed: transferring ED Details: Transferring ED hospital records reviewed for work-up Discussion with other providers: Care was discussed with the following providers: [employer] MACHINE OPERATOR (to review case and request evaluation). Critical Care: Critical care time (minutes): 32 Critical care time exclusive of teaching time, separately billable procedures, and treating other patients Patient critically ill with the following condition(s): COVID+, acute hypoxic respiratory failure Critical care was time spent personally by me on the following activities: Initial history & physical exam, discussions with consultants, documenting the case, obtaining history from patient or surrogate, ordering and review of lab/imaging studies, re-evaluation of patient's condition, review of old charts, pulse oximetry, ordering/performing treatments/interventions, medical decision making and development of treatment plan Date of Service: 03/13/2024 2:05 PM This is a 68-year-old male with history of sarcoidosis, heart failure with a heart transplant in 2003 at [facility] who is on immune suppression, CVA, defibrillator and pacer in place who is being sent over from [facility] for increasing oxygen requirement. Patient states that he has been feeling short of breath for the last few days and just feeling tired overall he presented to [facility] and was found to be COVID-positive. There he was on nasal cannula and was having oxygenation saturations greater than 95% had increased work of breathing was placed on high flow. High flow was tried to be weaned multiple times but it was not able to be taken off because the patient's respiratory rate go back up he never had an ED oxygenation. Patient states overall feels unwell. He denies any nausea vomiting headaches blurry vision chest pain or swelling in his legs. This is a COVID-positive patient who is immune suppressed to at this time remains on high flow and is otherwise well-appearing and hemodynamically stable he does not have any changes in his lung examhe is clear to auscultation. Will plan to consult transplant ID with concern for necessity of remdesivir given that he is a heart transplant patient with COVID requiring oxygen at this time. Overall anticipate patient will need to go to the ICU unless he is reeval and able to come off of his high flow requirements. Will plan to repeat his labs here for a baseline and reassess. 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 Patient states over the past few days patient has feeling unwell mucousy tired and fatigued. He also notes increasing dyspnea on exertion. He went to [facility] where they diagnosed him with COVID-positive, gave him doxycycline, ceftriaxone, along with a DuoNeb. She was also given hydrocortisone, 2 L of fluid. Patient was transferred here for further management. On exam patient is on high flow nasal cannula satting high percent. Is not tachypneic. Regular rateand rhythm. Lungs are clear to auscultation. No lower extremity edema. Plan to repeat labs and chest x-ray. Patient will require an admission. Will also on remdesivir andhome mycophenolate and cyclosporine was ordered. [SJ] 1714 FINDINGS AND IMPRESSION: No gross focal consolidation, pleural effusion or pneumothorax. Hazy and streaky left basilar/retrocardiac opacities, likely representing atelectasis. Heart size and pulmonary vasculature within normal limits given technique. No acute osseous abnormality. Sternotomy wires. [MB] 1714 Pt got doxy and Ctx at OSH [MB] ED Course User Index [MB] Jermaine Henderson MD [SJ] MD Wagner Goldstein : 1955 CSN: [id number] Jermaine Henderson MD Resident 03/13/24 1302 Attending to Resident/Fellow - I saw and evaluated the patient. I discussed the case with the resident(s)/fellow(s) and agree with the findings and plan as documented by the resident(s)/fellow(s). Lee elements, clarifications and/or exceptions are noted by me. Wagner Quintanilla : 1955 CSN: [id number] Delmy Ocampo MD 03/14/241954 documented in this encounter Miscellaneous Notes * Plan of Care - Mattie Schulz - 03/16/2024 11:42 AM EST Case Management Discharge note: Pertinent Clinical and medical clearance : Medically cleared to DC Home - no CM needs . Pt has a ride home. Final Discharge Plan: Home Communicated with HCP/Caregiver Nurse to Nurse Handoff information (if applicable): Other (including expected out of pocket costs for patient): * Assessment & Plan Note - Chelsey Bagley MD - 03/15/2024 9:53 AM EST Associated Problem(s): COVID Patient has a history of heart failure requiring transplantation 20 years ago and is presenting to hospital from [place] secondary to hypoxic respiratory failure initially requiring [...] streaky left basilar/retrocardiac opacities, likely representing atelectasis; Heartsize and pulmonary vasculature within normal limits given [...] as needed for pain/fever -Strict airborne/contact precautions * Assessment & Plan Note - Chelsey Bagley MD - 03/15/2024 9:53 AM EST Associated Problem(s): Essential hypertension - Held home amlodipine in setting of lactic acidosis - Held home losartan due to acute kidney injury - Resume as pressures allow * Assessment & Plan Note - Chelsey Bagley MD - 03/15/2024 9:53 AM EST Associated Problem(s): Heart replaced by transplant (HCC) 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 Patient is chronically on mycophenolate mofetil, and cyclosporine as well as prednisone 5 mg daily. 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 Patient has been seen by Pulmonology in 2021 with pulmonary function testing at the timeshowing a mild obstructive defect but is not currently on any inhalers * Assessment & Plan Note - Chelsey Bagley MD - 03/15/2024 9:53 AM EST Associated Problem(s): Dyslipidemia - Continue home atorvastatin 40 mg daily * Assessment & Plan Note - Chelsey Bagley MD - 03/15/2024 9:53 AM EST Associated Problem(s): Acute kidney injury superimposed on CKD (HCC) Patient has a history of chronic kidney [...] CKD - Transplant nephrology consulted - Monitor BMP daily * Assessment & Plan Note - Chelsey Bagley MD - 03/15/2024 9:53 AM EST Associated Problem(s): Gastroesophageal reflux disease without esophagitis - Continue home pantoprazole 40 mg daily * Assessment & Plan Note - Chelsey Baglye MD - 03/14/2024 10:11 AM EST Associated Problem(s): COVID Patient has a history of heart failure requiring transplantation 20 years ago and is presenting to hospital from [place] secondary to hypoxic respiratory failure initially requiring [...] streaky left basilar/retrocardiac opacities, likely representing atelectasis; Heartsize and pulmonary vasculature within normal limits given [...] as needed for pain/fever -Strict airborne/contact precautions * Assessment & Plan Note - Chelsey Bagley MD - 03/14/2024 10:11 AM EST Associated Problem(s): Essential hypertension - Holding home amlodipine in setting of lactic acidosis - Holding home losartan due to acute kidney injury * Assessment & Plan Note - Chelsey Bagley MD - 03/14/2024 10:11 AM EST Associated Problem(s): Heart replaced by transplant (HCC) 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 Patient is chronically on mycophenolate mofetil, and cyclosporine as well as prednisone 5 mg daily. Patient has been seen by Pulmonology in 2021 with pulmonary function testing at the timeshowing a mild obstructive defect but is not [...] daily x 7-day course in the setting ofactive COVID infection - Cardiology consulted, recommended continued monitoring, no changes to medications -Monitor patient on telemetry -Monitor vitals every 4 hours and CBC daily -Monitor daily weights and strict I's and O's * Assessment & Plan Note - Chelsey Bagley MD - 03/14/2024 10:11 AM EST Associated Problem(s): Subclinical hypothyroidism Last reported TSH of 1.086 2 years ago. 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 Patient has been seen by Pulmonology in 2021 with pulmonary function testing at the timeshowing a mild obstructive defect but is not currently on any inhalers * Assessment & Plan Note - Chelsey Bagley MD - 03/14/2024 10:11 AM EST Associated Problem(s): Dyslipidemia - Continue home atorvastatin 40 mg daily * Assessment & Plan Note - Chelsey Bagley MD - 03/14/2024 10:11 AM EST Associated Problem(s): Acute kidney injury superimposed on CKD (HCC) Patient has a history of chronic kidney disease and follows with Nephrology in the outpatient setting. Patient's baseline creatinine of 1.2-1.4; current creatinine of 2.18. Patient's troponins were trending flat and proBNP of slightly greater than 400. - Holding home losartan - urine electrolytes - Holding off on further fluids with heart failure history - Transplant nephrology consulted - Monitor BMP daily * Assessment & Plan Note - Chelsey Bagley MD - 03/14/2024 10:11 AM EST Associated Problem(s): Gastroesophageal reflux disease without esophagitis - Continue home pantoprazole 40 mg daily * Assessment & Plan Note - Chelsey Bagley MD - 03/14/2024 10:11 AM EST Associated Problem(s): Lactic acidosis (Resolved 03/15/2024) Was noted emergency department to have initial lactic acid of 4.2 which improved to 2.0 with antibiotics and fluids. Patient was given stacked nebulizers in emergency department and at the moment demonstrates no signs of sepsis apart from a very slight leukopenia. -lactic acid resolved * Plan of Care - Carmen Plummer - 03/14/2024 9:49 AM EST Case Management Continued Stay Review: Pertinent Clinical impacting hospitalization, level of care update, if indicated : Per Dr. Angela, DEREK is 03/16 patient needs to complete remdesivir. Discharge Planning: Discharge Barrier: Medical stability Discharge Plan: :Anticipate patient will be able to return home when medically cleared, CM to follow Choice list (with star ratings) provided / discussed, if indicated (Y or NA): * Hospital Course - Chelsey Bagley MD - 03/13/2024 3:56 PM EST Hospital Summary 68-year-old male with history of sarcoidosis, heart failure with a heart transplant in 2003 at [facility] who is on immune suppression, CVA, defibrillator and pacer in place who is being sent over from [facility] for increasing oxygen requirement. Sent from [facility] for hypoxia with COVID+, tachypneic to the 35s on HFNC, weaned to NC in ED following nebulizer treatments, saturating well. Started on remdesivir and dexamethasone. CXR normal. Patient started on abx for pna however discontinued given rapid improvement in symptoms and no evidence of bacterial pna. Patient also evaluated by transplant infectious disease who recommended continuing covid treatment (remdesivir, dexamethasone while admitted) and continuation of immunosuppressants for heart transplant. Patient also evaluated by cardiology who recommended continued outpatient followup, no acute interventions. Transition of Care - complete remdesivir x5 days - resume home prednisone on discharge, continue all other immunosupp - follow-up with cardiology, PCP on discharge. COVID Patient has a history of heart failure requiring transplantation 20 years ago and is presenting to hospital from [place] secondary to hypoxic respiratory failure initially requiring [...] streaky left basilar/retrocardiac opacities, likely representing atelectasis; Heartsize and pulmonary vasculature within normal limits given [...] facility. 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 Patient is chronically on mycophenolate mofetil, and cyclosporine as well as prednisone 5 mg daily. Patient has been seen by Pulmonology in 2021 with pulmonary function testing at the timeshowing a mild obstructive defect but is not [...] twice daily, cyclosporine 75 mg twice daily -Transitioned home prednisone 5 mg daily to dexamethasone 6 mg daily x 7-day course in the setting of active COVID infection On Discharge -Continue home mycophenolate mofetil 500 mg twice daily, cyclosporine 75 mg twice daily, prednisone5 mg daily Subclinical hypothyroidism Last reported TSH of 1.086 2 years ago. 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 Patient has been seen by Pulmonology in 2021 with pulmonary function testing at the timeshowing a mild obstructive defect but is not currently on any inhalers On Discharge - follow up with cardiology outpt Dyslipidemia - Continue home atorvastatin 40 mg daily On Discharge - continue home meds Acute kidney injury superimposed on CKD (HCC) Patient has a history of chronic kidney disease and follows with Nephrology in the outpatient setting. Patient's baseline creatinine of 1.2-1.4; current creatinine of 2.18. Patient's troponins were trending flat and proBNP of slightly greater than 400. - Holding home losartan - urine electrolytes - Holding off on further fluids with heart failure history - Transplant nephrology consulted - Monitor BMP daily On Discharge - follow up with PCP Gastroesophageal reflux disease without esophagitis - Continue home pantoprazole 40 mg daily On Discharge - continue home meds Lactic acidosis RESOLVED Was noted emergency department to have initial lactic acid of 4.2 which improved to 2.0 with antibiotics and fluids. Patient was given stacked nebulizers in emergency department and at the moment demonstrates no signs of sepsis apart from a very slight leukopenia. -lactic acid resolved * Plan of Care - Norma Wade RN - 03/13/2024 1:26 PM EST Case Management Admission Note: Pertinent Clinical impacting hospitalization. PA / Level of Care Change, if applicable: 68-year-old male PMH pulmonary sarcoid, heart failure status post heart transplant in 2003 as well as AICD and pacemaker, prior cerebrovascular accident, chronic kidney disease, hypertension, hyperlipidemia presented as a transfer from [facility] secondary to COVID positivity as well as increased oxygen requirement Patient Assessment: Spoke with patient on phone. Confirmed address, patient has no PCP as he said he just moved but daughter is an RN out in his area and is assisting with finding new PCP. Patient lives with a roommate in a second floor apt, flight of stairs to enter. He uses no DME, he is independent and drives. Wentto inpt rehab and had VNA 20 years ago after transplant / stroke but hasn't had anything since. Uses [facility], HCP, Designated Caregiver, Guardian: HCP Shantelle Quintanilla Initial Discharge Planning:Anticipate patient will be able to return home when medically cleared, CM to follow Choice list (with star ratings) provided / discussed, if indicated (Y or NA): NA * Assessment & Plan Note - Chelsey Bagley MD - 03/13/2024 1:09 PM EST Associated Problem(s): Subclinical hypothyroidism Last reported TSH of 1.086 2 years ago. Patient not currently on supplementation - consider repeat TSH * Assessment & Plan Note - Chelsey Bagley MD - 03/13/2024 1:09 PM EST Associated Problem(s): COVID Patient has a history of heart failure requiring transplantation 20 years ago and is presenting to hospital from [place] secondary to hypoxic respiratory failure initially requiring [...] streaky left basilar/retrocardiac opacities, likely representing atelectasis; Heartsize and pulmonary vasculature within normal limits given [...] as needed for pain/fever -Strict airborne/contact precautions * Assessment & Plan Note - Chelsey Bagley MD - 03/13/2024 1:09 PM EST Associated Problem(s): Acute kidney injury superimposed on CKD (HCC) Patient has a history of chronic kidney disease and follows with Nephrology in the outpatient setting. Patient's baseline creatinine of 1.2-1.4; current creatinine of 2.18. Patient's troponins were trending flat and proBNP of slightly greater than 400. 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 Patient is chronically on mycophenolate mofetil, and cyclosporine as well as prednisone 5 mg daily. Patient has been seen by Pulmonology in 2021 with pulmonary function testing at the timeshowing a mild obstructive defect but is not [...] daily x 7-day course in the setting ofactive COVID infection - Cardiology consulted, recommended continued monitoring, no changes to medications -Monitor patient on telemetry -Monitor vitals every 4 hours and CBC daily -Monitor daily weights and strict I's and O's * Assessment & Plan Note - Chelsey Bagley MD - 03/13/2024 1:09 PM EST Associated Problem(s): Lactic acidosis (Resolved 03/15/2024) Was noted emergency department to have initial lactic acid of 4.2 which improved to 2.0 with antibiotics and fluids. Patient was given stacked nebulizers in emergency department and at the moment demonstrates no signs of sepsis apart from a very slight leukopenia. -lactic acid resolved * Assessment & Plan Note - Chelsey Bgaley MD - 03/13/2024 10:11 AM EST Associated Problem(s): Dyslipidemia - Continue home atorvastatin 40 mg daily * Assessment & Plan Note - Chelsey Bagley MD - 03/13/2024 10:11 AM EST Associated Problem(s): Gastroesophageal reflux disease without esophagitis - Continue home pantoprazole 40 mg daily * Assessment & Plan Note - Chelsey Bagley MD - 03/13/2024 10:11 AM EST Associated Problem(s): Essential hypertension - Holding home amlodipine in setting of lactic acidosis - Holding home losartan due to acute kidney injury * ED Continuation of Care - Hayder Spencer MD - 03/12/2024 7:31 PM EST ED Continuation of Care Handoff 68M PMHx sarcoidosis, s/p Heart txp remains on immunosuppression, CVA, defibrillator, pacemaker in place. Went to [facility] for shortness of breath, found COVID positive, put on HFNC for WOB but not hypoxia. Unable to wean. Transferred here for cardiology and transplant. Came of HFNC, now down to 2L NC. Is getting remdesivir, got covered with doxy and ceftri at [facility], but no evidence pna on CXR. Lactic acid 4.2, and has been receiving small aliquots fluid boluses. Trop mildly elevated but stable. CMP with mild gap and low CO2, likely related to LA. Cardiology consulted, no immediate recs. Can admit to medicine and cardiology will follow if needed. Plan FU repeat lactic acid Admit to medicine ED Course Patient weaned to room air, not requiring any supplemental oxygen. Lactic acidosis has improved. Patient was admitted to internal medicine for ongoing monitoring and treatment. 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 Patient states over the past few days patient has feeling unwell mucousy tired and fatigued. He also notes increasing dyspnea on exertion. He went to [facility] where they diagnosed him with COVID-positive, gave him doxycycline, ceftriaxone, along with a DuoNeb. She was also given hydrocortisone, 2 L of fluid. Patient was transferred here for further management. On exam patient is on high flow nasal cannula satting high percent. Is not tachypneic. Regular rateand rhythm. Lungs are clear to auscultation. No lower extremity edema. Plan to repeat labs and chest x-ray. Patient will require an admission. Will also on remdesivir andhome mycophenolate and cyclosporine was ordered. [SJ] 6364 FINDINGS AND IMPRESSION: No gross focal consolidation, pleural effusion or pneumothorax. Hazy and streaky left basilar/retrocardiac opacities, likely representing atelectasis. Heart size and pulmonary vasculature within normal limits given technique. No acute osseous abnormality. Sternotomy wires. [MB] 1714 Pt got doxy and Ctx at OSH [MB] ED Course User Index [MB] Jermaine Henderson MD [SJ] Delmy Ocampo MD [facility] Wagner Quintanilla : 1955 CSN: [id number] Cosigned by Mango Burk MD at 03/14/2024 11:03 AM EST Associated attestation - Mango Burk MD - 03/14/2024 11:03 AM EST Attending to Resident/Fellow - I did not personally examine the patient that I received in signout from the prior attending. I discussed the case with the previous attending. After assuming care of the patient, I discussed the case with the resident(s)/fellow(s) and agree with the findings and min documented by the resident(s)/fellow(s). Lee elements, clarifications and/or exceptions are noted by me. Wagner Quintanilla : 1955 CSN: [id number] * ED Continuation of Care - Mango Burk MD - 03/12/2024 2:33 PM EST ED Continuation of Care 03/12/24 2:33 PM Sign out from Dr. Delmy Ocampo MD Amount and/or Complexity of Data Reviewed: Discussion with other providers: Care was discussed with the following providers: ADMITTING PROVIDER (to discuss med. workup and need for admit). 68M with cardiac tx in 2003 with covid, on high-flow NC for comfort. Given doxy/ctx, steroids, 2L IVF. Patient here getting remdesivir. In for ICU bed. ID aware. Will also discuss with cardiology given followed by tx cardiology here. 11:37 AM Ultimately weaned from HFNC to NC to RA. Admitted to medicine service. 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 Patient states over the past few days patient has feeling unwell mucousy tired and fatigued. He also notes increasing dyspnea on exertion. He went to [facility] where they diagnosed him with COVID-positive, gave him doxycycline, ceftriaxone, along with a DuoNeb. She was also given hydrocortisone, 2 L of fluid. Patient was transferred here for further management. On exam patient is on high flow nasal cannula satting high percent. Is not tachypneic. Regular rateand rhythm. Lungs are clear to auscultation. No lower extremity edema. Plan to repeat labs and chest x-ray. Patient will require an admission. Will also on remdesivir andhome mycophenolate and cyclosporine was ordered. [SJ] 1714 FINDINGS AND IMPRESSION: No gross focal consolidation, pleural effusion or pneumothorax. Hazy and streaky left basilar/retrocardiac opacities, likely representing atelectasis. Heart size and pulmonary vasculature within normal limits given technique. No acute osseous abnormality. Sternotomy wires. [MB] 1714 Pt got doxy and Ctx at OSH [MB] ED Course User Index [MB] Jermaine Henderson MD [SJ] Delmy Ocampo MD Attending to Resident/Fellow - I did not personally examine the patient that I received in signout from the prior attending. I discussed the case with the previous attending. After assuming care of the patient, I discussed the case with the resident(s)/fellow(s) and agree with the findings and min documented by the resident(s)/fellow(s). Lee elements, clarifications and/or exceptions are noted by me. Wanger Janay Quintanilla : 1955 CSN: [id number] Wagner Gustafson Quintanilla : 1955 CSN: [id number] documented in this encounter Plan of Treatment Upcoming Encounters Date Type Department Care Team (Late st Contact Info) Description 04/24/2024 1:00 PM EST Follow-Up [address] floor Cardiology Medicine [address] [place] [id number] [employer] Estate Administrative Assistant: Mariah Matt 05/24/2024 10:30 AM EDT Follow-Up [address] floor Cardiology Medicine [address] [place] [id number] Real Estate Administrative Assistant: Mariah Matt 06/25/2024 1:15 PM EDT Follow-Up [facility] 4th Floor [address] [facility], [place] [phone] Real Estate Administrative Assistant: Diane Sofia PA [address] [place] [address] Scheduled Orders Name Type Priority Associated Diagnoses Orde r Schedule Comprehensive metabolic panel Lab Routine COVID Expected: 03/23/2024, Expires: 03/16/2025 documented as of this encounter Procedures * Due to [place] state law, this organization might not be sharing negative HIV tests. Procedure Name Priority Date/Time Associated Diagnosis Comments COMPREHENSIVE METABOLIC PANEL STAT 03/16/2024 10:24 AM EST CBC AUTO DIFFERENTIAL Timed 03/16/2024 7:28 AM EST URINALYSIS W/REFLEX TO MICROSCOPIC & CULTURE Routine 03/15/2024 2:47 PM EST PRICE TOP, URN Routine 03/15/2024 2:47 PM EST UA/CULTURE REFLEX Routine 03/15/2024 2:4 7 PM EST MICROALBUMIN, RANDOM URINE WITH CREATININE Routine 03/15/2024 2:47 PM EST CBC AUTO DIFFERENTIAL Timed 03/15/2024 5:53 AM EST COMPREHENSIVE METABOLIC PANEL Routine 03/15/2024 5:53 AM EST COMPREHENSIVE METABOLIC PANEL STAT 03/14/2024 8:35 AM EST CBC AUTO DIFFERENTIAL Timed 03/14/2024 7:40 AM EST SODIUM, RANDOM URINE STAT 03/13/2024 8:08 AM EST CBC AUTO DIFFERENTIAL Timed 03/13/2024 5:22 AM EST MAGNESIUM Routine 03/13/2024 5:22 AM EST LACTIC ACID, PLASMA Routine 03/13/2024 5 :22 AM EST COMPREHENSIVE METABOLIC PANEL Routine 03/13/2024 5:22 AM EST ECG 12-LEAD STAT 03/12/2024 9:25 PM EST LACTIC ACID, PLASMA REPEATED Timed 03/12/2024 8:16 PM EST LACTIC ACID, PLASMA W/ REPEAT STAT 03/12/2024 5:15 PM EST TROPONIN T HIGH SENSITIVITY STAT 03/12/2024 2:23 PM EST PHOSPHORUS STAT Add-on 03/12/2024 2:23 PM EST MAGNESIUM STAT Add-on 03/12/2024 2:23 PM EST XR CHEST PORTABLE 1 VIEW STAT 03/12/2024 1:20 PM EST GOLD TOP Routine 03/12/2024 12:50 PM EST RAINBOW DRAW Routine 03/12/2024 12:50 PM EST GOLD TOP Routine 03/12/2024 12:49 PM EST PRICE TOP Routine 03/12/2024 12:49 PM EST SMEAR REVIEW STAT 03/12/2024 12:49 PM EST TROPONIN T HIGH SENSITIVITY STAT Add-on 03/12/2024 12:49 PM EST N-TERMINAL PROBRAIN NATRIURETIC PEPTIDE STAT 03/12/2024 12:49 PM EST CBC AUTO DIFFERENTIAL STAT Add-on 03/12/2024 12:49 PM EST LAVENDER TOP Routine 03/12/2024 12:49 PM EST LAVENDER TOP Routine 03/12/2024 12:49 PM EST LIGHT GREEN TOP Routine 03/12/2024 12:49 PM EST RED TOP Routine 03/12/2024 12:49 PM EST LIGHT BLUE TOP Routine 03/12/2024 12:49 PM EST RAINBOW DRAW Routine 03/12/2024 12:49 PM EST LACTIC ACID, PLASMA STAT Add-on 03/12/2024 1 2:49 PM EST COMPREHENSIVE METABOLIC PANEL STAT Add-on 03/12/2024 12:49 PM EST POCT I-STAT LACTATE W/VBG Routine 03/12/2024 12:40 PM EST HEART & VASCULAR - SCANNED 03/12/2024 HEART & VASCULAR - SCANNED 03/12/2024 documented in this encounter Results * Due to [place] state law, this organization might not be sharing negative HIV tests. * (ABNORMAL) Comprehensive Metabolic Panel (03/16/2024 10:24 AM EST) NA 139 135 - 145 mmol/L 03/16/2024 11:34 AM EST [facility] K 3.6 3.5 - 5.3 mmol/L 03/16/2024 11:34 AM EST [facility] Cl 104 98 - 107 mmol/L 03/16/2024 11:34 AM EST [facility] CO2 23 22 - 32 mmol/L 03/16/2024 11:34 AM EST [facility] Anion Gap 12 5 - 15 03/16/2024 11:34 AM EST [facility] Glucose 99 65 - 99 mg/dL 03/16/2024 11:34 AM EST [facility] Creatinine 1.38(H) 0.60 - 1.30 mg/dL 03/16/2024 11:34 AM EST [facility] Calcium 8.2(L) 8.6 - 10.5 mg/dL 03/16/2024 11:34 AM EST [facility] Total Protein 6.0 6.0 - 8.0 g/dL 03/16/2024 11:34 AM EST [facility] Albumin 3.5 3.5 - 5.2 g/dL 03/16/2024 11:34 AM EST [facility] Bilirubin, Total 0.8 0.2 - 1.2 mg/dL 03/16/2024 11:34 AM EST [facility] Alkaline Phosphatase 70 35 - 129 U/L 03/16/2024 11:34 AM EST [facility] AST 34 10 - 40 U/L 03/16/2024 11:34 AM EST [facility] ALT 41(H) 10 - 40 U/L 03/16/2024 11:34 AM EST [facility] BUN 41(H) 7 - 23 mg/dL 03/16/2024 11:34 AM EST [facility] eGFR 56(L) >=60 mL/min/1 .73m2 03/16/2024 11:34 AM EST [facility] Comment:The estimated glomer ular [...] - 4.2 g/dL 03/16/2024 11:34 AM EST [facility] A/G Ratio 1.4(L) 1.5 - 3.0 03/16/2024 11:34 AM EST [facility] Blood Structure of peripheral vein / Unknown Venipuncture / Unknown 03/16/2024 10:24 AM EST 03/16/2024 10:53 AM EST us Rico Landa MD LAB BLOOD ORDERABL ES Final Result [facility] [address] [place] [address], [place] * (ABNORMAL) CBC Auto Differential (03/16/2024 7:28 AM EST) WBC 6.8 3.8 - 10.8 10*3/uL 03/16/2024 8:39 AM EST [facility] RBC 5.57 4.20 - 5.80 10*6/uL 03/16/2024 8:39 AM EST [facility] Hemoglobin 16.3 13.2 - 17.1 g/dL 03/16/2024 8:39 AM EST [facility] Hematocrit 47.8 38.5 - 50.0 % 03/16/2024 8:39 AM EST [facility] MCV 85.8 80.0 - 100.0 fL 03/16/2024 8:39 AM EST [facility] MCH 29.3 27.0 - 33.0 pg 03/16/2024 8:39 AM EST [facility] MCHC 34.1 32.0 - 36.0 g/dL 03/16/2024 8:39 AM EST [facility] RDW 12.9 [...] - 0.95 10*3/uL 03/16/2024 8:39 AM EST [facility] Eosinophil # <0.03 0.02 - 0.50 10*3/uL 03/16/2024 8:39 AM EST [facility] Basophil # <0.03 0.00 - 0.20 10*3/uL 03/16/2024 8:39 AM EST [facility] nRBC % 0.0 /100 WBCs 03/16/2024 8:39 AM EST [facility] nRBC # <0.01 <0.01 10*3/uL 03/16/2024 8:39 AM EST [facility] Blood Structure of peripheral vein / Unknown Venipuncture / Unknown 03/16/2024 7:28 AM EST 03/16/2024 8:15 AM EST Andrew Edward DO LAB BLOOD ORDERABLES Final Resu lt Performing Organization Address City/[facility]/ZIP Co de Phone Number [facility] [address] [place] [address] * (ABNORMAL) Microalbumin, Random Urine with Creatinine (03/15/2024 2:47 PM EST) Microalbumin, Urine 6.0 mg/dL 03/15/2024 10:14 PM EST [facility] Creatinine, Urine 133 22 - 328 mg/dL 03/15/2024 10:14 PM EST [facility] Microalb/Creat Ratio, Random Urine 45.1(H) <30.0 mcg/mgCr 03/15/2024 10:14 PM EST [facility] Comment: Microalbumin Reference Range: Normal ? <30 mcg/mg Creatinine Microalbuminuria ? 30-300 mcg/mg Creatinine Clinical Albuminuria >300 mcg/mg Creatinine Reference: ADA Guideline. Diabetes Care. 2004;27 (suppl 1) Urine Urine specimen collection, clean catch / Unknown Non-Blood Collection / Unknown 03/15/2024 2:47 PM EST 03/15/2024 3:19 PM EST Rico Landa MD LAB URINE ORDERABL ES Final Result Performing Organization Address City/[facility]/ZIP Co de Phone Number [facility] [address] [place] [address], [place] * Price Top, Urine (03/15/2024 2:47 PM EST) Extra Tube Hold for add-ons. 03/15/2024 7:05 PM EST [facility] Comment:Auto resulted. Urine Urine specimen collection, clean catch / Unknown Non-Blood Collection / Unknown 03/15/2024 2:47 PM EST 03/15/2024 3:12 PM EST us Rico Landa MD LAB URINE ORDERABL ES Final Result [facility] [address] [place] [address], * Urinalysis W/Reflex to Microscopic & Culture (03/15/2024 2:47 PM EST) Color, Urine Yellow Colorless, Light Yellow, Yellow, Dark Yellow 03/15/2024 3:35 PM EST [facility] Clarity, Urine Clear Clear 03/15/2024 3:35 PM EST [facility] Specific [place], Urine 1.023 1.005 - 1.030 03/15/2024 3:35 PM EST [facility] pH, Urine 5.0 4.6 - 8.0 03/15/2024 3:35 PM EST [facility] Protein, Urine Negative Negative 03/15/2024 3:35 PM EST [facility] Glucose, Urine Negative Negative 03/15/2024 3:35 PM EST [facility] Ketones, Urine Negative Negative 03/15/2024 3:35 PM EST [facility] Bilirubin, Urine Negative Negative 03/15/2024 3:35 PM EST [facility] Blood, Urine Negative Negative 03/15/2024 3:35 PM EST [facility] Nitrite, Urine Negative Negative 03/15/2024 3:35 PM EST [facility] Urobilinogen, Urine Normal Normal 03/15/2024 3:35 PM EST [facility] Leukocyte Esterase, Urine Negative Negative 03/15/2024 3:35 PM EST [facility] Urine Urine specimen collection, clean catch / Unknown Non-Blood Collection / Unknown 03/15/2024 2:47 PM EST 03/15/2024 3:19 PM EST us Rico Landa MD LAB URINE ORDERABL ES Final Result [facility] [address] [place] [address], [place] * (ABNORMAL) CBC Auto Differential (03/15/2024 5:53 AM EST) WBC 4.6 3.8 - 10.8 10*3/uL 03/15/2024 6:54 AM EST [facility] RBC 5.23 4.20 - 5.80 10*6/uL 03/15/2024 6:54 AM EST [facility] Hemoglobin 15.0 13.2 - 17.1 g/dL 03/15/2024 6:54 AM EST [facility] Hematocrit 46.4 38.5 - 50.0 % 03/15/2024 6:54 AM EST [facility] MCV 88.7 80.0 - 100.0 fL 03/15/2024 6:54 AM EST [facility] MCH 28.7 27.0 - 33.0 pg 03/15/2024 6:54 AM EST [facility] MCHC 32.3 32.0 - 36.0 g/dL 03/15/2024 6:54 AM EST [facility] RDW 12.9 11.0 - 15.0 % 03/15/2024 6:54 AM EST [facility] Platelets 105(L) 140 - 400 10*3/uL 03/15/2024 6:54 AM EST [facility] MPV 10.9 7.5 - 12.5 fL 03/15/2024 6:54 AM EST [facility] Neutrophil % 73.5 % 03/15/2024 6:54 AM EST [facility] Immature Grans % 0.4 0.0 - 0.9 % 03/15/2024 6:54 AM EST [facility] Lymphocyte % 17.4 % 03/15/2024 6:54 AM EST [facility] Monocyte % 8.7 % 03/15/2024 6:54 AM EST [facility] Eosinophil % 0.0 % 03/15/2024 6:54 AM EST [facility] Basophil % 0.0 % 03/15/2024 6:54 AM EST [facility] Neutrophil # 3.39 1.50 - 7.80 10*3/uL 03/15/2024 6:54 AM EST [facility] Immature Grans # <0.03 <=0.03 10*3/uL 03/15/2024 6:54 AM EST [facility] Lymphocyte # 0.80(L) 0.85 - 3.90 10*3/uL 03/15/2024 6:54 AM EST [facility] Monocyte # 0.40 0.20 - 0.95 10*3/uL 03/15/2024 6:54 AM EST [facility] Eosinophil # <0.03 0.02 - 0.50 10*3/uL 03/15/2024 6:54 AM EST [facility] Basophil # <0.03 0.00 - 0.20 10*3/uL 03/15/2024 6:54 AM EST [facility] nRBC % 0.0 /100 WBCs 03/15/2024 6:54 AM EST [facility] nRBC # <0.01 <0.01 10*3/uL 03/15/2024 6:54 AM EST [facility] Blood Structure of peripheral vein / Unknown Venipuncture / Unknown 03/15/2024 5:53 AM EST 03/15/2024 6:21 AM EST Andrew Edward DO LAB BLOOD ORDERABLES Final Resu lt [facility] [address] [place] [address], * (ABNORMAL) Comprehensive metabolic panel (03/15/2024 5:53 AM EST) NA 141 135 - 145 mmol/L 03/15/2024 6:56 AM EST [facility] K 3.9 3.5 - 5.3 mmol/L 03/15/2024 6:56 AM EST [facility] Cl 106 98 - 107 mmol/L 03/15/2024 6:56 AM EST [facility] CO2 21(L) 22 - 32 mmol/L 03/15/2024 6:56 AM EST [facility] Anion Gap 14 5 - 15 03/15/2024 6:56 AM EST [facility] Glucose 109(H) 65 - 99 mg/dL 03/15/2024 6:56 AM EST [facility] Creatinine 1.64(H) 0.60 - 1.30 mg/dL 03/15/2024 6:56 AM EST [facility] Calcium 9.0 8.6 - 10.5 mg/dL 03/15/2024 6:56 AM EST [facility] Total Protein 6.4 6.0 - 8.0 g/dL 03/15/2024 6:56 AM EST [facility] Albumin 3.7 3.5 - 5.2 g/dL 03/15/2024 6:56 AM EST [facility] Bilirubin, Total 0.6 0.2 - 1.2 mg/dL 03/15/2024 6:56 AM EST [facility] Alkaline Phosphatase 74 35 - 129 U/L 03/15/2024 6:56 AM EST [facility] AST 38 10 - 40 U/L 03/15/2024 6:56 AM EST [facility] ALT 37 10 - 40 U/L 03/15/2024 6:56 AM EST [facility] BUN 47(H) 7 - 23 mg/dL 03/15/2024 6:56 AM EST [facility] eGFR 46(L) >=60 mL/min/1 .73m2 03/15/2024 6:56 AM [facility] Comment:The estimated glomer ular filtration rate (eGFR) is calculated using a new formula developed by the NKF-ASN task force to eliminate race-based correction factors. The new formula uses serum/plasma creatinine, age, and gender to determine eGFR. A value below 60mls/min might indicate kidney disease and will be flagged. For additional information, see Bob et al, Am J Kidney Dis. 2021;79(2):268- 288, A Unifying Approach for GFR estimation: Recommendations of the NKF-ASN Task Force on Reassessing the Inclusion of Race in Diagnosing Kidney Disease . Globulin, Total 2.7 2.1 - 4.2 g/dL 03/15/2024 6:56 AM EST [facility] A/G Ratio 1.4(L) 1.5 - 3.0 03/15/2024 6:56 AM [facility] Blood Structure of peripheral vein / Unknown Venipuncture / Unknown 03/15/2024 5:53 AM EST 03/15/2024 6:21 AM EST us Rico Landa MD LAB BLOOD ORDERABL ES Final Result [facility] [address] [place] [address], * (ABNORMAL) Comprehensive Metabolic Panel (03/14/2024 8:35 AM EST) NA 143 135 - 145 mmol/L 03/14/2024 9:23 AM EST [facility] K 3.6 3.5 - 5.3 mmol/L 03/14/2024 9:23 AM EST [facility] Cl 104 98 - 107 mmol/L 03/14/2024 9:23 AM EST [facility] CO2 22 22 - 32 mmol/L 03/14/2024 9:23 AM EST [facility] Anion Gap 17(H) 5 - 15 03/14/2024 9:23 AM EST [facility] Glucose 111(H) 65 - 99 mg/dL 03/14/2024 9:23 AM EST [facility] Creatinine 1.62(H) 0.60 - 1.30 mg/dL 03/14/2024 9:23 AM EST [facility] Calcium 9.5 8.6 - 10.5 mg/dL 03/14/2024 9:23 AM EST [facility] Total Protein 7.5 6.0 - 8.0 g/dL 03/14/2024 9:23 AM EST [facility] Albumin 4.2 3.5 - 5.2 g/dL 03/14/2024 9:23 AM EST [facility] Bilirubin, Total 0.9 0.2 - 1.2 mg/dL 03/14/2024 9:23 AM EST [facility] Alkaline Phosphatase 87 35 - 129 U/L 03/14/2024 9:23 AM EST [facility] AST 48(H) 10 - 40 U/L 03/14/2024 9:23 AM EST [facility] ALT 36 10 - 40 U/L 03/14/2024 9:23 AM EST [facility] BUN 41(H) 7 - 23 mg/dL 03/14/2024 9:23 AM EST [facility] eGFR 47(L) >=60 mL/min/1 .73m2 03/14/2024 9:23 AM EST [facility] Comment:The estimated glomer ular filtration rate (eGFR) is calculated using a new formula developed by the NKF-ASN task force to eliminate race-based correction factors. The new formula uses serum/plasma creatinine, age, and gender to determine eGFR. A value below 60mls/min might indicate kidney disease and will be flagged. For additional information, see Bob et al, Am J Kidney Dis. 2021;79(2):268- 288, A Unifying Approach for GFR estimation: Recommendations of the NKF-ASN Task Force on Reassessing the Inclusion of Race in Diagnosing Kidney Disease . Globulin, Total 3.3 2.1 - 4.2 g/dL 03/14/2024 9:23 AM EST [facility] A/G Ratio 1.3(L) 1.5 - 3.0 03/14/2024 9:23 AM EST [facility] Blood Structure of peripheral vein / Unknown Venipuncture / Unknown 03/14/2024 8:35 AM EST 03/14/2024 8:50 AM EST us Rico Landa MD LAB BLOOD ORDERABL ES Final Result [facility] [address] [place] [address], * (ABNORMAL) CBC Auto Differential (03/14/2024 7:40 AM EST) WBC 5.0 3.8 - 10.8 10*3/uL 03/14/2024 8:59 AM EST [facility] RBC 5.62 4.20 - 5.80 10*6/uL 03/14/2024 8:59 AM EST [facility] Hemoglobin 16.1 13.2 - 17.1 g/dL 03/14/2024 8:59 AM EST [facility] Hematocrit 48.1 38.5 - 50.0 % 03/14/2024 8:59 AM EST [facility] MCV 85.6 80.0 - 100.0 fL 03/14/2024 8:59 AM EST [facility] MCH 28.6 27.0 - 33.0 pg 03/14/2024 8:59 AM EST [facility] MCHC 33.5 32.0 - 36.0 g/dL 03/14/2024 8:59 AM EST [facility] RDW 13.0 11.0 - 15.0 % 03/14/2024 8:59 AM EST [facility] Platelets 130(L) 140 - 400 10*3/uL 03/14/2024 8:59 AM EST [facility] MPV 11.1 7.5 - 12.5 fL 03/14/2024 8:59 AM EST [facility] Neutrophil % 63.6 % 03/14/2024 8:59 AM EST [facility] Immature Grans % 0.2 0.0 - 0.9 % 03/14/2024 8:59 AM EST [facility] Lymphocyte % 24.8 % 03/14/2024 8:59 AM EST [facility] Monocyte % 11.4 % 03/14/2024 8:59 AM EST [facility] Eosinophil % 0.0 % 03/14/2024 8:59 AM EST [facility] Basophil % 0.0 % 03/14/2024 8:59 AM EST [facility] Neutrophil # 3.19 1.50 - 7.80 10*3/uL 03/14/2024 8:59 AM EST [facility] Immature Grans # <0.03 <=0.03 10*3/uL 03/14/2024 8:59 AM EST [facility] Lymphocyte # 1.20 0.85 - 3.90 10*3/uL 03/14/2024 8:59 AM EST [facility] Monocyte # 0.60 0.20 - 0.95 10*3/uL 03/14/2024 8:59 AM EST [facility] Eosinophil # <0.03 0.02 - 0.50 10*3/uL 03/14/2024 8:59 AM EST [facility] Basophil # <0.03 0.00 - 0.20 10*3/uL 03/14/2024 8:59 AM EST [facility] nRBC % 0.0 /100 WBCs 03/14/2024 8:59 AM EST [facility] CLINICAL PATHOLOGY LABORATORY nRBC # <0.01 <0.01 10*3/uL 03/14/2024 8:59 AM EST [facility] CLINICAL PATHOLOGY LABORATORY Blood Structure of peripheral vein / Unknown Venipuncture / Unknown 03/14/2024 7:40 AM EST 03/14/2024 8:49 AM EST Andrew Edward DO LAB BLOOD ORDERABLES Final Resu lt [facility] [address] [place] [address], * (ABNORMAL) Sodium, Random Urine with Creatinine (03/13/2024 8:08 AM EST) Sodium, Urine 114 mmol/L 03/13/2024 8:43 AM EST [facility] Creatinine, Urine 36 22 - 328 mg/dL 03/13/2024 8:43 AM EST [facility] Sodium/Creatin ine, Urine Ratio 317(H) 23 - 229 mmol/gmCr 03/13/2024 8:43 AM EST [facility] Urine Voided urine specimen / Unknown Non-Blood Collection / Unknown 03/13/2024 8:08 AM EST 03/13/2024 8:14 AM EST [facility] URINE ORDERABLES Final Resu lt Performing Organization Address City/[facility]/ZIP Co de Phone Number [facility] CL[facility] LABORATORY [address] [place] [address], * Lactic Acid, Plasma (03/13/2024 5:22 AM EST) Lactic Acid 1.2 0.5 - 1.9 mmol/L 03/13/2024 6:10 AM EST [facility] Comment: Sepsis Screening: Initial Lactate Level >2.0 mmol/L - Repeat Lactate Level within 3 hours. Initial Lactate Level >4.0 mmol/L - Repeat Lactate Level within 3 hours, Initiate Septic Shock Protocol. Blood Structure of peripheral vein / Unknown Venipuncture / Unknown 03/13/2024 5:22 AM EST 03/13/2024 5:29 AM EST [facility] LAB BLOOD ORDERABLES Final Resu lt [facility] CL[facility] PATH[facility] LABORATORY [address] [place] [address], * (ABNORMAL) CBC Auto Differential (03/13/2024 5:22 AM EST) WBC 3.6(L) 3.8 - 10.8 10*3/uL 03/13/2024 5:45 AM EST [facility] RBC 5.29 4.20 - 5.80 10*6/uL 03/13/2024 5:45 AM EST [facility] Hemoglobin 15.5 13.2 - 17.1 g/dL 03/13/2024 5:45 AM EST [facility] Hematocrit 45.8 38.5 - 50.0 % 03/13/2024 5:45 AM EST [facility] MCV 86.6 80.0 - 100.0 fL 03/13/2024 5:45 AM EST [facility] MCH 29.3 27.0 - 33.0 pg 03/13/2024 5:45 AM EST [facility] MCHC 33.8 32.0 - 36.0 g/dL 03/13/2024 5:45 AM EST [facility] RDW 13.2 11.0 - 15.0 % 03/13/2024 5:45 AM EST [facility] Platelets 107(L) 140 - 400 10*3/uL 03/13/2024 5:45 AM EST [facility] MPV 10.8 7.5 - 12.5 fL 03/13/2024 5:45 AM EST [facility] Neutrophil % 61.1 % 03/13/2024 5:45 AM EST [facility] Immature Grans % 0.3 0.0 - 0.9 % 03/13/2024 5:45 AM EST [facility] Lymphocyte % 26.2 % 03/13/2024 5:45 AM EST [facility] Monocyte % 12.4 % 03/13/2024 5:45 AM EST [facility] Eosinophil % 0.0 % 03/13/2024 5:45 AM EST [facility] Basophil % 0.0 % 03/13/2024 5:45 AM EST [facility] Neutrophil # 2.17 1.50 - 7.80 10*3/uL 03/13/2024 5:45 AM EST [facility] Immature Grans # <0.03 <=0.03 10*3/uL 03/13/2024 5:45 AM EST [facility] Lymphocyte # 0.90 0.85 - 3.90 10*3/uL 03/13/2024 5:45 AM EST [facility] Monocyte # 0.40 0.20 - 0.95 10*3/uL 03/13/2024 5:45 AM EST [facility] Eosinophil # <0.03 0.02 - 0.50 10*3/uL 03/13/2024 5:45 AM EST [facility] Basophil # <0.03 0.00 - 0.20 10*3/uL 03/13/2024 5:45 AM EST [facility] nRBC % 0.0 /100 WBCs 03/13/2024 5:45 AM EST [facility] nRBC # <0.01 <0.01 10*3/uL 03/13/2024 5:45 AM EST [facility] CLINICAL PATHOLOGY LABORATORY Blood Structure of peripheral vein / Unknown Venipuncture / Unknown 03/13/2024 5:22 AM EST 03/13/2024 5:30 AM EST us Andrew Edward DO LAB BLOOD ORDERABLES Final Resu lt [facility] LABORATORY [address] [place] [address], * Magnesium (03/13/2024 5:22 AM EST) MG 2.3 1.6 - 2.4 mg/dL 03/13/2024 6:03 AM EST [facility]ICAL [facility] LABORAT[facility] Blood Structure of peripheral vein / Unknown Venipuncture / Unknown 03/13/2024 5:22 AM EST 03/13/2024 5:33 AM EST us Andrew Edward DO LAB BLOOD ORDERABLES Final Resu lt [facility] CLINICAL PATHOLOGY LABORATORY [address] [place] [address], * (ABNORMAL) Comprehensive Metabolic Panel (03/13/2024 5:22 AM EST) NA 144 135 - 145 mmol/L 03/13/2024 6:03 AM EST [facility] K 4.0 3.5 - 5.3 mmol/L 03/13/2024 6:03 AM EST [facility] Cl 111(H) 98 - 107 mmol/L 03/13/2024 6:03 AM EST [facility] CO2 20(L) 22 - 32 mmol/L 03/13/2024 6:03 AM EST [facility] Anion Gap 13 5 - 15 03/13/2024 6:03 AM EST [facility] Glucose 91 65 - 99 mg/dL 03/13/2024 6:03 AM EST [facility] Creatinine 1.79(H) 0.60 - 1.30 mg/dL 03/13/2024 6:03 AM EST [facility] Calcium 8.9 8.6 - 10.5 mg/dL 03/13/2024 6:03 AM EST [facility] Total Protein 6.7 6.0 - 8.0 g/dL 03/13/2024 6:03 AM EST [facility] Albumin 3.8 3.5 - 5.2 g/dL 03/13/2024 6:03 AM EST [facility] Bilirubin, Total 0.6 0.2 - 1.2 mg/dL 03/13/2024 6:03 AM EST [facility] Alkaline Phosphatase 81 35 - 129 U/L 03/13/2024 6:03 AM EST [facility] AST 46(H) 10 - 40 U/L 03/13/2024 6:03 AM EST [facility] CLINICAL PATHOLOG[facility] LABORATORY ALT 32 10 - 40 U/L 03/13/2024 6:03 AM EST [facility] [employer] CLINICAL PATHOLOGY LABORATORY BUN 34(H) 7 - 23 mg/dL 03/13/2024 6:03 AM EST [facility] [employer] [facility] CLINICAL PATHOLOGY LABORATORY eGFR 41(L) >=60 mL/min/1 .73m2 03/13/2024 6:03 AM EST [facility] CLINICAL PATHOLOGY LABORATORY Comment:The estimated glomer ular [...] in Diagnosing Kidney Disease . Globulin, Total 2.9 2.1 - 4.2 g/dL 03/13/2024 6:03 AM EST [facility] CLINICAL PATHOLOGY LABORATORY A/G Ratio 1.3(L) 1.5 - 3.0 03/13/2024 6:03 AM EST [facility] CLINICAL PATHOLOGY LABORATORY Blood Structure of peripheral vein / Unknown Venipuncture / Unknown 03/13/2024 5:22 AM EST 03/13/2024 5:33 AM EST us Andrew Edward DO LAB BLOOD ORDERABLES Final Resu lt [facility] CLINICAL PATHOLOGY LABORATORY [address] [place] [address], * ECG 12 lead (03/12/2024 9:25 PM EST) Ventricular Rate EKG 82 BPM MUSE EKG Atrial Rate 82 BPM MUSE EKG MO Interval 162 ms MUSE EKG QRS Interval 86 ms MUSE EKG QT Interval 420 ms MUSE EKG QTC Interval 490 ms MUSE EKG P [place] 17 degrees MUSE EKG R [place] 37 degrees MUSE EKG T Wave [place] 34 degrees MUSE EKG 03/12/2024 9:25 PM EST 03/18/2024 10:47 AM EST Impressions MUSE EKG - 03/18/2024 10:47 AM EST NORMAL SINUS RHYTHM NONSPECIFIC T WAVE ABNORMALITY PROLONGED QT INCOMPLETE RIGHT BUNDLE BRANCH BLOCK WHEN COMPARED WITH ECG OF 10-FEB-2024 08:08, T WAVE INVERSION NOW EVIDENT IN ANTERIOR LEADS QT HAS LENGTHENED Confirmed by Mariola Jacobs ([id number]) on 03/18/2024 10:47:13 AM Andrew Edward DO ECG ORDERABLES Final Result Performing Organization Address City/[facility]/ZIP Co de Phone Number [facility] EKG * (ABNORMAL) Lactic Acid, Plasma (03/12/2024 8:16 PM EST) Lactic Acid 2.4(H) 0.5 - 1.9 mmol/L 03/12/2024 8:52 PM EST [facility] CL[facility] LAB[facility] Blood Structure of peripheral vein / Unknown Venipuncture / Unknown 03/12/2024 8:16 PM EST 03/12/2024 8:21 PM EST Delmy Ocampo MD LAB BLOOD ORDERABLES Final Resul t [facility] CL[facility] LABORATORY [address] [place] [address] * (ABNORMAL) Lactic Acid, Plasma (w/Reflex if >2) (03/12/2024 5:15 PM EST) Lactic Acid 2.0(H) 0.5 - 1.9 mmol/L 03/12/2024 6:10 PM EST [facility] LAB[facility] Comment:Specimen is hemolyze d, result may be falsely increased. Blood Structure of peripheral vein / Unknown Venipuncture / Unknown 03/12/2024 5:15 PM EST 03/12/2024 5:28 PM EST Delmy Ocampo MD LAB BLOOD ORDERABLES Final Resul t Performing Organization Address [facility] Co de Phone Number [facility] CLINICAL PATHOLOGY LABORATORY [address] [place] [address], * Phosphorus (03/12/2024 2:23 PM EST) Phosphorus 2.8 2.5 - 4.5 mg/dL 03/12/2024 10:22 PM EST [facility] CL[facility] LAB[facility]AT[facility] Blood Structure of peripheral vein / Unknown Venipuncture / Unknown 03/12/2024 2:23 PM EST 03/12/2024 2:28 PM EST Andrew Edward DO LAB BLOOD ORDERABLES Final Resu lt Performing Organization Address [facility] de Phone Number [facility] CLINICAL PATHOLOGY LABORATORY [address] [place] [address], * (ABNORMAL) Magnesium (03/12/2024 2:23 PM EST) MG 1.5(L) 1.6 - 2.4 mg/dL 03/12/2024 10:22 PM EST [facility] LAB[facility]AT[facility] Blood Structure of peripheral vein / Unknown Venipuncture / Unknown 03/12/2024 2:23 PM EST 03/12/2024 2:28 PM EST Andrew Edward DO LAB BLOOD ORDERABLES Final Resu lt Performing Organization Address [facility] Co de Phone Number [facility] CLINICAL PATHOLOGY LABORATORY [address] [place] [address], * (ABNORMAL) Repeat Troponin #1 (03/12/2024 2:23 PM EST) Troponin T High Sensitivity 27(H) <=21 ng/L 03/12/2024 3:00 PM EST [facility] LAB[facility]AT[facility] Comment: Us-Bkntzjgl-A level of 52 ng/L or higher at [...] be evaluated in line with the 4th [place] Definition of AMI. Troponin baseline and serial [...] MD LAB BLOOD ORDERABLES Final Resul t [facility] LABOR[facility] [address] [place] [address], [place] * XR Chest Portable 1 View [...] obtain the completed interpretation. ? Workstation ID: [id number] Narrative 03/12/2024 1:33 PM EST COMPARISON: X-ray 11/22/2022. Resulting Agency Comment [id number] Procedure Note Shira Gusman MD - 03/12/2024 [...] possible to obtain thecompleted interpretation. Workstation ID: [id number] Delmy Ocampo MD IMG XR PROCEDURES Final Result * Gold Top (03/12/2024 12:50 PM EST) Pathologist [facility] Extra Tube Hold for add-ons. 03/12/2024 5:05 PM EST [facility]OLOG[facility] LABORAT[facility] Comment:Auto resulted. Blood Structure of peripheral vein / Unknown Venipuncture / Unknown 03/12/2024 12:50 PM EST 03/12/2024 12:59 PM EST Delmy Ocampo MD LAB BLOOD ORDERABLES Final Resul t [facility] [address] [place] [address], * (ABNORMAL) Lactic Acid, Plasma (03/12/2024 12:49 PM EST) Lactic Acid 4.2(HH) 0.5 - 1.9 mmol/L 03/12/2024 5:52 PM EST [facility] LAB[facility]AT[facility] Comment: Sepsis Screening: Initial [...] ORDERABLES Final Resul t Performing Organization Address [facility] Co de Phone Number [facility] LABORATORY [address] [place] [address], [place] * (ABNORMAL) Smear Review (03/12/2024 12:49 PM EST) Platelet Estimate Decrease d(A) Adequate 03/12/2024 2:08 PM EST [facility] RBC Morphology Present( A) Normal, No clinically significant RBC morphology present (ICSH guidelines, 2015). 03/12/2024 2:08 PM EST [facility] LABORAT[facility] [place] Cells 2+(A) Not Present 03/12/2024 2:08 PM EST [facility] Blood Structure of peripheral vein / Unknown Venipuncture / Unknown 03/12/2024 12:49 PM EST 03/12/2024 1:00 PM EST us Delmy Ocampo MD LAB BLOOD ORDERABLES Final Resul t Performing Organization Address [facility]/ZIP Co de Phone Number [facility] [address] [place] [address], [place] * (ABNORMAL) CMP - Comprehensive Metabolic Panel (03/12/2024 12:49 PM EST) NA 140 135 - 145 mmol/L 03/12/2024 2:01 PM EST [facility] K 3.5 3.5 - 5.3 mmol/L 03/12/2024 2:01 PM EST [facility] Cl 105 98 - 107 mmol/L 03/12/2024 2:01 PM EST [facility] CO2 15(LL) 22 - 32 mmol/L 03/12/2024 2:01 PM [facility] CLINICAL PATHOLOGY LABORATORY Anion Gap 20(H) 5 - 15 03/12/2024 2:01 PM EST [facility] Glucose 130(H) 65 - 99 mg/dL 03/12/2024 2:01 PM EST [facility] Creatinine 2.18(H) 0.60 - 1.30 mg/dL 03/12/2024 2:01 PM EST [facility] Calcium 8.6 8.6 - 10.5 mg/dL 03/12/2024 2:01 PM [facility] CLINICAL PATHOLOGY LABORAT[facility] Total Protein 6.6 6.0 - 8.0 g/dL 03/12/2024 2:01 PM [facility] LAB[facility] Albumin 3.9 3.5 - 5.2 g/dL 03/12/2024 2:01 PM EST [facility] Bilirubin, Total 0.8 0.2 - 1.2 mg/dL 03/12/2024 2:01 PM [facility] Alkaline Phosphatase 85 35 - 129 U/L 03/12/2024 2:01 PM [facility] LAB[facility] AST 42(H) 10 - 40 U/L 03/12/2024 2:01 PM [facility] LAB[facility] ALT 36 10 - 40 U/L 03/12/2024 2:01 PM [facility] LAB[facility] BUN 37(H) 7 - 23 mg/dL 03/12/2024 2:01 PM [facility] LAB[facility] eGFR 33(L) >=60 mL/min/1 .73m2 03/12/2024 2:01 PM [facility] LABORAT[facility] Comment:The estimated glomer ular [...] in Diagnosing Kidney Disease . Globulin, Total 2.7 2.1 - 4.2 g/dL 03/12/2024 2:01 PM EST [facility] A/G Ratio 1.4(L) 1.5 - 3.0 03/12/2024 2:01 PM EST [facility] Blood Structure of peripheral vein / Unknown Venipuncture / Unknown 03/12/2024 12:49 PM EST 03/12/2024 12:59 PM EST us Delmy Ocampo MD LAB BLOOD ORDERABLES Final Resul t [facility] [address] [place] [address], * (ABNORMAL) CBC Auto Differential (03/12/2024 12:49 PM EST) WBC 3.4(L) 3.8 - 10.8 10*3/uL 03/12/2024 2:08 PM EST [facility] RBC 5.10 4.20 - 5.80 10*6/uL 03/12/2024 2:08 PM EST [facility] CLINICAL PATHOLOGY LABORATORY Hemoglobin 14.9 13.2 - 17.1 g/dL 03/12/2024 2:08 PM EST [facility] CLINICAL PATHOLOGY LABORATORY Hematocrit 43.1 38.5 - 50.0 % 03/12/2024 2:08 PM EST [facility] MCV 84.5 80.0 - 100.0 fL 03/12/2024 2:08 PM EST [facility] MCH 29.2 27.0 - 33.0 pg 03/12/2024 2:08 PM EST [facility] MCHC 34.6 32.0 - 36.0 g/dL 03/12/2024 2:08 PM EST [facility] RDW 12.9 11.0 - 15.0 % 03/12/2024 2:08 PM EST [facility] Platelets 112(L) 140 - 400 10*3/uL 03/12/2024 2:08 PM EST [facility] MPV 11.3 7.5 - 12.5 fL 03/12/2024 2:08 PM EST [facility] Neutrophil % 82.8 % 03/12/2024 2:08 PM EST [facility] Immature Grans % 0.6 0.0 - 0.9 % 03/12/2024 2:08 PM EST [facility] Lymphocyte % 9.6 % 03/12/2024 2:08 PM EST [facility] Monocyte % 6.7 % 03/12/2024 2:08 PM EST [facility] Eosinophil % 0.0 % 03/12/2024 2:08 PM EST [facility] Basophil % 0.3 % 03/12/2024 2:08 PM EST [facility] Neutrophil # 2.85 1.50 - 7.80 10*3/uL 03/12/2024 2:08 PM EST [facility] Immature Grans # <0.03 <=0.03 10*3/uL 03/12/2024 2:08 PM EST [facility] Lymphocyte # 0.30(L) 0.85 - 3.90 10*3/uL 03/12/2024 2:08 PM EST [facility] Monocyte # 0.20 0.20 - 0.95 10*3/uL 03/12/2024 2:08 PM EST [facility] CLINICAL PATHOLOGY LABORATORY Eosinophil # <0.03 0.02 - 0.50 10*3/uL 03/12/2024 2:08 PM EST [facility] PATHOLOG[facility] LABORATORY Basophil # <0.03 0.00 - 0.20 10*3/uL 03/12/2024 2:08 PM EST [facility] PATHOLOG[facility] LABORAT[facility] nRBC % 0.0 /100 WBCs 03/12/2024 2:08 PM EST [facility] [facility] CLINICAL PATHOLOGY LABORATORY nRBC # <0.01 <0.01 10*3/uL 03/12/2024 2:08 PM EST [facility] LAB[facility] Blood Structure of peripheral vein / Unknown Venipuncture / Unknown 03/12/2024 12:49 PM EST 03/12/2024 1:00 PM EST us Delmy Ocampo MD LAB BLOOD ORDERABLES Final Resul t [facility] LABOR[facility]ORY [address] [place] [address], * (ABNORMAL) NT-proBNP (03/12/2024 12:49 PM EST) Pro-B-Type Natriuretic Peptide 414(H) <300 pg/mL 03/12/2024 2:09 PM EST [facility] CLINICAL PATHOLOGY LABORATORY Comment: Patient Age:? Congestive [...] 12:49 PM EST 03/12/2024 1:38 PM EST us Delmy Ocampo MD LAB BLOOD ORDERABLES Final Resul t [facility] [address] [place] [address], * (ABNORMAL) Troponin T, High Sensitivity (03/12/2024 12:49 PM EST) Troponin T High Sensitivity 28(H) <=21 ng/L 03/12/2024 1:49 PM EST [facility] LABORAT[facility] Comment: Pq-Pmkzepqb-B level of 52 ng/L or higher at [...] be evaluated in line with the 4th [place] Definition of AMI. Troponin baseline and serial [...] ORDERABLES Final Resul t Performing Organization Address [facility] Co de Phone Number [phone] CL[facility]ICAL PATHOLOGY LABORATORY [address] [place] [address], [place] * Price Top (03/12/2024 12:49 PM EST) Extra Tube Hold for add-ons. 03/12/2024 5:05 PM EST [facility] Comment:Auto resulted. Blood Structure of peripheral vein / Unknown Venipuncture / Unknown 03/12/2024 12:49 PM EST 03/12/2024 12:58 PM EST Delmy Ocampo MD LAB BLOOD ORDERABLES Final Resul t Performing Organization Address [facility] de Phone Number [facility] LABORATORY [address] [place] [address], [place] * Light Blue Top (03/12/2024 12:49 PM EST) Extra Tube Hold for add-ons. 03/12/2024 5:05 PM EST [facility] Comment:Auto resulted. Blood Structure of peripheral vein / Unknown Venipuncture / Unknown 03/12/2024 12:49 PM EST 03/12/2024 12:58 PM EST Delmy Ocampo MD LAB BLOOD ORDERABLES Final Resul t Performing Organization Address [facility] Co de Phone Number [facility]ORY [address] [place] [address], [place] * Gold Top (03/12/2024 12:49 PM EST) Extra Tube Hold for add-ons. 03/12/2024 5:05 PM EST [facility] Comment:Auto resulted. Blood Structure of peripheral vein / Unknown Venipuncture / Unknown 03/12/2024 12:49 PM EST 03/12/2024 12:59 PM EST Delmy Ocampo MD LAB BLOOD ORDERABLES Final Resul t Performing Organization Address City/[facility]/ZIP Co de Phone Number [facility] [address] [place] [address], [place] * Red Top (03/12/2024 12:49 PM EST) Extra Tube Hold for add-ons. 03/12/2024 5:05 PM EST [facility] Comment:Auto resulted. Blood Structure of peripheral vein / Unknown Venipuncture / Unknown 03/12/2024 12:49 PM EST 03/12/2024 12:58 PM EST Delmy Ocampo MD LAB BLOOD ORDERABLES Final Resul t Performing Organization Address [facility] Co de Phone Number [facility] [address] [place] [address], [place] * Lavender Top (03/12/2024 12:49 PM EST) Extra Tube Hold for add-ons. 03/12/2024 5:05 PM EST [facility] Comment:Auto resulted. Blood Structure of peripheral vein / Unknown Venipuncture / Unknown 03/12/2024 12:49 PM EST 03/12/2024 1:00 PM EST Delmy Ocampo MD LAB BLOOD ORDERABLES Final Resul t Performing Organization Address City/[facility]/ZIP Co de Phone Number [facility] [address] [place] [address], [place] * Lavender Top (03/12/2024 12:49 PM EST) Extra Tube Hold for add-ons. 03/12/2024 5:05 PM EST [facility] Comment:Auto resulted. Blood Structure of peripheral vein / Unknown Venipuncture / Unknown 03/12/2024 12:49 PM EST 03/12/2024 1:00 PM EST Delmy Ocampo MD LAB BLOOD ORDERABLES Final Resul t Performing Organization Address [facility]/ZIP Co de Phone Number [facility] [address] [place] [address], [place] * Light Green Top (03/12/2024 12:49 PM EST) Pathologist [facility] Extra Tube Hold for add-ons. 03/12/2024 5:05 PM EST [facility] Comment:Auto resulted. Blood Structure of peripheral vein / Unknown Venipuncture / Unknown 03/12/2024 12:49 PM EST 03/12/2024 12:59 PM EST us Delmy Ocampo MD LAB BLOOD ORDERABLES Final Resul t Performing Organization Address [facility] de Phone Number [facility] [address] [place] [address], * (ABNORMAL) POCT I-STAT Lactate W/VBG, interfaced (03/12/2024 12:40 PM EST) Sample Type, POCT Venous 03/12/2024 12:43 PM EST [facility] Lactate, POCT 3.58(H) 0.9 - 1.7 mmol/L 03/12/2024 12:43 PM EST [facility] pH, POCT 7.54(H) 7.31 - 7.41 pH 03/12/2024 12:43 PM EST [facility] pCO2, POCT 16.1(L) 41 - 51 mm Hg 03/12/2024 12:43 PM EST [facility] pO2, POCT 33(L) 35 - 40 mm Hg 03/12/2024 12:43 PM EST [facility] Base Excess, POCT -9(L) 0 - 3 mmol/L 03/12/2024 12:43 PM EST [facility] HCO3, POCT 13.7(L) 23 - 28 mmol/L 03/12/2024 12:43 PM EST [facility] TCO2, POCT 14(LL) 24 - 29 mmol/L 03/12/2024 12:43 PM EST [facility] Saturated O2, POCT 75 70 - 75 % 03/12/2024 12:43 PM EST [facility] Javon's Test, POCT N/A 03/12/2024 12:43 PM EST [facility] Blood 03/12/2024 12:4 0 PM EST 03/12/2024 12:43 PM EST us Delmy Ocampo MD LAB POCT ORDERABLES - DEVICE Fin al Result [facility] [address] [place] [address], [place] * HEART & VASCULAR - SCANNED (03/12/2024) Anatomical Region Laterality Modality Other us Onbase Scan Christa SCANNED PROCEDURES Final Resu lt * HEART & VASCULAR - SCANNED (03/12/2024) Anatomical Region Laterality Modality Other us Onbase Scan Christa SCANNED PROCEDURES Final Resu lt documented in this encounter Visit Diagnoses Diagnosis COVID- Primary COVID-19 Other hyperlipidemia COVID Essential hypertension Unspecified essential hypertension Heart replaced by transplant (HCC) Heart replaced by transplant Subclinical hypothyroidism Other specified acquired hypothyroidism Dyslipidemia Other and unspecified hyperlipidemia Acute kidney injury superimposed on CKD (HCC) Sarcoidosis Gastroesophageal reflux disease without esophagitis Esophageal reflux Lactic acidosis Acidosis documented in this encounter Admitting Diagnoses Diagnosis COVID-19 documented in this encounter Administered Medications Inactive Administered Medications - up to 3 most recent administrations Medication Order MAR Action Action Date Dose Rate Site acetaminophen (TYLENOL) tablet 650 mg 650 mg, oral, Every 4 hours PRN, Mild pain or 1-3 (on the numeric pain scale), Moderate pain or 4-6 (on the numeric pain scale), Severe pain or 7-10 (on the numeric pain scale), headache, fever, pain, Starting on Tue03/12/24 at 2041, Until Tue03/16/24 at 1727, To be given in conjunction with other pain medications if ordered as part of multi-modal therapy. amLODIPine (NORVASC) tablet 2.5 mg 2.5 mg, oral, Daily, First dose on Tue03/15/24 at 1245, Until Discontinued, Hold for SBP less than 100 mmHg. Given 03/16/2024 9:14 AM EST 2.5 mg Given 03/15/2024 1:13 PM EST 2.5 mg aspirin EC tablet 81 mg 81 mg, oral, Daily, First dose on Tue03/13/24 at 0900, Until Discontinued, Do not crush. Given 03/16/2024 9:14 AM EST 8 1 mg Given 03/15/2024 8:39 AM EST 81 mg Given 03/14/2024 9:36 AM EST 81 mg atorvastatin (LIPITOR) tablet 40 mg 40 mg, oral, Daily, First dose on Tue03/13/24 at 0600, Until Discontinued Given 03/15/2024 9:40 PM EST 40 mg Given 03/14/2024 9:17 PM EST 40 mg Given 03/13/2024 5:09 AM EST 40 mg calcium carbonate-vitamin D3 500 mg-200 units 1 tablet 1 tablet, oral, Daily, First dose on Tue03/13/24 at 0900, Until Discontinued Given 03/16/2024 9:14 AM EST 1 tablet Given 03/15/2024 8:39 AM EST 1 tablet Given 03/14/2024 9:35 AM EST 1 tablet citalopram (CeleXA) tablet 20 mg 20 mg, oral, Daily, First dose on Tue03/13/24 at 0900, Until Discontinued Given 03/16/2024 9:14 AM EST 20 mg Given 03/15/2024 8:39 AM EST 20 mg Given 03/14/2024 9:38 AM EST 20 mg cycloSPORINE modified (GENGRAF, NEORAL) capsule 75 mg 75 mg, oral, 2 times daily, First dose on Tue03/12/24 at 1250, Until Discontinued, Hazardous Medication. Use PPE when handling. Given 03/16/2024 9:13 AM EST 75 mg Given 03/15/2024 9:40 PM EST 75 mg Given 03/15/2024 2:22 PM EST 75 mg dexAMETHasone (DECADRON) tablet 6 mg 6 mg, oral, Daily, First dose (after last modification) on Tue03/13/24 at 0900, 7 doses, Last dose on Tue03/19/24 at 0900 Given 03/16/2024 9:14 AM EST 6 mg Given 03/15/2024 8:39 AM EST 6 mg Given 03/14/2024 9:36 AM EST 6 mg doxycycline monohydrate (MONODOX) capsule 100 mg 100 mg, oral, Every 12 hours scheduled, First dose on Tue03/12/24 at 2140, 10 doses, Last dose on Tue03/17/24 at 0900, Administer with at least 8 oz of water and have patient sit up for at least 30 minutes. May give with meals to decrease GI upset., Reason for Therapy: Bacterial Infection Suspected, Indication: Pneumonia Given 03/13/2024 8:05 AM EST 100 mg Given 03/12/2024 9:41 PM EST 100 mg ferrous sulfate EC tablet 325 mg 325 mg, oral, Daily, First dose on Tue03/13/24 at 0900, Until Discontinued, Do not chew or crush. Administer with water or juice between meals for maximum absorption. May administer with food if GI upset occurs; do not administer with milk or milk products. Given 03/16/2024 9:13 AM EST 325 m g Given 03/15/2024 8:39 AM EST 325 mg Given 03/14/2024 9:37 AM EST 325 mg guaiFENesin (ROBITUSSIN) 100 mg/5 mL syrup 200 mg 200 mg, oral, Every 4 hours PRN, cough, Starting on Tue03/12/24 at 2047, Until Tue03/16/24 at 1727 Given 03/14/2024 9:34 AM EST 200 mg heparin subcutaneous injection 5,000 Units 5,000 Units, subcutaneous, Every 8 hours scheduled, First dose on Tue03/12/24 at 2200, Until Discontinued Given 03/16/2024 6:10 AM EST 5,000 Units Right Lower Abdomen Given 03/15/2024 9:40 PM EST 5,000 Units L eft Lower Abdomen Given 03/15/2024 1:13 PM EST 5,000 Units R ight Lower Abdomen lactated Ringer's (LR) bolus 500 mL 500 mL, intravenous, Once, On Tue03/12/24 at 1710, 1 dose New Bag/Syringe 03/12/2024 5:10 PM EST 500 mL magnesium sulfate 2 g in SWFI 50 mL IVPB premix 2 g, intravenous, at 25 mL/hr, Administer over 2 Hours, Once, On Tue03/12/24 at 2225, 1 dose, Total dose = 2 g New Bag/Syringe 03/12/2024 10:34 PM EST 2 g 25 mL/hr mycophenolate mofetil (CELLCEPT) capsule 500 mg 500 mg, oral, Every 12 hours scheduled, First dose on Tue03/12/24 at 1250, Until Discontinued, Give on empty stomach 2 hours before or after Ca+, Mg+, Al- based antacids. Hazardous Medication. Use PPE when handling. Given 03/16/2024 6:10 AM EST 500 mg Given 03/15/2024 5:13 PM EST 500 mg Given 03/15/2024 6:08 AM EST [address] (PROTONIX) tablet 40 mg 40 mg, oral, Daily, First dose on Tue03/13/24 at 0900, Until Discontinued, Do not crush. Given 03/16/2024 9:21 AM EST 4 0 mg Given 03/15/2024 8:39 AM EST 40 mg Given 03/14/2024 9:34 AM EST 40 mg potassium chloride ER (KLOR-CON) tablet 40 mEq 40 mEq, oral, Once, On Tue03/12/24 at 2225, 1 dose, Do not crush. Given 03/12/2024 10:34 PM EST 40 mEq predniSONE (DELTASONE) tablet 5 mg 5 mg, oral, Daily, First dose on Tue03/12/24 at 1250, Until Discontinued Given 03/12/2024 1:14 PM EST 5 mg remdesivir (VEKLURY) 100 mg in 0.9% NaCl 100 mL Mini-Bag Plus 100 mg, intravenous, at 200 mL/hr, Administer over 30 Minutes, Once, On Tue03/12/24 at 1500, 1 dose, Bag 1 of 2; Total dose = 200 mg. Administer entire bag volume, followed by 30 mL NS flush. If not using dedicated line, flush line with at least 30 mL NS prior to infusion. New Bag/Syringe 03/12/2024 4:31 PM EST 100 mg 200 mL/hr remdesivir (VEKLURY) 100 mg in 0.9% NaCl 100 mL Mini-Bag Plus 100 mg, intravenous, at 200 mL/hr, Administer over 30 Minutes, Once, On Tue03/12/24 at 1530, 1 dose, Bag 2 of 2; Total dose = 200 mg. Administer entire bag volume, followed by 30 mL NS flush. If not using dedicated line, flush line with at least 30 mL NS prior to infusion. New Bag/Syringe 03/12/2024 5:09 PM EST 100 mg 200 mL/hr remdesivir (VEKLURY) 100 mg in 0.9% NaCl 100 mL Mini-Bag Plus 100 mg, intravenous, at 200 mL/hr, Administer over 30 Minutes, Every 24 hours, First dose on Tue03/13/24 at 1500, 4 doses, Last dose on Tue03/16/24 at 1500, Administer entire bag volume, followed by 30 mL NS flush. If not using dedicated line, flush line with at least 30 mL NS prior to infusion. New Bag/Syringe 03/13/2024 1:53 PM EST 100 mg 200 mL/hr remdesivir (VEKLURY) 100 mg in 0.9% NaCl 100 mL Mini-Bag Plus 100 mg, intravenous, at 200 mL/hr, Administer over 30 Minutes, Every 24 hours, First dose (after last modification) on Tue03/14/24 at 0800, 3 doses, Last dose on Tue03/16/24 at 0800, Administer entire bag volume, followed by 30 mL NS flush. If not using dedicated line, flush line with at least 30 mL NS prior to infusion. New Bag/Syringe 03/16/2024 9:11 AM EST 100 mg 200 mL/hr New Bag/Syringe 03/15/2024 7:54 AM EST 100 mg 200 mL/h r New Bag/Syringe 03/14/2024 9:50 AM EST 100 mg 200 mL/h r sodium chloride 0.9% flush 2.5-10 mL 2.5-10 mL, intravenous, See admin instructions, Starting on Tue03/12/24 at 2039, Until Tue03/16/24 at 1727, Flush each lumen with a pulsatile motion with a minimum of 2.5 mL before and after use. Please note which lumen(s) have been flushed in comments section. sodium chloride 0.9% flush 2.5-10 mL 2.5-10 mL, intravenous, Every 12 hours scheduled, First dose on Tue03/12/24 at 2100, Until Discontinued, Flush each lumen with a pulsatile motion with a minimum of 2.5 mL every 12 hours. Please note which lumen(s) have been flushed in comments section. Given 03/15/2024 9:40 PM EST 10 mL Given 03/15/2024 8:41 AM EST 3 mL Given 03/14/2024 9:19 PM EST 10 mL sodium chloride 0.9% flush 2.5-10 mL 2.5-10 mL, intravenous, See admin instructions, Starting on Tue03/12/24 at 2047, Until Tue03/16/24 at 1727, Flush each lumen with a pulsatile motion with a minimum of 2.5 mL before and after use. Please note which lumen(s) have been flushed in comments section. sodium chloride 0.9% flush 2.5-10 mL 2.5-10 mL, intravenous, Every 12 hours scheduled, First dose on Tue03/12/24 at 2100, Until Discontinued, Flush each lumen with a pulsatile motion with a minimum of 2.5 mL every 12 hours. Please note which lumen(s) have been flushed in comments section. Given 03/16/2024 9:15 AM EST 10 mL Given 03/15/2024 9:39 PM EST 10 mL Given 03/15/2024 8:40 AM EST 3 mL sodium chloride 0.9% flush 30 mL 30 mL, intravenous, Every 24 hours, First dose on Tue03/12/24 at 1530, 5 doses, Last dose on Tue03/16/24 at 1530, When the administration of remdesivir solution is complete, flush the IV line with at least 30 mL of NS to ensure that all the remdesivir solution has been administered. Given 03/13/2024 3:30 PM EST 30 mL Given 03/12/2024 3:30 PM EST 30 mL sodium chloride 0.9% flush 30 mL 30 mL, intravenous, Every 24 hours, First dose (after last modification) on Tue03/14/24 at 0830, 3 doses, Last dose on Tue03/16/24 at 0830, When the administration of remdesivir solution is complete, flush the IV line with at least 30 mL of NS to ensure that all the remdesivir solution has been administered. Given 03/16/2024 9:15 AM EST 3 0 mL Given 03/15/2024 8:36 AM EST 30 mL Given 03/14/2024 10:45 AM EST 30 mL documented in this encounter Active and Recently Administered Medications Times are shown in EST. Scheduled Medication Order 03/14/2024 03/15/2024 03/16/2024 amLODIPine (NORVASC) tablet 2.5 mg 2.5 mg, oral, Daily, First dose on Tue03/15/24 at 1245, Until Discontinued, Hold for SBP less than 100 mmHg. 1313 (Given - Provider: Melisa Dyer RN) 0914 (Given - Provider: Angela Clay, URIEL) aspirin EC tablet 81 mg 81 mg, oral, Daily, First dose on Tue03/13/24 at 0900, Until Discontinued, Do not crush. 0936 (Given - Provider: Patt Goldman RN) 0839 (Given - Provider: Melisa Dyer RN) 0914 (Given - Provider: Angela Clay RN) atorvastatin (LIPITOR) tablet 40 mg 40 mg, oral, Daily, First dose on Tue03/13/24 at 0600, Until Discontinued 2116 (Given - Provider: Ilda Zelaya RN) 2139 (Given - Provider: Jaz Christie RN) calcium carbonate-vitamin D3 500 mg-200 units 1 tablet 1 tablet, oral, Daily, First dose on Tue03/13/24 at 0900, Until Discontinued 0935 (Given - Provider: Patt Goldman RN) 0839 (Given - Provider: Melisa Dyer RN) 0914 (Given - Provider: Angela Clay RN) citalopram (CeleXA) tablet 20 mg 20 mg, oral, Daily, First dose on Tue03/13/24 at 0900, Until Discontinued 0938 (Given - Provider: Patt Goldman RN) 0839 (Given - Provider: Melisa Dyer RN) 0914 (Given - Provider: Angela Clay RN) cycloSPORINE modified (GENGRAF, NEORAL) capsule 75 mg 75 mg, oral, 2 times daily, First dose on Tue03/12/24 at 1250, Until Discontinued, Hazardous Medication. Use PPE when handling. 0938 (Given - Provider: Patt Goldman RN)1753 (Given - Provider: Patt Goldman RN) 0837 (Given - Provider: Melisa Dyer RN)1422 (Given - Provider: Melisa Dyer RN - Comment: patient dropped am dose)0 (Given - Provider: Jaz Christie RN) 0913 (Given - Provider: Angela Clay RN) dexAMETHasone (DECADRON) tablet 6 mg 6 mg, oral, Daily, First dose (after last modification) on Tue03/13/24 at 0900, 7 doses, Last dose on Tue03/19/24 at 0900 0936 (Given - Provider: Patt Goldman RN) 0839 (Given - Provider: Melisa Dyer RN) 0914 (Given - Provider: Angela Clay RN) ferrous sulfate EC tablet 325 mg 325 mg, oral, Daily, First dose on Tue03/13/24 at 0900, Until Discontinued, Do not chew or crush. Administer with water or juice between meals for maximum absorption. May administer with food if GI upset occurs; do not administer with milk or milk products. 0937 (Given - Provider: Patt Goldman RN) 0839 (Given - Provider: Melisa Dyer RN) 0913 (Given - Provider: Angela Clay RN) heparin subcutaneous injection 5,000 Units 5,000 Units, subcutaneous, Every 8 hours scheduled, First dose on Tue03/12/24 at 2200, Until Discontinued 0617 (Given - Provider: Breanna Paul RN)1541 (Given - Provider: Patt Goldman RN)2117 (Given - Provider: Ilda Zelaya, URIEL) 0608 (Given - Provider: Ilda Zelaya RN)1313 (Given - Provider: Melisa Dyer, URIEL)2140 (Given - Provider: Jaz Christie, URIEL) 0610 (Given - Provider: Jaz Christie RN)1400 (Due) mycophenolate mofetil (CELLCEPT) capsule 500 mg 500 mg, oral, Every 12 hours scheduled, First dose on Tue03/12/24 at 1250, Until Discontinued, Give on empty stomach 2 hours before or after Ca+, Mg+, Al- based antacids. Hazardous Medication. Use PPE when handling. 0615 (Given - Provider: Breanna Paul RN)1753 (Given - Provider: Patt Goldman RN) 0608 (Given - Provider: Ilda Zelaya RN)1713 (Given - Provider: Virgie Hwang RN) 0610 (Given - Provider: Jaz Christie RN) pantoprazole DR (PROTONIX) tablet 40 mg 40 mg, oral, Daily, First dose on Tue03/13/24 at 0900, Until Discontinued, Do not crush. 0934 (Given - Provider: Patt Goldman RN) 0839 (Given - Provider: Melisa Dyer, URIEL) 0921 (Given - Provider: Angela Clay RN) remdesivir (VEKLURY) 100 mg in 0.9% NaCl 100 mL Mini-Bag Plus (COMPLETED)(Linked Group 1) 100 mg, intravenous, at 200 mL/hr, Administer over 30 Minutes, Every 24 hours, First dose (after last modification) on Tue03/14/24 at 0800, 3 doses, Last dose on Tue03/16/24 at 0800, Administer entire bag volume, followed by 30 mL NS flush. If not using dedicated line, flush line with at least 30 mL NS prior to infusion. 0950 (New Bag/Syringe - Provider: Patt Goldman RN)1020 (Stopped - Provider: Patt Goldman RN) 0754 (New Bag/Syringe - Provider: Melisa Dyer RN)0824 (Stopped - Provider: Melisa Dyer RN) 0911 (New Bag/Syringe - Provider: Angela Clay RN)0941 (Stopped - Provider: Angela Clay RN) sodium chloride 0.9% flush 2.5-10 mL(Linked Group 2) 2.5-10 mL, intravenous, See admin instructions, Starting on Tue03/12/24 at 2038, Until Tue03/16/24 at 172, Flush each lumen with a pulsatile motion with a minimum of 2.5 mL before and after use. Please note which lumen(s) have been flushed in comments section. sodium chloride 0.9% flush 2.5-10 mL(Linked Group 2) 2.5-10 mL, intravenous, Every 12 hours scheduled, First dose on Tue03/12/24 at 2100, Until Discontinued, Flush each lumen with a pulsatile motion with a minimum of 2.5 mL every 12 hours. Please note which lumen(s) have been flushed in comments section. 0951 (Given - Provider: Patt Goldman RN)211 (Given - Provider: Ilda Zelaya RN) 0841 (Given - Provider: Melisa Dyer RN)2140 (Given - Provider: Jaz Christie RN) 0900 (Not Given - Provider: Angela Clay RN - Reason: Other - See Comment) sodium chloride 0.9% flush 2.5-10 mL(Linked Group 3) 2.5-10 mL, intravenous, See admin instructions, Starting on Tue03/12/24 at 204, Until Tue03/16/24 at 1727, Flush each lumen with a pulsatile motion with a minimum of 2.5 mL before and after use. Please note which lumen(s) have been flushed in comments section. sodium chloride 0.9% flush 2.5-10 mL(Linked Group 3) 2.5-10 mL, intravenous, Every 12 hours scheduled, First dose on Tue03/12/24 at 2100, Until Discontinued, Flush each lumen with a pulsatile motion with a minimum of 2.5 mL every 12 hours. Please note which lumen(s) have been flushed in comments section. 0951 (Given - Provider: Patt Goldman, URIEL)2118 (Given - Provider: Ilda Zelaya RN) 0840 (Given - Provider: Melisa Dyer, URIEL)2138 (Given - Provider: Jaz Christie, RN) 0915 (Given - Provider: Angela Clay, URIEL) sodium chloride 0.9% flush 30 mL (COMPLETED)(Linked Group 1) 30 mL, intravenous, Every 24 hours, First dose (after last modification) on Tue03/14/24 at 0830, 3 doses, Last dose on Tue03/16/24 at 0830, When the administration of remdesivir solution is complete, flush the IV line with at least 30 mL of NS to ensure that all the remdesivir solution has been administered. 1045 (Given - Provider: Patt Goldman RN) 0836 (Given - Provider: Melisa Dyer, URIEL) 0915 (Given - Provider: Angela Clay RN) PRN Medication Order 03/14/2024 03/15/2024 03/16/2024 acetaminophen (TYLENOL) tablet 650 mg 650 mg, oral, Every 4 hours PRN, Mild pain or 1-3 (on the numeric pain scale), Moderate pain or 4-6 (on the numeric pain scale), Severe pain or 7-10 (on the numeric pain scale), headache, fever, pain, Starting on Tue03/12/24 at 204, Until Tue03/16/24 at 1727, To be given in conjunction with other pain medications if ordered as part of multi-modal therapy. guaiFENesin (ROBITUSSIN) 100 mg/5 mL syrup 200 mg 200 mg, oral, Every 4 hours PRN, cough, Starting on Tue03/12/24 at 204, Until Tue03/16/24 at 1727 0934 (Given - Provider: Patt Goldman RN) Linked Groups Order Group 1: remdesivir (VEKLURY) 100 mg in 0.9% NaCl 100 mL Mini-Bag Plus (COMPLETED)Jump to med 100 mg, intravenous, at 200 mL/hr, Administer over 30 Minutes, Every 24 hours, First dose (after last modification) on Tue03/14/24 at 0800, 3 doses, Last dose on Tue03/16/24 at 0800, Administer entire bag volume, followed by 30 mL NS flush. If not using dedicated line, flush line with at least 30 mL NS prior to infusion. And sodium chloride 0.9% flush 30 mL (COMPLETED)Jump to med 30 mL, intravenous, Every 24 hours, First dose (after last modification) on Tue03/14/24 at 0830, 3 doses, Last dose on Tue03/16/24 at 0830, When the administration of remdesivir solution is complete, flush the IV line with at least 30 mL of NS to ensure that all the remdesivir solution has been administered. Group 2: IV Peripheral Line Care (CANCELED) Until discontinued, Starting on Tue03/12/24 at 2040, Until Specified, Insert/Replace: 96 hours for non-flexion, sterile IVs, 48 hours for flexion IVs, and 24 hours for non-sterile field IVs, Blood Draw: With insertion only And sodium chloride 0.9% flush 2.5-10 mLJump to med 2.5-10 mL, intravenous, See admin instructions, Starting on Tue03/12/24 at 2039, Until Tue03/16/24 at 1727, Flush each lumen with a pulsatile motion with a minimum of 2.5 mL before and after use. Please note which lumen(s) have been flushed in comments section. And sodium chloride 0.9% flush 2.5-10 mLJump to med 2.5-10 mL, intravenous, Every 12 hours scheduled, First dose on Tue03/12/24 at 2100, Until Discontinued, Flush each lumen with a pulsatile motion with a minimum of 2.5 mL every 12 hours. Please note which lumen(s) have been flushed in comments section. Group 3: IV Peripheral Line Care (CANCELED) Until discontinued, Starting on Tue03/12/24 at 204, Until Specified, Insert/Replace: 96 hours for non-flexion, sterile IVs, 48 hours for flexion IVs, and 24 hours for non-sterile field IVs, Blood Draw: With insertion only And sodium chloride 0.9% flush 2.5-10 mLJump to med 2.5-10 mL, intravenous, See admin instructions, Starting on Tue03/12/24 at 2047, Until Tue03/16/24 at 1727, Flush each lumen with a pulsatile motion with a minimum of 2.5 mL before and after use. Please note which lumen(s) have been flushed in comments section. And sodium chloride 0.9% flush 2.5-10 mLJump to med 2.5-10 mL, intravenous, Every 12 hours scheduled, First dose on Tue03/12/24 at 2100, Until Discontinued, Flush each lumen with a pulsatile motion with a minimum of 2.5 mL every 12 hours. Please note which lumen(s) have been flushed in comments section. documented in this encounter Additional Health Concerns Infection Onset Date Last Indicated Resolved Time COVID-19 - Confirmed infection 03/12/2024 03/12/2024 documented as of this encounter Care Teams Typing Bookkeeper Relationship Specialty Start Date End Date Patient, Has No Pcp Or Ref DO NOT EDIT THIS RECORD VIA PROVIDER ON THE FLY PCP - General Dental Surgeon 09/26/23 documented as of this encounter
--- OUTSIDE RECORDS SUMMARY | 2024-03-29 15:49 | XMS_ITS | Encounter Summary ---
Author Organization [facility] Address [address] [place] [address] Care Team Providers Care Talent Rep Name Role Phone Patient, Has No Pcp Or Ref Primary Care Provider Unavailable Encounter Details Date Type Department Care Team (Late st Contact Info) Description 12/01/2021 Orders Only [facility] Nuclear Medicine [address] [place] [id number] Nino Gautam MD [address] [place] [id number] Social History Tobacco Use Types Packs/Day Years [...] Info) Description 04/24/2024 1:00 PM EST Follow-Up [facility] 4th floor Cardiology Medicine [address] [place] [id number] Clean Up Supervisor: Mariah Matt 05/24/2024 10:30 AM EDT Follow-Up [address] floor Cardiology Medicine [address] [place] [id number] Clean Up Supervisor: Mariah Matt 06/25/2024 1:15 PM EDT Follow-Up [facility] 4th Floor [address] [facility], [place] [id number] Clean Up Supervisor: Diane Sofia PA [address] [place] [address] documented as of this encounter Visit Diagnoses Not on filedocumented in this encounter Additional Health Concerns Infection Onset Date Last Indicated Resolved Time COVID-19 - Confirmed infection 03/12/2024 03/12/2024 documented as of this encounter Care Teams Talent Rep Relationship Specialty Start Date End Date Patient, Has No Pcp Or Ref DO NOT EDIT THIS RECORD VIA PROVIDER ON THE FLY PCP - General Floorman 09/26/23 documented as of this encounter
--- OUTSIDE RECORDS SUMMARY | 2024-03-29 15:49 | XMS_ITS | Encounter Summary ---
Author Organization [facility] Address [address] [place] [address] Care Team Providers Care Manager Management Name Role Phone Patient, Has No Pcp Or Ref Primary Care Provider Unavailable Reason for Visit * Reason Onset Date Comments requesting a letter 01/16/2020 Encounter Details Date Type Department Care Team (Late st Contact Info) Description 01/16/2020 Telephone [facility] Central Scheduling Department [address] [place] [address] Telephone Intake, Staff requesting a letter Social History Tobacco Use Types Packs/Day Years [...] AM EST documented as of this encounter Miscellaneous Notes * Telephone Encounter - Karen Mondragon - 01/16/2020 10:20 AM EST Pt of Dr. 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 High risk for Covid. Please call pt back at [phone]. Or mail letter to mail address documented in this encounter Plan of Treatment Upcoming Encounters Date Type Department Care Team (Late st Contact Info) Description 04/24/2024 1:00 PM EST Follow-Up [facility] 4th floor Cardiology Medicine [address] [place], [place] [id number] Patient Registration Supervisor: Mariah Matt 05/24/2024 10:30 AM EDT Follow-Up [facility] 4th floor Cardiology Medicine [address] [place] [id number] Patient Registration Supervisor: Mariah Matt 06/25/2024 1:15 PM EDT Follow-Up [facility] 4th Floor [address] [facility], [place] [address] Patient Registration Supervisor: Diane Sofia PA [address] [place] [address] documented as of this encounter Visit Diagnoses Not on filedocumented in this encounter Additional Health Concerns Infection Onset Date Last Indicated Resolved Time COVID-19 - Confirmed infection 03/12/2024 03/12/2024 documented as of this encounter Care Teams Manager Management Relationship Specialty Start Date End Date Patient, Has No Pcp Or Ref DO NOT EDIT THIS RECORD VIA PROVIDER ON THE FLY PCP - General Mirror Installer 09/26/23 documented as of this encounter
--- OUTSIDE RECORDS SUMMARY | 2024-03-29 15:49 | XMS_ITS | Encounter Summary ---
Author Organization [facility] Address [address] [place] [address] Care Team Providers Care Naphthalene Operator Name Role Phone Patient, Has No Pcp Or Ref Primary Care Provider Unavailable Encounter Details Date Type Department Care Team (Late st Contact Info) Description 02/09/2024 myChart Message [address] floor Cardiology Medicine [address] [place] [address] [phone] Inside Tester: Jerrell Christopher MD [address] [place] [address] [phone] Cardiac cath tomorrow Social History Tobacco Use Types Packs/Day Years [...] Info) Description 04/24/2024 1:00 PM EST Follow-Up [address] floor Cardiology Medicine [address] [place] [address] Inside Tester: Mariah Matt 05/24/2024 10:30 AM EDT Follow-Up [address] floor Cardiology Medicine [address] [place] [address] Inside Tester: Mariah Matt 06/25/2024 1:15 PM EDT Follow-Up [facility] 4th Floor [address] [facility], Fourth [place] [address] Inside Tester: Diane Sofia PA [address] [place] [address] documented as of this encounter Visit Diagnoses Not on filedocumented in this encounter Care Teams Naphthalene Operator Relationship Specialty Start Date End Date Patient, Has No Pcp Or Ref DO NOT EDIT THIS RECORD VIA PROVIDER ON THE FLY PCP - General Webfed Offset Press Operator 09/26/23 documented as of this encounter
--- OUTSIDE RECORDS SUMMARY | 2024-03-29 15:49 | XMS_ITS | Encounter Summary ---
Author Organization [facility] Address [address] [place] [address] Care Team Providers Care Hoop Coiling Machine Operator Name Role Phone Patient, Has No Pcp Or Ref Primary Care Provider Unavailable Encounter Details Date Type Department Care Team (Late st Contact Info) Description 03/20/2024 Telephone [facility] 4th floor Cardiology Medicine [address] [place] [phone] Route Sales Manager: Mariah Rothman, Stanislav Krik MD [address] [place] [phone] Social History Tobacco Use Types Packs/Day Years [...] encounter Miscellaneous Notes * Telephone Encounter - Lauren Crow - 03/23/2024 11:09 AM EST Pt had labs done about 30min ago. I faxed a request for them to fax back today's results.I will scan and keep you posted * Telephone Encounter - Jermaine Avendano - 03/23/2024 9:08 AM EST Spoke with [facility], they are faxing this over now. * Telephone Encounter - Lauren Yoo Tristin - 03/20/2024 9:48 AM EST Hi, Pt of Dr. Rothman. S/p Transplant 20yrs. He was dx with covid last week. He was admitted/discharged. His Losartan was held. He os calling to see when he can start it. Labs done inpt. He can be reached at [phone]. Kendra Chen documented in this encounter Plan of Treatment Upcoming Encounters Date Type Department Care Team (Late st Contact Info) Description 04/24/2024 1:00 PM EST Follow-Up [facility] 4th floor Cardiology Medicine [address] [place] [address] Route Sales Manager: Mariah Matt 05/24/2024 10:30 AM EDT Follow-Up [facility] 4th floor Cardiology Medicine [address] [place] [address] Route Sales Manager: Mariah Matt 06/25/2024 1:15 PM EDT Follow-Up [facility] 4th Floor [address] [place] [address], [place] [address] Route Sales Manager: Diane Sofia PA [address] [place] [address] documented as of this encounter Visit Diagnoses Not on filedocumented in this encounter Additional Health Concerns Infection Onset Date Last Indicated Resolved Time COVID-19 - Confirmed infection 03/12/2024 03/12/2024 documented as of this encounter Care Teams Hoop Coiling Machine Operator Relationship Specialty Start Date End Date Patient, Has No Pcp Or Ref DO NOT EDIT THIS RECORD VIA PROVIDER ON THE FLY PCP - General Stereo Equipment Installer 09/26/23 documented as of this encounter
--- OUTSIDE RECORDS SUMMARY | 2024-03-29 15:49 | XMS_ITS | Referral Summary ---
Author Organization [facility] Address [address] [place] [address] Care Team Providers Care Visual Merchandising Coordinator Name Role Phone Patient, Has No Pcp Or Ref Primary Care Provider Unavailable Encounters Date Type Department Care Team Description 03/21/2024 Refill [facility] 4th floor Cardiology Medicine [address] [place] [id number] Dress Operator: Stanislav Price MD 03/20/[address] floor Cardiology Medicine [address] [place] [phone] Dress Operator: Stanislav Price MD 03/12/2024 12:37 PM EST - 03/16/2024 3:25 PM EST Hospital Encounter [facility] Emergency Department [address] [place] [id number] Delmy Ocampo MD Pereira, Datson Marian, MD Thomas, Samuel, DO Madireddy, Shashidhar Reddy, MD COVID-19 (Primary Dx); Other hyperlipidemia; COVID Discharge Disposition: Home or Self Care () 02/10/2024 9:20 AM EST - 02/10/2024 10:29 AM EST Surgery [facility] Heart and Vascular Interventional Lab [address] [place] [id number] Jerrell Camarlilo MD Coronary angiography 02/10/2024 7:51 AM EST - 02/10/2024 3:08 PM EST Hospital Encounter [facility] Heart and Vascular Interventional Lab [address] [place] [phone] Jerrell Camarillo MD Heart replaced by transplant (HCC); Abnormal stress test Discharge Disposition: Home or Self Care () 02/09/2024 myChart Message [facility] 4th floor Cardiology Medicine [address] [place] [phone] Dress Operator: Jerrell Christopher MD Cardiac cath tomorrow from Last 3 Months Allergies Active Allergy Reactions Criticality Noted Date [...] ago and is presenting to hospital from [place] secondary to hypoxic respiratory failure initially requiring [...] ago and is presenting to hospital from [place] secondary to hypoxic respiratory failure initially requiring [...] ago and is presenting to hospital from [place] secondary to hypoxic respiratory failure initially requiring [...] Transplant nephrology consulted - Monitor BMP daily Assessment & Plan (03/14/2024 10:11 AM [...] Transplant nephrology consulted - Monitor BMP daily Assessment & Plan (03/13/2024 1:09 PM [...] history - Transplant nephrology consulted - Monitor [facility] daily Gastroesophageal reflux disease without esophagi tis [...] a very slight leukopenia. -lactic acid resolved Social History Tobacco Use Types Packs/Day Years [...] Info) Description 04/24/2024 1:00 PM EST Follow-Up [facility] 4th floor Cardiology Medicine [address] [place] [phone] Dress Operator: Mariah Matt 05/24/2024 10:30 AM EDT Follow-Up [facility] 4th floor Cardiology Medicine [address] [place] [phone] Dress Operator: Mariah Matt 06/25/2024 1:15 PM EDT Follow-Up [facility] 4th Floor [address] [facility] [place] [address] Dress Operator: Diane Sofia PA [address] [place] [address] Procedures * Due to [place] state law, this organization might not be [...] Abnormal stress test CARDIAC CATHETERIZATION Routine 02/10/20 24 11:24 AM [...] to Health Maintenance Results * Due to [place] state law, this organization might not be sharing negative HIV tests. * (ABNORMAL) Comprehensive Metabolic Panel (03/16/2024 10:24 AM EST) Only the most recent of5 resultswithin the time period is included. NA 139 135 - 145 mmol/L 03/16/2024 11:34 AM EST [facility] K 3.6 3.5 - 5.3 mmol/L 03/16/2024 11:34 AM EST [facility] [employer] [facility] Cl 104 98 - 107 mmol/L 03/16/2024 11:34 AM EST [employer] [facility] CO2 23 22 - 32 mmol/L 03/16/2024 11:34 AM EST [employer] [facility] Anion Gap 12 5 - 15 03/16/2024 11:34 AM EST [facility] Glucose 99 65 - 99 mg/dL 03/16/2024 11:34 AM EST [facility] [employer] [facility] Creatinine 1.38(H) 0.60 - 1.30 mg/dL 03/16/2024 11:34 AM EST [facility] [employer] [facility] Calcium 8.2(L) 8.6 - 10.5 mg/dL 03/16/2024 11:34 AM EST [facility] Total Protein 6.0 6.0 - 8.0 g/dL 03/16/2024 11:34 AM EST [facility] Albumin 3.5 3.5 - 5.2 g/dL 03/16/2024 11:34 AM EST [facility] Bilirubin, Total 0.8 0.2 - 1.2 mg/dL 03/16/2024 11:34 AM EST [facility] Alkaline Phosphatase 70 35 - 129 U/L 03/16/2024 11:34 AM EST [facility] AST 34 10 - 40 U/L 03/16/2024 11:34 AM EST [facility] ALT 41(H) 10 - 40 U/L 03/16/2024 11:34 AM EST [facility] BUN 41(H) 7 - 23 mg/dL 03/16/2024 11:34 AM EST [facility] [employer] [facility] eGFR 56(L) >=60 mL/min/1 .73m2 03/16/2024 11:34 AM EST [facility] Comment:The estimated glomer ular [...] - 4.2 g/dL 03/16/2024 11:34 AM EST [facility] [employer] [employer] [facility] A/G Ratio 1.4(L) 1.5 - 3.0 03/16/2024 11:34 AM EST [facility] Blood Structure of peripheral vein / Unknown Venipuncture / Unknown 03/16/2024 10:24 AM EST 03/16/2024 10:53 AM EST us Rico Landa MD LAB BLOOD ORDERABL ES Final Result [facility] [address] [place] [address], * (ABNORMAL) CBC Auto Differential (03/16/2024 7:28 AM EST) Only the most recent of5 resultswithin the time period is included. WBC 6.8 3.8 - 10.8 10*3/uL 03/16/2024 8:39 AM EST [facility] RBC 5.57 4.20 - 5.80 10*6/uL 03/16/2024 8:39 AM EST [facility] Hemoglobin 16.3 13.2 - 17.1 g/dL 03/16/2024 8:39 AM EST [facility] Hematocrit 47.8 38.5 - 50.0 % 03/16/2024 8:39 AM EST [facility] MCV 85.8 80.0 - 100.0 fL 03/16/2024 8:39 AM EST [facility] MCH 29.3 27.0 - 33.0 pg 03/16/2024 8:39 AM EST [facility] MCHC 34.1 32.0 - 36.0 g/dL 03/16/2024 8:39 AM EST [facility] RDW 12.9 11.0 - 15.0 % 03/16/2024 8:39 AM EST [facility] Platelets 115(L) 140 - 400 10*3/uL 03/16/2024 8:39 AM EST [facility] MPV 11.2 [...] - 0.20 10*3/uL 03/16/2024 8:39 AM EST [facility] nRBC % 0.0 /100 WBCs 03/16/2024 8:39 AM EST [facility] nRBC # <0.01 <0.01 10*3/uL 03/16/2024 8:39 AM EST [facility] Blood Structure of peripheral vein / Unknown Venipuncture / Unknown 03/16/2024 7:28 AM EST 03/16/2024 8:15 AM EST Andrew Edward DO LAB BLOOD ORDERABLES Final Resu lt Performing Organization Address City/[facility]/ZIP Co de Phone Number [facility] [address] [place] [address], * Price Top, Urine (03/15/2024 2:47 PM EST) Extra Tube Hold for add-ons. 03/15/2024 7:05 PM EST [facility] Comment:Auto resulted. Urine Urine specimen collection, clean catch / Unknown Non-Blood Collection / Unknown 03/15/2024 2:47 PM EST 03/15/2024 3:12 PM EST Rico Landa MD LAB URINE ORDERABL ES Final Result Performing Organization Address City/[facility]/ZIP Co de Phone Number [facility] [address] [place] [address], * Urinalysis W/Reflex to Microscopic & Culture (03/15/2024 2:47 PM EST) Color, Urine Yellow Colorless, Light Yellow, Yellow, Dark Yellow 03/15/2024 3:35 PM EST [facility] Clarity, Urine Clear Clear 03/15/2024 3:35 PM EST [facility] Specific [place], Urine 1.023 1.005 - 1.030 03/15/2024 3:35 PM EST [facility] pH, Urine 5.0 4.6 - 8.0 03/15/2024 3:35 PM EST [facility] Protein, Urine Negative Negative 03/15/2024 3:35 PM EST [facility] Glucose, Urine Negative Negative 03/15/2024 3:35 PM EST [facility] Ketones, Urine Negative Negative 03/15/2024 3:35 PM EST [facility] Bilirubin, Urine Negative Negative 03/15/2024 3:35 PM EST [facility] Blood, Urine Negative Negative 03/15/2024 3:35 PM EST [facility] Nitrite, Urine Negative Negative 03/15/2024 3:35 PM EST [facility] Urobilinogen, Urine Normal Normal 03/15/2024 3:35 PM EST [facility] Leukocyte Esterase, Urine Negative Negative 03/15/2024 3:35 PM EST [facility] Urine Urine specimen collection, clean catch / Unknown Non-Blood Collection / Unknown 03/15/2024 2:47 PM EST 03/15/2024 3:19 PM EST us Rico Landa MD LAB URINE ORDERABL ES Final Result [facility] [address] [place] [id number], * (ABNORMAL) Microalbumin, Random Urine with Creatinine (03/15/2024 2:47 PM EST) Microalbumin, Urine 6.0 mg/dL 03/15/2024 10:14 PM EST [facility] Creatinine, Urine 133 22 - 328 mg/dL 03/15/2024 10:14 PM EST [facility] Microalb/Creat Ratio, Random Urine 45.1(H) <30.0 mcg/mgCr 03/15/2024 10:14 PM EST [facility] Comment: Microalbumin Reference Range: Normal ? <30 mcg/mg Creatinine Microalbuminuria ? 30-300 mcg/mg Creatinine Clinical Albuminuria >300 mcg/mg Creatinine Reference: ADA Guideline. Diabetes Care. 2004;27 (suppl 1) Urine Urine specimen collection, clean catch / Unknown Non-Blood Collection / Unknown 03/15/2024 2:47 PM EST 03/15/2024 3:19 PM EST Rico Landa MD LAB URINE ORDERABL ES Final Result [facility] [address] [place] [address], [place] * (ABNORMAL) Sodium, Random Urine with Creatinine (03/13/2024 8:08 AM EST) Sodium, Urine 114 mmol/L 03/13/2024 8:43 AM EST [facility] Creatinine, Urine 36 22 - 328 mg/dL 03/13/2024 8:43 AM EST [facility] Sodium/Creatin ine, Urine Ratio 317(H) 23 - 229 mmol/gmCr 03/13/2024 8:43 AM EST [facility] Urine Voided urine specimen / Unknown Non-Blood Collection / Unknown 03/13/2024 8:08 AM EST 03/13/2024 8:14 AM EST Andrew Edward DO LAB URINE ORDERABLES Final Resu lt [facility] [address] [place] [address], [place] * Magnesium (03/13/2024 5:22 AM EST) Only the most recent of2 resultswithin the time period is included. MG 2.3 1.6 - 2.4 mg/dL 03/13/2024 6:03 AM EST [facility] Blood Structure of peripheral vein / Unknown Venipuncture / Unknown 03/13/2024 5:22 AM EST 03/13/2024 5:33 AM EST [email or web address] LAB BLOOD ORDERABLES Final Resu lt Performing Organization Address [facility] Co de Phone Number [employer] [facility] [address] [place] [address], * Lactic Acid, Plasma (03/13/2024 5:22 AM EST) Only the most recent of2 resultswithin the time period is included. Lactic Acid 1.2 0.5 - 1.9 mmol/L 03/13/2024 6:10 AM EST [facility] Comment: Sepsis Screening: Initial Lactate Level >2.0 mmol/L - Repeat Lactate Level within 3 hours. Initial Lactate Level >4.0 mmol/L - Repeat Lactate Level within 3 hours, Initiate Septic Shock Protocol. Blood Structure of peripheral vein / Unknown Venipuncture / Unknown 03/13/2024 5:22 AM EST 03/13/2024 5:29 AM EST [email or web address] LAB BLOOD ORDERABLES Final Resu lt Performing Organization Address [facility] Co de Phone Number [facility] [address] [place] [address], * ECG 12 lead (03/12/2024 9:25 PM EST) Only the most recent of2 resultswithin the time period is included. Ventricular Rate EKG 82 BPM MUSE EKG Atrial Rate 82 BPM MUSE EKG NM Interval 162 ms MUSE EKG QRS Interval 86 ms MUSE EKG QT Interval 420 ms MUSE EKG QTC Interval 490 ms MUSE EKG P [place] 17 degrees MUSE EKG R [place] 37 degrees MUSE EKG T Wave [place] 34 degrees MUSE EKG 03/12/2024 9:25 PM EST 03/18/2024 10:47 AM EST Impressions MUSE EKG - 03/18/2024 10:47 AM EST NORMAL SINUS RHYTHM NONSPECIFIC T WAVE ABNORMALITY PROLONGED QT INCOMPLETE RIGHT BUNDLE BRANCH BLOCK WHEN COMPARED WITH ECG OF 10-FEB-2024 08:08, T WAVE INVERSION NOW EVIDENT IN ANTERIOR LEADS QT HAS LENGTHENED Confirmed by Mariola Jacobs ([id number]) on 03/18/2024 10:47:13 AM Andrew Edward DO ECG ORDERABLES Final Result Performing Organization Address [facility] de Phone Number M[facility] EKG * (ABNORMAL) Lactic Acid, Plasma (03/12/2024 8:16 PM EST) Lactic Acid 2.4(H) 0.5 - 1.9 mmol/L 03/12/2024 8:52 PM EST [facility] Blood Structure of peripheral vein / Unknown Venipuncture / Unknown 03/12/2024 8:16 PM EST 03/12/2024 8:21 PM EST Delmy Ocampo MD LAB BLOOD ORDERABLES Final Resul t Performing Organization Address [facility] Phone Number [facility]ITALFil[facility] [facility] [address] [place] [address], [place] * (ABNORMAL) Lactic Acid, Plasma (w/Reflex if >2) (03/12/2024 5:15 PM EST) Lactic Acid 2.0(H) 0.5 - 1.9 mmol/L 03/12/2024 6:10 PM EST [employer] [facility] Comment:Specimen is hemolyze d, result may be falsely increased. Blood Structure of peripheral vein / Unknown Venipuncture / Unknown 03/12/2024 5:15 PM EST 03/12/2024 5:28 PM EST Delmy Ocampo MD LAB BLOOD ORDERABLES Final Resul t Performing Organization Address [facility] de Phone Number [facility] [address] [place] [address], * (ABNORMAL) Repeat Troponin #1 (03/12/2024 2:23 PM EST) Only the most recent of2 resultswithin the time period is included. Troponin T High Sensitivity 27(H) <=21 ng/L 03/12/2024 3:00 PM EST [facility] Comment: Ss-Gdlwuwaf-L level of 52 ng/L or higher at [...] be evaluated in line with the 4th [place] Definition of AMI. Troponin baseline and serial [...] ORDERABLES Final Resul t Performing Organization Address City/[facility]/ZIP Co de Phone Number [facility] [address] [place] [address], * Phosphorus (03/12/2024 2:23 PM EST) Phosphorus 2.8 2.5 - 4.5 mg/dL 03/12/2024 10:22 PM EST [facility] Blood Structure of peripheral vein / Unknown Venipuncture / Unknown 03/12/2024 2:23 PM EST 03/12/2024 2:28 PM EST us Andrew Edward DO LAB BLOOD ORDERABLES Final Resu lt Performing Organization Address City/[facility]/ZIP Co de Phone Number [facility] [address] [place] [address], [place] * XR Chest Portable 1 View [...] obtain the completed interpretation. ? Workstation ID: [id number] Narrative 03/12/2024 1:33 PM EST COMPARISON: X-ray 11/22/2022. Resulting Agency Comment [id number] Procedure Note Shira Gusman MD - 03/12/2024 COMPARISON: X-ray 11/22/2022. IMPRESSION: FINDINGS AND IMPRESSION: No gross focal consolidation, pleural effusion or pneumothorax. Hazy andstreaky left basilar/retrocardiac opacities, likely representingatelectasis. Heart size and pulmonary vasculature within normal limits given technique.No acute osseous abnormality. Sternotomy wires. Shira Babin, have reviewed the examination and concur with thefindings as reported or so edited. Trainee: Belem Nguyễn If this radiology report contains a blank impression section, it is anincomplete radiology report. Please contact the interpreting radiologistor applicable radiology division as soon as possible to obtain thecompleted interpretation. Workstation ID: [id number] us Delmy Ocampo MD IMG XR PROCEDURES Final Result * Gold Top (03/12/2024 12:50 PM EST) Only the most recent of2 resultswithin the time period is included. Extra Tube Hold for add-ons. 03/12/2024 5:05 PM EST [facility] Comment:Auto resulted. Blood Structure of peripheral vein / Unknown Venipuncture / Unknown 03/12/2024 12:50 PM EST 03/12/2024 12:59 PM EST Delmy Ocampo MD LAB BLOOD ORDERABLES Final Resul t Performing Organization Address City/[facility]/ZIP Co de Phone Number [facility] [address] [place] [address], * Price Top (03/12/2024 12:49 PM EST) Extra Tube Hold for add-ons. 03/12/2024 5:05 PM EST [facility] Comment:Auto resulted. Blood Structure of peripheral vein / Unknown Venipuncture / Unknown 03/12/2024 12:49 PM EST 03/12/2024 12:58 PM EST Delmy Ocampo MD LAB BLOOD ORDERABLES Final Resul t Performing Organization Address [facility] de Phone Number [facility] [address] [place] [address], * (ABNORMAL) Smear Review (03/12/2024 12:49 PM EST) Platelet Estimate Decrease d(A) Adequate 03/12/2024 2:08 PM EST [facility] RBC Morphology Present( A) Normal, No clinically significant RBC morphology present (ICSH guidelines, 2015). 03/12/2024 2:08 PM EST [facility] [place] Cells 2+(A) Not Present 03/12/2024 2:08 PM EST [facility] Blood Structure of peripheral vein / Unknown Venipuncture / Unknown 03/12/2024 12:49 PM EST 03/12/2024 1:00 PM EST us Delmy Ocampo MD LAB BLOOD ORDERABLES Final Resul t Performing Organization Address [facility] de Phone Number [facility] [address] [place] [address], * (ABNORMAL) NT-proBNP (03/12/2024 12:49 PM EST) Pro-B-Type Natriuretic Peptide 414(H) <300 pg/mL 03/12/2024 2:09 PM EST [facility] Comment: Patient Age:? Congestive [...] Performing Organization Address [facility] de Phone Number [facility] [address] [place] [address], [place] * Lavender Top (03/12/2024 12:49 PM EST) Only the most recent of2 resultswithin the time period is included. Extra Tube Hold for add-ons. 03/12/2024 5:05 PM EST [facility] Comment:Auto resulted. Blood Structure of peripheral vein / Unknown Venipuncture / Unknown 03/12/2024 12:49 PM EST 03/12/2024 1:00 PM EST Delmy Ocampo MD LAB BLOOD ORDERABLES Final Resul t [facility] [address] [place] [address], [place] * Light Green Top (03/12/2024 12:49 PM EST) Extra Tube Hold for add-ons. 03/12/2024 5:05 PM EST [employer] [facility] Comment:Auto resulted. Blood Structure of peripheral vein / Unknown Venipuncture / Unknown 03/12/2024 12:49 PM EST 03/12/2024 12:59 PM EST us Delmy Ocampo MD LAB BLOOD ORDERABLES Final Resul t [facility] [address] [place] [address], [place] * Red Top (03/12/2024 12:49 PM EST) Extra Tube Hold for add-ons. 03/12/2024 5:05 PM EST [facility] Comment:Auto resulted. Blood Structure of peripheral vein / Unknown Venipuncture / Unknown 03/12/2024 12:49 PM EST 03/12/2024 12:58 PM EST us Delmy Ocampo MD LAB BLOOD ORDERABLES Final Resul t [facility] [address] [place] [address], [place] * Light Blue Top (03/12/2024 12:49 PM EST) Extra Tube Hold for add-ons. 03/12/2024 5:05 PM EST [facility] Comment:Auto resulted. Blood Structure of peripheral vein / Unknown Venipuncture / Unknown 03/12/2024 12:49 PM EST 03/12/2024 12:58 PM EST us Delmy Ocampo MD LAB BLOOD ORDERABLES Final Resul t Performing Organization Address [facility]/ZIP Co de Phone Number [facility] [address] [place] [address], [place] * (ABNORMAL) POCT I-STAT Lactate W/VBG, interfaced (03/12/2024 12:40 PM EST) Sample Type, POCT Venous 03/12/2024 12:43 PM EST [facility] Lactate, POCT 3.58(H) 0.9 - 1.7 mmol/L 03/12/2024 12:43 PM EST [facility] pH, POCT 7.54(H) 7.31 - 7.41 pH 03/12/2024 12:43 PM EST [facility] pCO2, POCT 16.1(L) 41 - 51 mm Hg 03/12/2024 12:43 PM EST [facility] pO2, POCT 33(L) 35 - 40 mm Hg 03/12/2024 12:43 PM EST [facility] Base Excess, POCT -9(L) 0 - 3 mmol/L 03/12/2024 12:43 PM EST [facility] HCO3, POCT 13.7(L) 23 - 28 mmol/L 03/12/2024 12:43 PM EST [facility] TCO2, POCT 14(LL) 24 - 29 mmol/L 03/12/2024 12:43 PM EST [facility] Saturated O2, POCT 75 70 - 75 % 03/12/2024 12:43 PM EST [facility] Javon's Test, POCT N/A 03/12/2024 12:43 PM EST [facility] Blood 03/12/2024 12:4 0 PM EST 03/12/2024 12:43 PM EST us Delmy Ocampo MD LAB POCT ORDERABLES - DEVICE Fin al Result [facility] [address] [place] [address], [place] * XR Chest, Outside Result (03/12/2024) [...] obtained. The patient was brought to the wharf laborer and placed on the table. The [...] Clotting Time, interfaced (02/10/2024 11:12 AM EST) Pathologist [facility] Sample Type, POCT Arterial 02/10/2024 11:13 AM EST [facility] ACT Average, POCT 187 See Comment Seconds 02/10/2024 11:13 AM EST [facility] Comment: Therapeutic Range: Baseline: 75-127 Cardiac Catherization Lab: 200-300 EP Lab: 200-400 Perfusion and OR - Cardiac Surgery: 450 Valve replacement: 480 Blood 02/10/2024 11:1 2 AM EST 02/10/2024 11:13 AM EST Jerrell Camarillo MD LAB POCT ORDERABLES - DEVICE F inal Result [facility] [address] [place] [address], * (ABNORMAL) CBC (01/26/2024 1:44 PM EST) Pathologist [facility] White Blood Cell Count 5.9 3.8 - 10.8 Thousand/ uL 01/27/2024 12:04 AM EST [facility] Red Blood Cell Count 5.23 4.20 - 5.80 Million/u L 01/27/2024 12:04 AM EST [employer] [facility] Hemoglobin 15.7 13.2 - 17.1 g/dL 01/27/2024 12:04 AM EST [facility] Hematocrit 47.6 38.5 - 50.0 % 01/27/2024 12:04 AM EST [employer] [facility] MCV 91.0 80.0 - 100.0 fL 01/27/2024 12:04 AM EST [facility] MCH 30.0 27.0 - 33.0 pg 01/27/2024 12:04 AM EST [facility] MCHC 33.0 32.0 - 36.0 g/dL 01/27/2024 12:04 AM EST [facility] Comment: For adults, a slight decrease in the calculated MCHC value (in the range of 30 to 32 g/dL) is most likely not clinically significant; however, it should be interpreted with caution in correlation with other red cell parameters and the patient's clinical condition. RDW 13.1 11.0 - 15.0 % 01/27/2024 12:04 AM EST [facility] Platelet Count 127(L) 140 - 400 Thousand/ uL 01/27/2024 12:04 AM [facility] MPV 11.1 7.5 - 12.5 fL 01/27/2024 12:04 AM [facility] Blood Structure of peripheral vein / Unknown 01/26/2024 1:44 PM EST 01/26/2024 10:54 PM EST Narrative [facility] - 01/27/2024 12:08 AM EST FASTING:NO Renata Cristina NP LAB BLOOD ORDERABLES Final Result [facility] [address] [facility] 3rd Floor, [place] [address], [facility] [address] [place] [address] * Basic metabolic panel (01/26/2024 1:44 PM EST) Glucose 120 65 - 139 mg/dL 01/27/2024 12:06 AM [facility] Comment: ? Non-fasting reference interval BUN 24 7 - 25 mg/dL 01/27/2024 12:06 AM [facility] Creatinine 1.26 0.70 - 1.35 mg/dL 01/27/2024 12:06 AM EST [facility] eGFR 63 > OR = 60 mL/min/1. 73m2 01/27/2024 12:06 AM EST [facility] Bun/Creatinine Ratio SEE NOTE: (calc) 01/27/2024 12:06 AM [facility] Comment: ?? Not Reported: BUN and Creatinine are within ?? reference range. ? Sodium 143 135 - 146 mmol/L 01/27/2024 12:06 AM EST [facility] Potassium 4.3 3.5 - 5.3 mmol/L 01/27/2024 12:06 AM EST [facility] Chloride 105 98 - 110 mmol/L 01/27/2024 12:06 AM [facility] Carbon Dioxide 31 20 - 32 mmol/L 01/27/2024 12:06 AM [facility] Calcium 9.0 8.6 - 10.3 mg/dL 01/27/2024 12:06 AM [facility] Blood Structure of peripheral vein / Unknown 01/26/2024 1:44 PM EST 01/26/2024 10:56 PM EST Narrative [facility] - 01/27/2024 12:08 AM EST FASTING:NO Renata Cristina TICKET COUNTER LAB BLOOD ORDERABLES Final Result [facility] [address] [facility] 3[address] Floor, [place] [address], [facility] [address] [place] [address] * Vitamin D, 25-Hydroxy, Total, Immunoassay (07/24/2020 11:27 AM EDT) Calcidiol+ercalc idiol 32 30 - 100 ng/mL 07/24/2020 8:52 PM EDT [facility] Comment: Vitamin D Status ? 25-OH Vitamin D: Deficiency: ?<20 ng/mL Insufficiency: ? 20 - 29 ng/mL Optimal: ? > or = 30 ng/mL For 25-OH Vitamin D testing on patients on D2-supplementation and patients for whom quantitation of D2 and D3 fractions is required, the QuestAssureD(TM) 25-OH VIT D, (D2,D3), LC/MS/MS is recommended: order code [id number] (patients >2yrs). See Note 1 Note 1 For additional information, please refer to http://education.Hemarina/faq/VNE990 (This link is being provided for informational/ educational purposes only.) Blood Structure of peripheral vein / Unknown Venipuncture / Unknown 07/24/2020 11:27 AM EDT 07/24/2020 11:53 AM EDT Narrative [facility] 07/24/2020 8:52 PM EDT [facility] Received Date: us Kamran Jones MD LAB BLOOD ORDERABLES Final R esult [facility] [address] [facility] [address], [place] [address], [facility] [address] [facility] [address], [place] [address], * (ABNORMAL) PTH, Intact (without Calcium) (07/24/2020 11:27 AM EDT) Parathyroid Hormone, Intact 115(H) 14 - 64 pg/mL 07/25/2020 10:44 AM EDT [facility] Comment: Interpretive Guide ?Intact PTH ? Calcium [...] AM EDT 07/24/2020 11:53 AM EDT Narrative [facility] - 07/25/2020 10:44 AM EDT [facility] Received Date: Kamran Jones MD LAB BLOOD ORDERABLES Final R esult Performing Organization Address [facility] Co de Phone Number [address], [place] [address], [facility] [address], [place] [address], * Hepatitis C Antibody w/Reflex to HCV RNA, Quantitative PCR (10/03/2015 10:44 AM EDT) Hepatitis C Antibody NON-REACTI VE NON-REACT [facility] Signal To Cut-Off 0.02 <1.00 [facility] 10/03/2015 10:4 4 AM EDT 10/03/2015 11:46 AM EDT Stanislav Rothman MD LAB BLOOD ORDERABLES Final Re sult Performing Organization Address [facility] Co de Phone Number [address], [place] [address], from Last 3 Months or Most Recently Relevant to Health Maintenance Additional Health Concerns Infection Onset Date Last Indicated COVID-19 - Confirmed infection 03/12/2024 0 03/12/2024 Insurance ([place]) [address] [place] [address] MEDICARE [facility] Advance Directives Documents on File Type Date Recorded Patient Environmental Health And Safety Leader Expl [facility] Health Care Proxy 10/05/2011 12:00 AM 10/04 * DNR/DNI (with non-invasive ventilation only) (Latest Code Status on File) Date Activated Date Inactivated Comments 03/12/2024 8:41 PM 03/16/2024 5:32 PM * Presumed Full Code Date Activated Date Inactivated Comments 03/12/2024 8:09 PM 03/12/2024 8:41 PM * Full Code Date Activated Date Inactivated Comments 02/10/2024 8:03 AM 02/10/2024 5:08 PM Care Teams Visual Merchandising Coordinator Relationship Specialty Start Date End Date Patient, Has No Pcp Or Ref DO NOT EDIT THIS RECORD VIA PROVIDER ON THE FLY PCP - General Wheat Inspector 09/26/23
--- OUTSIDE RECORDS SUMMARY | 2024-03-29 15:49 | XMS_ITS | Encounter Summary ---
Author Organization [facility] Address [address] [facility] [address] [place] [address] Phone Care Team Providers Care Crab Fisher Name Role Phone Neftaly Hoover MD Primary Care Provider [phone] Encounter Details Date Type Department Care Team (Late Contact Info) Description 05/24/2022 Documentation Only [facility] [address] [place] [phone] Lobito Quintanilla MD Social History Tobacco Use Types Packs/Day Years [...] Encounters Date Type Department Care Team (Late Contact Info) Description 05/21/2024 1:45 PM EDT Office Visit [facility] [address] [place] [address] Neftaly Hoover MD [address] [facility] [address] [place] [phone] documented as of this encounter Visit Diagnoses Not on filedocumented in this encounter Care Teams Crab Fisher Relationship Specialty Start Date End Date Neftaly Hoover MD [address] [facility] [address] [place] [phone] PCP - General Nephrology 07/25/23 documented as of this encounter
--- OUTSIDE RECORDS SUMMARY | 2024-03-29 15:49 | XMS_ITS | Clinical Summary ---
Author Organization [facility] Address [address] [facility] [address] [address] [place] [address] Phone Care Team Providers Care Customer Engagement Analyst Name Role Phone Neftaly Hoover MD Primary Care Provider [phone] Allergies Active Allergy Reactions Criticality Noted Date Comments Spironolactone Other (see comments) 09/11/2020 Medications Aspirin 81 MG capsule Take 1 tablet by mouth 1 (one) time each day Active atorvastatin (LIPITOR) 40 MG tablet Take 1 tablet by mouth 1 (one) time each day Active citalopram (CeleXA) 20 MG tablet Take 1 tablet by mouth 1 (one) time each day Active cycloSPORINE modified (NEORAL) 25 MG capsule Take 3 capsules by mouth 2 (two) times a day Active losartan (COZAAR) 100 MG tablet Take 1 tablet by mouth 1 (one) time each day Active metoprolol tartrate (LOPRESSOR) 100 MG tablet Take 1 tablet by mouth 2 (two) times a day Active mycophenolate (CELLCEPT) 500 MG tablet Take 1 tablet by mouth 2 (two) times a day Active predniSONE (DELTASONE) 5 MG tablet Take 1 tablet by mouth 1 (one) time each day Active Calcium Carbonate-Heidi min D3 600-400 MG-UNIT tablet Calcium 600+D 600-400 MG-UNIT Oral Tablet TAKE 1 TABLET 2 TIMES DAILY Refills: 0 LUANN PEPE M.D.; Started 31-Jul-2010 Active 1 Active Multiple Vitamin (MULTIVITAMIN ADULT PO) Multivitamins CAPS 1TAB Qday, Refills: 0 Started 26-Mar-2008 Active 9 Active Active Problems Problem Noted Date Diagnosed Date Renal osteodystrophy 07/25/2023 Stage 3a chronic kidney disease 05/22/2020 Essential hypertension 05/22/2020 H/O: heart recipient 05/22/2020 Hyperparathyroidism 03/18/2020 Subclinical hypothyroidism 02/15/2020 Syncope 02/04/2018 Heart transplant status 08/16/2017 Fracture of third metatarsal bone 08/09/2017 Pain in right foot 07/11/2017 Solitary pulmonary nodule 01/13/2016 Dyspnea 01/21/2015 Hoarseness 01/21/2015 Full incontinence of feces 10/04/2014 Dyslipidemia 11/30/2013 Traumatic or non-traumatic injury 08/31/2013 Disorder of sebaceous gland 11/07/2012 Aphasia 03/17/2012 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 [address] [facility] [address] [place] [phone] Chester Cid MD from Last 3 Months Immunizations Name Administration Dates Next Due Pneumococcal Polysaccharide 06/08/2013 Family History Medical History Relation Comments Cancer Child Cancer Sibling 1 Diabetes Sibling 2 Relation Status Comments Child Father Unknown Mother Unknown Sibling 1 Sibling 2 Social History Tobacco Use Types Packs/Day Years Used Date Smoking Tobacco: Never Smokeless Tobacco: Never Tobacco Cessation:Counseling Given: Not Answered Alcohol Use Standard Drinks/Week Comments Not Currently 0 (1 standard drink = 0.6 oz pure alcohol) Alcoholic Drinks/day: Occasional social drink Sex and Gender Information Value Date Recorded Sex Assigned at Not on file Legal Sex Male 4:58 PM EST Gender Identity Not on file Sexual Orientation Not on file Last Filed Vital Signs Vital Sign Reading Time Taken Comments Blood Pressure 122/70 07/25/2023 12:59 PM EDT Pulse 83 07/25/2023 12:59 PM EDT Temperature - - Respiratory Rate - - Oxygen Saturation 98% 07/25/2023 12:59 PM EDT Inhaled Oxygen Concentration - - Weight 86.5 kg (190 lb 9.6 oz) 07/25/2023 12:59 PM EDT Height 180.3 cm (5' 11 ) 11/25/2022 1:09 PM EDT Body Mass Index 26.58 11/25/2022 1:09 PM EDT Plan of Treatment Upcoming Encounters Date Type Department Care Team (Late st Contact Info) Description 05/21/2024 1:45 PM EDT Office Visit [facility] [address] [place] [address] Neftaly Hoover MD [address] [facility] [address] [place] [address] Health Maintenance Due Date Last Done Comments Colorectal Cancer Screening: Annual FOBT 2006 Colorectal Cancer Screening: Colonoscopy 2006 Colorectal Cancer Screening: Sigmoidoscopy 2006 Pneumococcal Vaccine: 65+ Ye ars (2 of 2 - PCV) 06/08/2014 06/08/2013 Influenza Vaccine (#1) 2023 Hepatitis B Vaccine Aged Out No longe r eligible based on patient's age to complete this topic Insurance [place] Care Teams Customer Engagement Analyst Relationship Specialty Start Date End Date Neftaly Hoover MD [address] [address] PCP - General Nephrology 07/25/23
== END 2024-03-29 13:49 | disposition home or self-care (01) ==
PROVIDERS: Visit Provider Internal Medicine Hypertension Specialist
DX: Z94.1 Heart transplant status (principal); N18.30 Chronic kidney disease, stage 3 unspecified
CPT/HCPCS: 99214

== ENCOUNTER → 2024-03-29 13:23 | Outpatient (BNVA) | payer MEDICARE, MEDICAID, SELFPAY | PROVIDERS: Visit Provider Internal Medicine Hypertension Specialist | DX: N18.30 Chronic kidney disease, stage 3 unspecified (principal); Z94.1 Heart transplant status | CPT/HCPCS: 99212 ==